=== PATIENT | male | born 1950 | race Caucasian/White ===

== ENCOUNTER 2017-06-13 20:37 | Emergency (ER) | payer BC, SELFPAY ==
[2017-06-13 20:46] VITALS: BP 146/95; PULSE 89; RESP 14; TEMP 36.5; O2SAT 99; BMI 29.2
--- NOTE | 2017-06-13 20:56 | CT_ITS ---
CT abdomen pelvis wo con Ordering Physician: Dima Jones MD Patient Age: 66 years: Male HISTORY: ITS.REASON: pain TECHNIQUE: Helical CT scanning performed through abdomen and pelvis with no oral or IV contrast utilized. COMPARISON :No relevant studies FINDINGS Lung bases,.. Mild dependent atelectasis. Scattered blebs Heart normal size ABDOMEN/PELVIS. Lack of oral and IV contrast decreases sensitivity. Liver:. No focal lesions. Mild hepatic steatosis.No biliary ductal dilatation Gallbladder:. No discrete calcified stones no acute findings. Pancreas. Unremarkable on this noncontrast study. Adrenals: satisfactory. Spleen. Modest size with scattered small renal breast calcifications. KIDNEYS. LEFT KIDNEY:. . Only minor fullness and minor dilatation left pelvicalyceal system. But no bee hydronephrosis. Prominent Stranding is seen about the left kidney-this is stranding may reflect prior higher grade obstructive uropathy, although cannot exclude associated pyelonephritis.. . Left ureter is more generous than the right. This appears be due to 2 adjacent small calculi at the distal most left ureter healing bilobed calcification here. These measure up to 3.5 mm transverse maxillary and together measure 5 mm length along the axis of the ureter. But these are located at the distal most left ureter just proximal to the left UVJ.. No additional calculi at the left kidney. 15 mm cyst at the medial portion upper left.. Likely benign cyst. RIGHT KIDNEY. Trace stranding. No calculi. No hydronephrosis or dilatation. PELVIS. Urinary bladder. Unremarkable seminal vesicles unremarkable. No free fluid. GI TRACT . Diverticulosis colon most extensive at sigmoid colon with a few diverticuli at descending colon. No diverticulitis. Upper normal wall thickness at the splenic flexure most likely reflecting lack of distention. Appendix is normal. Terminal ileum unremarkable. Small bowel unremarkable. Food filled stomach. Diffuse calcification aorta and iliac vessels. No aneurysm. Small fat-containing hernia bilateral Osseous. Degenerative disc space narrowing and disc bulge L3/4. Degenerative facet changes most evident at lower L-spine. No osseous lesions. Minor early degenerative changes at hips right greater than left. . . IMPRESSION: 1. Current Mild obstructive uropathy on left.: ... 2 small adjacent calculi at distal most left ureter just adjacent to the left UVJ. ... These calculi Measure up to 3.5 mm transverse & together measure 5 mm length .... Mild obstruction left ureter with mild fullness, minor dilatation of left pelvicalyceal system. .... Prominent stranding about the left kidney, may reflect a previous high-grade obstruction although could not exclude developing pyelonephritis with this appearance. Correlation required 2. Colonic diverticulosis most evident sigmoid colon. No diverticulitis. 3. Mild hepatic steatosis.
[2017-06-13 21:37] LABS: Basophils # 0.1 K/mm3 (0-0.2); Basophils % 0.8 % (0.1-2.0); Eosinophils # 0.1 K/mm3 (0.0-0.4); Eosinophils % 0.4 % (0.1-12.0); Hematocrit 43.7 % (42.0-52.0); Hemoglobin 14.6 g/dL (14.1-18.0); Lymphocytes % 17.9 K/mm3 (10-50); Mean Corpuscular HGB Conc 33.4 g/dL (31.8-35.4); Mean Corpuscular Hemoglobin 31.1 pg (27.0-31.2); Mean Platelet Volume 8.5 fl (7.4-10.4); Monocytes # 0.7 K/mm3 (0.1-1.0); Monocytes % 4.3 % (1.7-9.3); Neutrophils # 12.7 K/mm3 (1.8-7.8); Neutrophils % 76.7 % (37.0-80.0); Platelet Count 290 K/mm3 (142-424); Red Cell Distribution Width 12.8 % (11.5-17.5); White Blood Count 16.5 K/mm3 (4.8-10.8)
--- NOTE | 2017-06-13 21:43 | HMH.EDGENADL ---
ED Disposition Clinical Impression: Ureteral calculus Disposition: Home, Self-Care Condition on Discharge: Good Instructions: DI for Kidney Stones Additional Instructions: Additional instructions for KIDNEY STONE (URETERAL CALCULUS): See your physician as soon as possible for further evaluation. Drink plenty of fluids. Strain your urine and save any stones you catch. Return immediately if you develop a fever or have uncontrollable vomiting or uncontrollable pain. Additional instructions for CONTROLLED SUBSTANCES: You have been prescribed a medication that is a controlled substance. Controlled substances include pain medications known as opiates and sedative nerve medications known as benzodiazepines. Some common opiates include: Codeine (such as Tylenol #3) Hydrocodone (Vicodin, Lortab, Lorcet, [place]) Oxycodone (Percocet, Percodan, Oxycodone, Oxy IR) Some common benzodiazepines include: Diazepam (Valium) Lorazepam (Ativan) Alprazolam (Xanax) Clonazepam (Klonopin) Oxazepam (Serax) All of these controlled substances are highly addictive and frequently abused. Misuse can and frequently does lead to addiction as well as overdose and . Medication should be stored in a locked cabinet or other secure storage unit. Do not store the medication in a motor vehicle. Short term supplies, 3 days or less, are prescribed because of the highly addictive nature of the medication. Any of the controlled substance medication NOT taken should be disposed of properly and NOT SAVED. The recommended method of disposing of unused medications is: Place the medicines in a sealable plastic bag. If the medicine is a solid, crush it or add water to dissolve it. Add something undesirable (cat litter, coffee grounds, etc.) Dispose of sealed bag in household trash Do not flush or pour unused medicines down a sink or drain. Controlled substances should not be shared, given away or sold. Because of the addictive nature and frequent abuse, these medications are sometimes stolen. These medications should be kept in a safe place where they cannot be stolen. Do not keep them in your car or purse. Lost or stolen prescriptions for controlled substances WILL NOT BE REFILLED in this emergency department, regardless of whether a police report was filed. Prescriptions: Oxycodone HCl/Acetaminophen [Percocet 5/325mg tablet] 1 tab PO Q6HP PRN #10 tab PRN Reason: Severe Pain Ondansetron [Zofran 4mg ODT] 4 mg PO TIDP PRN #10 tab.rapdis PRN Reason: Nausea And Vomiting Tamsulosin HCl [Flomax 0.4mg capsule] 0.4 mg PO DAILY #7 cap.er.24h Referrals: Provider,Referral, [Primary Care Provider] - - Critical Care Critical Care Time: No Attestation: On 06/13/17, the high probability of a clinically significant, sudden or life threatening deterioration of the following system(s) required my full and direct attention, intervention and personal management. The time I documented below is in addition to time spent performing reported procedures but includes the following listed in this critical care notation. Medical Decision Making Vital Signs: 06/13/17 20:46 Temperature 97.7 F Temperature Source Oral Pulse Rate [Right Radial] 89 Respiratory Rate 14 Blood Pressure [Right Arm] 146/95 Blood Pressure Mean [Right Arm] 112 Blood Pressure Source [Right Arm] Automatic Cuff Blood Pressure Position [Right Arm] Sitting 02 Sat by Pulse Oximetry 99 Oxygen Delivery Method Room Air - Lab Data Lab Results 06/13/17 21:15: WBC 16.5 H, RBC 4.70, Hgb 14.6, Hct 43.7, MCV 93.0, MCH 31.1, MCHC 33.4, RDW 12.8, Plt Count 290, MPV 8.5, Neut % (Auto) 76.7, Lymph % (Auto) 17.9, [place] % (Auto) 4.3, Eos % (Auto) 0.4, Baso % (Auto) 0.8, Neut # (Auto) 12.7 H, Lymph # (Auto) 3.0, [place] # (Auto) 0.7, Eos # (Auto) 0.1, Baso # (Auto) 0.1 06/13/17 21:15: Sodium 139, Potassium 4.3, Chloride 103, Carbon Dioxide 24, Anion Gap 16.3 H, BUN 22 H, Creatinine 1.95 H, Es
[2017-06-13 21:48] LABS: Alanine Aminotransferase 33 U/L (12-78); Albumin Level 4.3 gm/dL (3.4-5.0); Alkaline Phosphatase 83 U/L (46-116); Anion Gap 16.3 mEq/L (5-15); Aspartate Amino Transferase 22 U/L (15-37); Bilirubin,Total 0.5 mg/dL (0.2-1.0); Blood Urea Nitrogen 22 mg/dL (7-18); Calcium 9.5 mg/dL (8.5-10.1); Carbon Dioxide 24 mmol/L (21.0-32.0); Chloride 103 mmol/L (98-107); Creatinine Clearance Estimated 52 mL/min (0-300); Creatinine,Serum 1.95 mg/dL (0.70-1.30); Estimated Glomerular Filt Rate 35 ml/min (>60); GFR (African American) 42 ML/MIN (>60); Globulin 4.5 gm/dl (1.3-3.2); Glucose 140 mg/dL (74-106); Potassium 4.3 mmoL/L (3.5-5.1); Sodium 139 mmol/L (136-145); Total Protein,Serum 8.8 gm/dL (6.4-8.2)
[2017-06-13 21:56] LABS: Microscopic, Urine URINE MICROSCOPIC (MICROSCOPIC)
[2017-06-13 22:01] LABS: Appearance,Urine CLEAR (Clear); Bilirubin,Urine Negative (Negative); Blood, Urine MODERATE (Negative); Color,Urine YELLOW (Yellow); Glucose,Urine (UA) Negative (Negative); Ketones,Urine Negative (Negative); Leukocyte Esterase,Urine Negative (Negative); Nitrate,Urine Negative (Negative); PH,Urine 5.5 (5.0-8.5); Protein,Urine TRACE (Negative); Specific Gravity, Urine >= 1.030 (1.005-1.030); Urobilinogen,Urine 0.2 EU/dl (0.2)
[2017-06-13 22:05] LABS: MANUAL DIFFERENTIAL MANUAL DIFFERENTIAL (MANUAL DIFF)
[2017-06-13 22:10] LABS: Mucus,Urine 1+ /lpf; WBC,Urine Occasional #/hpf (0-3)
[2017-06-13 23:04] LABS: Hypersegmented Neutrophils 1+; Lymphocytes % 16 % (10-50); Neutrophils % 74 % (42-76); Platelet Estimate Normal; Total Cells Counted 100
[2017-06-13 23:05] LABS: Macrocytosis 1+
[2017-06-13 23:13] VITALS: BP 136/79; PULSE 95; RESP 20; TEMP 36.8; O2SAT 96
== END 2017-06-13 23:15 | disposition home or self-care (01) ==
PROVIDERS: Emergency Provider Emergency Medicine; Family Provider Internal Medicine Adolescent Medicine
DX: N20.1 Calculus of ureter (principal); Z79.82 Long term (current) use of aspirin; Z79.899 Other long term (current) drug therapy; Z87.891 Personal history of nicotine dependence
CPT/HCPCS: 74176; 80053; 81001; 85007; 85025; 96360; 96365; 96375; 99283; J2405

== ENCOUNTER 2017-06-16 14:59 | Observation (INO) | payer BC, SELFPAY ==
[2017-06-16 14:13] LABS: Basophils # 0.1 K/mm3 (0-0.2); Basophils % 0.6 % (0.1-2.0); Eosinophils # 0.2 K/mm3 (0.0-0.4); Eosinophils % 1.1 % (0.1-12.0); Hematocrit 39.5 % (42.0-52.0); Hemoglobin 13.3 g/dL (14.1-18.0); Mean Corpuscular HGB Conc 33.8 g/dL (31.8-35.4); Mean Corpuscular Hemoglobin 31.5 pg (27.0-31.2); Mean Corpuscular Volume 93.4 fl (80-94); Mean Platelet Volume 8.3 fl (7.4-10.4); Monocytes # 1.3 K/mm3 (0.1-1.0); Monocytes % 8.2 % (1.7-9.3); Neutrophils # 11.2 K/mm3 (1.8-7.8); Neutrophils % 71.1 % (37.0-80.0); Platelet Count 277 K/mm3 (142-424); Red Blood Count 4.23 M/mm3 (4.60-6.20); Red Cell Distribution Width 12.8 % (11.5-17.5); White Blood Count 15.7 K/mm3 (4.8-10.8)
[2017-06-16 14:16] LABS: MANUAL DIFFERENTIAL MANUAL DIFFERENTIAL (MANUAL DIFF)
[2017-06-16 14:31] LABS: Alanine Aminotransferase 22 U/L (12-78); Albumin Level 3.4 gm/dL (3.4-5.0); Albumin/Globulin Ratio 0.7 (1.1-1.8); Alkaline Phosphatase 69 U/L (46-116); Anion Gap 15.1 mEq/L (5-15); Aspartate Amino Transferase 13 U/L (15-37); Bilirubin,Total 0.7 mg/dL (0.2-1.0); Blood Urea Nitrogen 30 mg/dL (7-18); Calcium 8.9 mg/dL (8.5-10.1); Carbon Dioxide 23 mmol/L (21.0-32.0); Chloride 102 mmol/L (98-107); Creatinine,Serum 2.81 mg/dL (0.70-1.30); Estimated Glomerular Filt Rate 23 ml/min (>60); GFR (African American) 28 ML/MIN (>60); Globulin 4.7 gm/dl (1.3-3.2); Glucose 110 mg/dL (74-106); Potassium 4.1 mmoL/L (3.5-5.1); Sodium 136 mmol/L (136-145); Total Protein,Serum 8.1 gm/dL (6.4-8.2)
[2017-06-16 14:43] LABS: Lymphocytes % 17 % (10-50); Monocytes % 9 % (2-9); Neutrophils % 72 % (42-76); Platelet Estimate Normal; Total Cells Counted 100
[2017-06-16 14:44] LABS: RBC Morphology Normal
[2017-06-16 15:30] VITALS: BP 116/62; PULSE 82; RESP 18; TEMP 36.8; O2SAT 98; BMI 29.9
--- NOTE | 2017-06-16 16:42 | XR_ITS ---
XR KUB CLINICAL INDICATION: Follow-up ureteral stone, flank pain ITS.REASON: KIDNEY STONE ORDERING PHYSICIAN: Nick Espinoza MD PATIENT AGE: 66 years COMPARISON: CT scan 06/13/2017 FINDINGS: There is a persistent 4 mm calcific density in the left pelvic region consistent with a residual ureteral vesicle junction stone. No other calculi apparent. Nonspecific bowel gas pattern with atherosclerotic calcification of the iliac vessels noted. No acute bony anomalies. IMPRESSION: 4 mm left ureterovesical junction stone not significant change from the CT scan of 06/13/2017
--- NOTE | 2017-06-16 16:51 | HMH.HP ---
*Admission Date: 06/16/17 *Chief complaint: dysuria, flank pain *History of present illness: Patient present to PCP office for ED FU on kidney stone. Patient was seen in the ED on 06/13 for severe left sided flank pain. CT scan showed left sided kidney stones with mild obstruction and renal stranding concerning for pylonephritis. WBC 16.9, creatinine 1.9, up from baseline of 1.4. Patient was d/c'd home on flomax. Today, he reports flank pain has resolved. Last [place] was last evening. Reports fevers started yesterday. No nausea, loss of appetite or vomiting. Repeat labs showed creatinine 2.81 and WBC 15.7. Patient was admitted for IV hydration and urology consult. [facility] History I have reviewed the patient's past medical history: Yes Medical History: Denies:: Cancer, Diabetes Mellitus Type 1, Diabetes Mellitus Type 2, MRSA Laterality Cases: Right: Total Knee Replacement, Bilateral: ACL Repair Other Surgeries: Yes: Coronary Stent Amputation: No Fractures: No - *Social History Educational Level: Completed College Smoking Status: Former smoker Tobacco Type: cigarettes Alcohol Intake: never Occupational Status: retired Housing: house Household Members: spouse - Psychiatric History Expresses thoughts of harming self/others: None Suicide Plan Description: No Plan *Family Hx:: Heart Attack, Hyperlipidemia, Hypertension Review of Systems - Review of Systems Review of systems:: pertinent systems reviewed and negative unless documented below - Constitutional Reports fever(s) - *Genitourinary Reports painful urination, Reports blood in urine Meds Home Medications Medication Instructions Recorded Confirmed Type Amlodipine Besylate [Amlodipine 10 mg PO DAILY 06/13/17 06/16/17 History 10mg Tab] Aspirin [Aspirin EC 325mg Tab] 325 mg PO DAILY 06/13/17 06/16/17 History Atorvastatin Calcium [Atorvastatin 80 mg PO DAILY 06/13/17 06/16/17 History 80mg Tab] Bisoprolol Fumarate [Bisoprolol 10 mg PO DAILY 06/13/17 06/16/17 History Fumarate] Lisinopril [Lisinopril 20mg Tab] 20 mg PO DAILY 06/13/17 06/16/17 History Prasugrel HCl [Prasugrel 10mg 10 mg PO DAILY 06/13/17 06/16/17 History Tab] Tamsulosin HCl [Flomax 0.4mg 0.4 mg PO DAILY 06/16/17 06/16/17 History capsule] Allergies Allergy/AdvReac Type Severity Reaction Status Date / Time No Known Allergies Allergy Verified 06/13/17 20:58 Exam Vital signs and Labs for Last 24 Hours: Temp Pulse Resp BP Pulse Ox 98.2 F 82 18 116/62 98 06/16/17 15:30 06/16/17 15:30 06/16/17 15:30 06/16/17 15:30 06/16/17 15:30 Laboratory Results - last 24 hr 06/16/17 14:02: Sodium 136, Potassium 4.1, Chloride 102, Carbon Dioxide 23, Anion Gap 15.1 H, BUN 30 H D, Creatinine 2.81 H D, Estimated GFR 23 L, Est GFR ( Amer) 28 L D, Glucose 110 H, Calcium 8.9, Total Bilirubin 0.7, AST 13 L D, ALT 22 D, Alkaline Phosphatase 69, Total Protein 8.1, Albumin 3.4, Globulin 4.7 H, Albumin/Globulin Ratio 0.7 L 06/16/17 14:02: WBC 15.7 H, RBC 4.23 L, Hgb 13.3 L, Hct 39.5 L, MCV 93.4, MCH 31.5 H, MCHC 33.8, RDW 12.8, Plt Count 277, MPV 8.3, Neut % (Auto) 71.1, Lymph % (Auto) 19.0, [place] % (Auto) 8.2, Eos % (Auto) 1.1, Baso % (Auto) 0.6, Neut # (Auto) 11.2 H, Lymph # (Auto) 3.0, [place] # (Auto) 1.3 H, Eos # (Auto) 0.2, Baso # (Auto) 0.1, Total Counted 100, Neutrophils % (Manual) 72, Band Neutrophils % 1.0, Lymphocytes % (Manual) 17, Monocytes % (Manual) 9, Basophils % (Manual) 1.0, Platelet Estimate Normal, RBC Morphology Normal I & O for Last 24 hours: Intake & Output 06/14/17 06/15/17 06/16/17 06/17/17 11:59 11:59 11:59 11:59 Weight 213 lb 9 oz Narrative: Alert and oriented x 3. Rate and rhythm regular. No LE edema. Lung sounds clear and equal. Abdomen soft and nontender. Normoactive bowel sounds No CVA tenderness H&P: Result - Labs Labs: Short CBC 06/16/17 Range/Units 14:02 WBC 15.7 H (4.8-10.8) K/mm3 Hgb 13.3 L
--- NOTE | 2017-06-16 16:54 | P.HP_ITS ---
*Admission Date: 06/16/17 *Chief complaint: dysuria, flank pain *History of present illness: Patient present to PCP office for ED FU on kidney stone. Patient was seen in the ED on 06/13 for severe left sided flank pain. CT scan showed left sided kidney stones with mild obstruction and renal stranding concerning for pylonephritis. WBC 16.9, creatinine 1.9, up from baseline of 1.4. Patient was d/c'd home on flomax. Today, he reports flank pain has resolved. Last [place] was last evening. Reports fevers started yesterday. No nausea, loss of appetite or vomiting. Repeat labs showed creatinine 2.81 and WBC 15.7. Patient was admitted for IV hydration and urology consult. [facility] [place] History I have reviewed the patient's past medical history: Yes Medical History: Denies:: Cancer, Diabetes Mellitus Type 1, Diabetes Mellitus Type 2, MRSA Laterality Cases: Right: Total Knee Replacement, Bilateral: ACL Repair Other Surgeries: Yes: Coronary Stent Amputation: No Fractures: No - *Social History Educational Level: Completed College Smoking Status: Former smoker Tobacco Type: cigarettes Alcohol Intake: never Occupational Status: retired Housing: house Household Members: spouse - Psychiatric History Expresses thoughts of harming self/others: None Suicide Plan Description: No Plan *Family Hx:: Heart Attack, Hyperlipidemia, Hypertension Review of Systems - Review of Systems Review of systems:: pertinent systems reviewed and negative unless documented below - Constitutional Reports fever(s) - *Genitourinary Reports painful urination, Reports blood in urine Meds Home Medications Medication Instructions Recorded Confirmed Type Amlodipine Besylate [Amlodipine 10 mg PO DAILY 06/13/17 06/16/17 History 10mg Tab] Aspirin [Aspirin EC 325mg Tab] 325 mg PO DAILY 06/13/17 06/16/17 History Atorvastatin Calcium [Atorvastatin 80 mg PO DAILY 06/13/17 06/16/17 History 80mg Tab] Bisoprolol Fumarate [Bisoprolol 10 mg PO DAILY 06/13/17 06/16/17 History Fumarate] Lisinopril [Lisinopril 20mg Tab] 20 mg PO DAILY 06/13/17 06/16/17 History Prasugrel HCl [Prasugrel 10mg 10 mg PO DAILY 06/13/17 06/16/17 History Tab] Tamsulosin HCl [Flomax 0.4mg 0.4 mg PO DAILY 06/16/17 06/16/17 History capsule] Allergies Allergy/AdvReac Type Severity Reaction Status Date / Time No Known Allergies Allergy Verified 06/13/17 20:58 Exam Vital signs and Labs for Last 24 Hours: Temp Pulse Resp BP Pulse Ox 98.2 F 82 18 116/62 98 06/16/17 15:30 06/16/17 15:30 06/16/17 15:30 06/16/17 15:30 06/16/17 15:30 Laboratory Results - last 24 hr 06/16/17 14:02: Sodium 136, Potassium 4.1, Chloride 102, Carbon Dioxide 23, Anion Gap 15.1 H, BUN 30 H D, Creatinine 2.81 H D, Estimated GFR 23 L, Est GFR ( Amer) 28 L D, Glucose 110 H, Calcium 8.9, Total Bilirubin 0.7, AST 13 L D, ALT 22 D, Alkaline Phosphatase 69, Total Protein 8.1, Albumin 3.4, Globulin 4.7 H, Albumin/Globulin Ratio 0.7 L 06/16/17 14:02: WBC 15.7 H, RBC 4.23 L, Hgb 13.3 L, Hct 39.5 L, MCV 93.4, MCH 31.5 H, MCHC 33.8, RDW 12.8, Plt Count 277, MPV 8.3, Neut % (Auto) 71.1, Lymph % (Auto) 19.0, [place] % (Auto) 8.2, Eos % (Auto) 1.1, Baso % (Auto) 0.6, Neut # ( Auto) 11.2 H, Lymph # (Auto) 3.0, [place] # (Auto) 1.3 H, Eos # (Auto) 0.2, Baso # (Auto) 0.1, Total Counted 100, Neutrophils % (Manual) 72, Band Neutrophils % 1.0 , Lymphocytes % (Manual) 17, Monocytes % (Manual) 9, Basoph
[2017-06-16 17:08] LABS: Microscopic, Urine URINE MICROSCOPIC (MICROSCOPIC)
--- NOTE | 2017-06-16 17:14 | HMH.GSCON ---
*Admission Date: 06/16/17 *History of present illness: Patient present to PCP office for ED FU on kidney stone. Patient was seen in the ED on 06/13 for severe left sided flank pain. CT scan showed left sided kidney stones with mild obstruction and renal stranding concerning for pylonephritis. WBC 16.9, creatinine 1.9, up from baseline of 1.4. Patient was d/c'd home on flomax. Today, he reports flank pain has resolved. Last [place] was last evening. Reports fevers started yesterday. No nausea, loss of appetite or vomiting. Repeat labs showed creatinine 2.81 and WBC 15.7. Patient was admitted for IV hydration and urology consult. [facility] History Medical History: Denies:: Cancer, Diabetes Mellitus Type 1, Diabetes Mellitus Type 2, MRSA Comment: was initially seen in the emergency room your the sent home. His white count at that time was 16,000. His had no subjective fever at home. Return today for follow-up was admitted as his creatinine had increased to 2.4 and he was noted to have a low-grade temperature. He has not produced a stone but had no pain since 5 AM this morning. Laterality Cases: Right: Total Knee Replacement, Bilateral: ACL Repair Other Surgeries: Yes: Coronary Stent Amputation: No Fractures: No - *Social History Educational Level: Completed College Smoking Status: Former smoker Tobacco Type: cigarettes Alcohol Intake: never Occupational Status: retired Housing: house Household Members: spouse - Psychiatric History Expresses thoughts of harming self/others: None Suicide Plan Description: No Plan *Family Hx:: Heart Attack, Hyperlipidemia, Hypertension Meds Home Medications Medication Instructions Recorded Confirmed Type Amlodipine Besylate [Amlodipine 10 mg PO DAILY 06/13/17 06/16/17 History 10mg Tab] Aspirin [Aspirin EC 325mg Tab] 325 mg PO DAILY 06/13/17 06/16/17 History Atorvastatin Calcium [Atorvastatin 80 mg PO DAILY 06/13/17 06/16/17 History 80mg Tab] Bisoprolol Fumarate [Bisoprolol 10 mg PO DAILY 06/13/17 06/16/17 History Fumarate] Lisinopril [Lisinopril 20mg Tab] 20 mg PO DAILY 06/13/17 06/16/17 History Prasugrel HCl [Prasugrel 10mg 10 mg PO DAILY 06/13/17 06/16/17 History Tab] Tamsulosin HCl [Flomax 0.4mg 0.4 mg PO DAILY 06/16/17 06/16/17 History capsule] Allergies Allergy/AdvReac Type Severity Reaction Status Date / Time No Known Allergies Allergy Verified 06/13/17 20:58 Exam Vital signs and Labs for Last 24 Hours: Temp Pulse Resp BP Pulse Ox 98.2 F 82 18 116/62 98 06/16/17 15:30 06/16/17 15:30 06/16/17 15:30 06/16/17 15:30 06/16/17 15:30 Laboratory Results - last 24 hr 06/16/17 14:02: Sodium 136, Potassium 4.1, Chloride 102, Carbon Dioxide 23, Anion Gap 15.1 H, BUN 30 H D, Creatinine 2.81 H D, Estimated GFR 23 L, Est GFR ( Amer) 28 L D, Glucose 110 H, Calcium 8.9, Total Bilirubin 0.7, AST 13 L D, ALT 22 D, Alkaline Phosphatase 69, Total Protein 8.1, Albumin 3.4, Globulin 4.7 H, Albumin/Globulin Ratio 0.7 L 06/16/17 14:02: WBC 15.7 H, RBC 4.23 L, Hgb 13.3 L, Hct 39.5 L, MCV 93.4, MCH 31.5 H, MCHC 33.8, RDW 12.8, Plt Count 277, MPV 8.3, Neut % (Auto) 71.1, Lymph % (Auto) 19.0, [place] % (Auto) 8.2, Eos % (Auto) 1.1, Baso % (Auto) 0.6, Neut # (Auto) 11.2 H, Lymph # (Auto) 3.0, [place] # (Auto) 1.3 H, Eos # (Auto) 0.2, Baso # (Auto) 0.1, Total Counted 100, Neutrophils % (Manual) 72, Band Neutrophils % 1.0, Lymphocytes % (Manual) 17, Monocytes % (Manual) 9, Basophils % (Manual) 1.0, Platelet Estimate Normal, RBC Morphology Normal I & O for Last 24 hours: Intake & Output 06/13/17 06/14/17 06/15/17 06/16/17 23:59 23:59 23:59 23:59 Weight 96.87 kg - Constitutional no acute distress - *Routine Abdominal Exam Comments: No CVA tenderness CT scan reviewed. He has 2 small stones left ureterovesical junction each about 3 mm in size Results - Labs 06/16/17 14:02 06/16/17 14:02 Laboratory Results - last 24 h
--- NOTE | 2017-06-16 17:18 | P.CONS_ITS ---
*Admission Date: 06/16/17 *History of present illness: Patient present to PCP office for ED FU on kidney stone. Patient was seen in the ED on 06/13 for severe left sided flank pain. CT scan showed left sided kidney stones with mild obstruction and renal stranding concerning for pylonephritis. WBC 16.9, creatinine 1.9, up from baseline of 1.4. Patient was d/c'd home on flomax. Today, he reports flank pain has resolved. Last [place] was last evening. Reports fevers started yesterday. No nausea, loss of appetite or vomiting. Repeat labs showed creatinine 2.81 and WBC 15.7. Patient was admitted for IV hydration and urology consult. [facility] History Medical History: Denies:: Cancer, Diabetes Mellitus Type 1, Diabetes Mellitus Type 2, MRSA Comment: was initially seen in the emergency room your the sent home. His white count at that time was 16,000. His had no subjective fever at home. Return today for follow-up was admitted as his creatinine had increased to 2.4 and he was noted to have a low-grade temperature. He has not produced a stone but had no pain since 5 AM this morning. Laterality Cases: Right: Total Knee Replacement, Bilateral: ACL Repair Other Surgeries: Yes: Coronary Stent Amputation: No Fractures: No - *Social History Educational Level: Completed College Smoking Status: Former smoker Tobacco Type: cigarettes Alcohol Intake: never Occupational Status: retired Housing: house Household Members: spouse - Psychiatric History Expresses thoughts of harming self/others: None Suicide Plan Description: No Plan *Family Hx:: Heart Attack, Hyperlipidemia, Hypertension Meds Home Medications Medication Instructions Recorded Confirmed Type Amlodipine Besylate [Amlodipine 10 mg PO DAILY 06/13/17 06/16/17 History 10mg Tab] Aspirin [Aspirin EC 325mg Tab] 325 mg PO DAILY 06/13/17 06/16/17 History Atorvastatin Calcium [Atorvastatin 80 mg PO DAILY 06/13/17 06/16/17 History 80mg Tab] Bisoprolol Fumarate [Bisoprolol 10 mg PO DAILY 06/13/17 06/16/17 History Fumarate] Lisinopril [Lisinopril 20mg Tab] 20 mg PO DAILY 06/13/17 06/16/17 History Prasugrel HCl [Prasugrel 10mg 10 mg PO DAILY 06/13/17 06/16/17 History Tab] Tamsulosin HCl [Flomax 0.4mg 0.4 mg PO DAILY 06/16/17 06/16/17 History capsule] Allergies Allergy/AdvReac Type Severity Reaction Status Date / Time No Known Allergies Allergy Verified 06/13/17 20:58 Exam Vital signs and Labs for Last 24 Hours: Temp Pulse Resp BP Pulse Ox 98.2 F 82 18 116/62 98 06/16/17 15:30 06/16/17 15:30 06/16/17 15:30 06/16/17 15:30 06/16/17 15:30 Laboratory Results - last 24 hr 06/16/17 14:02: Sodium 136, Potassium 4.1, Chloride 102, Carbon Dioxide 23, Anion Gap 15.1 H, BUN 30 H D, Creatinine 2.81 H D, Estimated GFR 23 L, Est GFR ( Amer) 28 L D, Glucose 110 H, Calcium 8.9, Total Bilirubin 0.7, AST 13 L D, ALT 22 D, Alkaline Phosphatase 69, Total Protein 8.1, Albumin 3.4, Globulin 4.7 H, Albumin/Globulin Ratio 0.7 L 06/16/17 14:02: WBC 15.7 H, RBC 4.23 L, Hgb 13.3 L, Hct 39.5 L, MCV 93.4, MCH 31.5 H, MCHC 33.8, RDW 12.8, Plt Count 277, MPV 8.3, Neut % (Auto) 71.1, Lymph % (Auto) 19.0, [place] % (Auto) 8.2, Eos % (Auto) 1.1, Baso % (Auto) 0.6, Neut # ( Auto) 11.2 H, Lymph # (Auto) 3.0, [place] # (Auto) 1.3 H, Eos # (Auto) 0.2, Baso # (Auto) 0.1, Total Counted 100, Neutrophils % (Manual) 72, Band Neutrophils % 1.0 , Lymphocytes % (Manual) 17, Monocytes % (Manual) 9, Basophils % (Manual)
[2017-06-16 18:10] LABS: Bacteria,Urine 1+ /lpf; WBC,Urine Occasional #/hpf (0-3)
[2017-06-16 20:00] VITALS: BP 101/71; PULSE 82; RESP 18; TEMP 36.9; O2SAT 94
[2017-06-17 04:06] VITALS: BP 126/66; PULSE 85; RESP 18; TEMP 37; O2SAT 96
--- NOTE | 2017-06-17 05:39 | PC.NURSE ---
PATIENT HAD GOOD NIGHT UNTIL AROUND CLOSE TO MIDNIGHT THEN STATED HIS LEFT SIDE WAS HURTING RATING IT ABOUT A 9 ON THE PAIN SCALE, PAIN MED WAS GIVEN, LESS THAN 4 HOURS LATER PATIENT STATED PAIN MED ONLY EASED THE PAIN, IT DID NOT GO COMPLETELY AWAY AND REQUESTED MORE MEDICATION. PATIENT HAS ONLY SLEPT IN SHORT INTERVALS THIS SHIFT. VSS. NO ACUTE CHANGES. NO S/S OF ADVERSE REACTIONS TO PAIN MED. WILL CONTINUE TO MONITOR
--- NOTE | 2017-06-17 06:16 | PC.NURSE ---
PT REFUSED A BATH. PT STATED HE TOOK A SHOWER AT HOME. MICHEAL NOTIFIED
[2017-06-17 06:57] LABS: Blood Urea Nitrogen 28 mg/dL (7-18); Carbon Dioxide 22 mmol/L (21.0-32.0); Chloride 105 mmol/L (98-107); Creatinine Clearance Estimated 41 mL/min (0-300); Creatinine,Serum 2.48 mg/dL (0.70-1.30); Estimated Glomerular Filt Rate 26 ml/min (>60); GFR (African American) 32 ML/MIN (>60); Glucose 101 mg/dL (74-106); Sodium 139 mmol/L (136-145)
[2017-06-17 06:58] LABS: Basophils # 0.1 K/mm3 (0-0.2); Basophils % 0.6 % (0.1-2.0); Eosinophils # 0.2 K/mm3 (0.0-0.4); Hemoglobin 12.5 g/dL (14.1-18.0); Lymphocytes # 3.5 K/mm3 (0.7-4.5); Lymphocytes % 28.3 K/mm3 (10-50); Mean Corpuscular HGB Conc 33.8 g/dL (31.8-35.4); Mean Corpuscular Hemoglobin 31.4 pg (27.0-31.2); Mean Corpuscular Volume 92.9 fl (80-94); Mean Platelet Volume 8.4 fl (7.4-10.4); Monocytes % 8.2 % (1.7-9.3); Neutrophils # 7.6 K/mm3 (1.8-7.8); Platelet Count 233 K/mm3 (142-424); Red Blood Count 3.98 M/mm3 (4.60-6.20); Red Cell Distribution Width 12.8 % (11.5-17.5); White Blood Count 12.4 K/mm3 (4.8-10.8)
--- NOTE | 2017-06-17 07:06 | P.CONPHA_ITS ---
[facility] Pharmacy VTE Monitoring - Patient Demographics Admission date: 06/16/17 Report Date: 06/17/17 Time: 07:05 Allergies/Adverse Reactions: Patient Allergies No Known Allergies Allergy (Verified 06/13/17 20:58) Height: 1.8 m Weight: 96.87 kg Patient Problems: Current Active Problems Nephrolithiasis (Acute) Acute kidney injury (Acute) - VTE Risk Labs: VTE Related Lab Results Hgb 13.3 g/dL (14.1-18.0) L 06/16/17 14:02 Hct 39.5 % (42.0-52.0) L 06/16/17 14:02 Plt Count 277 K/mm3 (142-424) 06/16/17 14:02 BUN 28 mg/dL (7-18) H 06/17/17 06:20 Creatinine 2.48 mg/dL (0.70-1.30) H 06/17/17 06:20 Estimated Creat Clear 41 mL/min (0-300) 06/17/17 06:20 Was VTE Risk Assessment Performed: No VTE Score: 1 VTE Risk Level: Very Low Risk - Prophylaxis VTE Prophylaxis Ordered?: Yes Types of VTE Prophylaxis: TEDS Knee High Location of Applied Device: Bilateral Lower Extremeties - VTE Diagnosis Confirmed Treatment or plan recommended: Continue Current Treatment
[2017-06-17 07:26] LABS: Appearance,Urine CLEAR (Clear); Bilirubin,Urine Negative (Negative); Blood, Urine Negative (Negative); Color,Urine YELLOW (Yellow); Leukocyte Esterase,Urine Negative (Negative); Nitrate,Urine Negative (Negative); PH,Urine 5.5 (5.0-8.5); Protein,Urine TRACE (Negative); Specific Gravity, Urine >= 1.030 (1.005-1.030); Urobilinogen,Urine 0.2 EU/dl (0.2)
[2017-06-17 07:28] LABS: Glucose,Urine (UA) Negative (Negative)
[2017-06-17 07:39] LABS: Ketones,Urine Negative (Negative)
[2017-06-17 08:35] VITALS: BP 110/44; PULSE 60; RESP 18; TEMP 36.3; O2SAT 97
--- NOTE | 2017-06-17 08:36 | HMH.ACPN2 ---
Internal Medicine - PN: Subj *Date: 06/17/17 *Time: 08:36 Interval history: Patient is alert, pleasant, oriented. Lungs are clear, heart rate regular, abdomen is full and distended. Normal bowel sounds, no CVA tenderness. Exam Vital signs and Labs for Last 24 Hours: Temp Pulse Resp BP Pulse Ox 98.6 F 85 18 126/66 96 06/17/17 04:06 06/17/17 04:06 06/17/17 04:06 06/17/17 04:06 06/17/17 04:06 Laboratory Results - last 24 hr 06/16/17 14:02: Sodium 136, Potassium 4.1, Chloride 102, Carbon Dioxide 23, Anion Gap 15.1 H, BUN 30 H D, Creatinine 2.81 H D, Estimated GFR 23 L, Est GFR ( Amer) 28 L D, Glucose 110 H, Calcium 8.9, Total Bilirubin 0.7, AST 13 L D, ALT 22 D, Alkaline Phosphatase 69, Total Protein 8.1, Albumin 3.4, Globulin 4.7 H, Albumin/Globulin Ratio 0.7 L 06/16/17 14:02: WBC 15.7 H, RBC 4.23 L, Hgb 13.3 L, Hct 39.5 L, MCV 93.4, MCH 31.5 H, MCHC 33.8, RDW 12.8, Plt Count 277, MPV 8.3, Neut % (Auto) 71.1, Lymph % (Auto) 19.0, [place] % (Auto) 8.2, Eos % (Auto) 1.1, Baso % (Auto) 0.6, Neut # (Auto) 11.2 H, Lymph # (Auto) 3.0, [place] # (Auto) 1.3 H, Eos # (Auto) 0.2, Baso # (Auto) 0.1, Total Counted 100, Neutrophils % (Manual) 72, Band Neutrophils % 1.0, Lymphocytes % (Manual) 17, Monocytes % (Manual) 9, Basophils % (Manual) 1.0, Platelet Estimate Normal, RBC Morphology Normal 06/16/17 16:45: Urine Color Yellow, Urine Appearance Clear, Urine pH 5.5, Ur Specific [place] >= 1.030, Urine Protein Trace, Urine Glucose (UA) Negative, Urine Ketones Negative, Urine Blood Negative, Urine Nitrate Negative, Urine Bilirubin Negative, Urine Urobilinogen 0.2, Ur Leukocyte Esterase Negative, Urine RBC None, Urine WBC Occasional, Ur Squamous Epith Cells 3-5, Urine Bacteria 1+ 06/17/17 06:20: WBC 12.4 H, RBC 3.98 L, Hgb 12.5 L, Hct 37.0 L, MCV 92.9, MCH 31.4 H, MCHC 33.8, RDW 12.8, Plt Count 233, MPV 8.4, Neut % (Auto) 61.0, Lymph % (Auto) 28.3, [place] % (Auto) 8.2, Eos % (Auto) 2.0, Baso % (Auto) 0.6, Neut # (Auto) 7.6, Lymph # (Auto) 3.5, [place] # (Auto) 1.0, Eos # (Auto) 0.2, Baso # (Auto) 0.1 06/17/17 06:20: Sodium 139, Potassium 4.0, Chloride 105, Carbon Dioxide 22, Anion Gap 16.0 H, BUN 28 H, Creatinine 2.48 H, Estimated Creat Clear 41, Estimated GFR 26 L, Est GFR ( Amer) 32 L, Glucose 101 I & O for Last 24 hours: Intake & Output 06/14/17 06/15/17 06/16/17 06/17/17 11:59 11:59 11:59 11:59 Intake Total 400 / 400 Output Total 1490 / 1490 Balance -1090 / -1090 Weight 213 lb 8.989 oz Assessment and Plan (1) Nephrolithiasis Current visit: Yes Status: Acute Category: Medical Code(s): N20.0 - Calculus of kidney (2) Acute kidney injury Current visit: Yes Status: Acute Category: Medical Code(s): N17.9 - Acute kidney failure, unspecified - Assessment and plan all Dx Assessment and Plan for all problems:: Overall improving from a clinical standpoint. Creatinine is improved. Check CT scan of abdomen for stone protocol tomorrow morning. If no movement urology consultation. Fleets enema for perceived constipation.
--- NOTE | 2017-06-17 08:40 | P.PN_ITS ---
Internal Medicine - PN: Subj *Date: 06/17/17 *Time: 08:36 Interval history: Patient is alert, pleasant, oriented. Lungs are clear, heart rate regular, abdomen is full and distended. Normal bowel sounds, no CVA tenderness. Exam Vital signs and Labs for Last 24 Hours: Temp Pulse Resp BP Pulse Ox 98.6 F 85 18 126/66 96 06/17/17 04:06 06/17/17 04:06 06/17/17 04:06 06/17/17 04:06 06/17/17 04:06 Laboratory Results - last 24 hr 06/16/17 14:02: Sodium 136, Potassium 4.1, Chloride 102, Carbon Dioxide 23, Anion Gap 15.1 H, BUN 30 H D, Creatinine 2.81 H D, Estimated GFR 23 L, Est GFR ( Amer) 28 L D, Glucose 110 H, Calcium 8.9, Total Bilirubin 0.7, AST 13 L D, ALT 22 D, Alkaline Phosphatase 69, Total Protein 8.1, Albumin 3.4, Globulin 4.7 H, Albumin/Globulin Ratio 0.7 L 06/16/17 14:02: WBC 15.7 H, RBC 4.23 L, Hgb 13.3 L, Hct 39.5 L, MCV 93.4, MCH 31.5 H, MCHC 33.8, RDW 12.8, Plt Count 277, MPV 8.3, Neut % (Auto) 71.1, Lymph % (Auto) 19.0, [place] % (Auto) 8.2, Eos % (Auto) 1.1, Baso % (Auto) 0.6, Neut # ( Auto) 11.2 H, Lymph # (Auto) 3.0, [place] # (Auto) 1.3 H, Eos # (Auto) 0.2, Baso # (Auto) 0.1, Total Counted 100, Neutrophils % (Manual) 72, Band Neutrophils % 1.0 , Lymphocytes % (Manual) 17, Monocytes % (Manual) 9, Basophils % (Manual) 1.0, Platelet Estimate Normal, RBC Morphology Normal 06/16/17 16:45: Urine Color Yellow, Urine Appearance Clear, Urine pH 5.5, Ur Specific [place] >= 1.030, Urine Protein Trace, Urine Glucose (UA) Negative, Urine Ketones Negative, Urine Blood Negative, Urine Nitrate Negative, Urine Bilirubin Negative, Urine Urobilinogen 0.2, Ur Leukocyte Esterase Negative, Urine RBC None, Urine WBC Occasional, Ur Squamous Epith Cells 3-5, Urine Bacteria 1+ 06/17/17 06:20: WBC 12.4 H, RBC 3.98 L, Hgb 12.5 L, Hct 37.0 L, MCV 92.9, MCH 31.4 H, MCHC 33.8, RDW 12.8, Plt Count 233, MPV 8.4, Neut % (Auto) 61.0, Lymph % (Auto) 28.3, [place] % (Auto) 8.2, Eos % (Auto) 2.0, Baso % (Auto) 0.6, Neut # ( Auto) 7.6, Lymph # (Auto) 3.5, [place] # (Auto) 1.0, Eos # (Auto) 0.2, Baso # (Auto ) 0.1 06/17/17 06:20: Sodium 139, Potassium 4.0, Chloride 105, Carbon Dioxide 22, Anion Gap 16.0 H, BUN 28 H, Creatinine 2.48 H, Estimated Creat Clear 41, Estimated GFR 26 L, Est GFR ( Amer) 32 L, Glucose 101 I & O for Last 24 hours: Intake & Output 06/14/17 06/15/17 06/16/17 06/17/17 11:59 11:59 11:59 11:59 Intake Total 400 / 400 Output Total 1490 / 1490 Balance -1090 / -1090 Weight 213 lb 8.989 oz Assessment and Plan (1) Nephrolithiasis Current visit: Yes Status: Acute Category: Medical Code(s): N20.0 - Calculus of kidney (2) Acute kidney injury Current visit: Yes Status: Acute Category: Medical Code(s): N17.9 - Acute kidney failure, unspecified - Assessment and plan all Dx Assessment and Plan for all problems:: Overall improving from a clinical standpoint. Creatinine is improved. Check CT scan of abdomen for stone protocol tomorrow morning. If no movement urology consultation. Fleets enema for perceived constipation.
[2017-06-17 08:57] LABS: Blood Urea Nitrogen 29 mg/dL (7-18); Creatinine Clearance Estimated 41 mL/min (0-300); Creatinine,Serum 2.51 mg/dL (0.70-1.30); Estimated Glomerular Filt Rate 26 ml/min (>60); GFR (African American) 31 ML/MIN (>60)
[2017-06-17 16:00] VITALS: BP 124/78; PULSE 83; RESP 18; TEMP 36.9; O2SAT 96
--- NOTE | 2017-06-17 17:25 | PC.NURSE ---
pt has had no changes from previous assessment. lungs are clear, bowel sounds are hypoactive with some abdominal distention. heart sounds normal. pt uses house shoes instead of nonskids but nonskids are available at bedside. iv is patent and no s/s of infiltration. pt had fleet enema today with no results but is does have flatulence. call light in reach and bed in lowest position. will continue to monitor pt condition.
--- NOTE | 2017-06-17 18:52 | PC.NURSE ---
report to be given to dulce mo rn
[2017-06-17 19:50] VITALS: O2SAT 96
[2017-06-17 20:00] VITALS: BP 142/85; PULSE 97; RESP 20; TEMP 36.4; O2SAT 96
--- NOTE | 2017-06-18 | CT_ITS ---
CT abdomen pelvis wo con CLINICAL INDICATION: Follow-up left ureteral stone. Evaluate position of left ureteral stone, left flank pain ITS.REASON: LEFT KIDNEY STONE ORDERING PHYSICIAN: Nick Espinoza MD PATIENT AGE: 66 years COMPARISON: 06/13/2017 TECHNIQUE: Axial images obtained with sagittal and coronal reformats. PROCEDURE: Oral Contrast: None IV Contrast: None . FINDINGS: No acute finding in the lower chest. Gallbladder is distended. Scattered calcifications are present within the liver. No focal liver lesion evident. Spleen, adrenal glands, pancreas, and right kidney are unremarkable. The remains mild left hydronephrosis and hydroureter. Previously noted left ureterovesical junction stone/stones are unchanged. There appears to be 2 adjacent stones or lobular stone at the UVJ measuring approximately 4 5-mm in combination. Stranding of the left perinephric and periureteral fat stranding of the fat around the left renal pelvis. This fat infiltration is worse on today's exam could be due to superimposed infection. Incidental note made of colonic diverticulosis. No evidence of diverticulitis or appendicitis. No intestinal obstruction or free air. IMPRESSION: 1. Overall no change in the left ureter vesicle junction lobular stone versus 2 separate adjacent stones. 2. Persistent left hydroureteronephrosis which is slightly worse. 3. Increased stranding of the perinephric and periureteral fat which may be related to underlying infection.
[2017-06-18 04:00] VITALS: BP 131/70; PULSE 95; RESP 18; TEMP 36.7; O2SAT 95
--- NOTE | 2017-06-18 07:37 | PC.NURSE ---
REPORT GIVEN TO Shahida VELARDE W/C
--- NOTE | 2017-06-18 08:20 | PC.NURSE ---
C/O PAIN IN ABDOMEN AND LOWER PORTION OF BACK, ADMINISTERED PRN PAIN MEDICATION PER MAR, ON REASSESSMENT PT RESTING WITH EYES CLOSED. URINE STRAINED. ADEQUATE UO NOTED. NO STOOL NOTED. HYPERACTIVE BOWEL SOUNDS AND MILD DISTENSION, NONTENDER AND SOFT PER PALPATION. VSS. WILL CONTINUE TO MONITOR.
[2017-06-18 08:40] VITALS: BP 134/76; PULSE 96; RESP 18; TEMP 36.8; O2SAT 99
--- NOTE | 2017-06-18 08:42 | HMH.ACPN2 ---
Internal Medicine - PN: Subj *Date: 06/18/17 *Time: 08:00 Interval history: Patient continues to have some intermittent left flank pain. Denies pain at current. Fevers have resolved. No further dysuria. He was given an enema and mag citrate for perceived constipation with no results. Exam Vital signs and Labs for Last 24 Hours: Temp Pulse Resp BP Pulse Ox 98.0 F 95 H 18 131/70 95 06/18/17 04:00 06/18/17 04:00 06/18/17 04:00 06/18/17 04:00 06/18/17 04:00 Laboratory Results - last 24 hr 06/17/17 08:43: BUN 29 H, Creatinine 2.51 H, Estimated Creat Clear 41, Estimated GFR 26 L, Est GFR ( Amer) 31 L I & O for Last 24 hours: Intake & Output 06/15/17 06/16/17 06/17/17 06/18/17 11:59 11:59 11:59 11:59 Intake Total 640 / 640 6697 / 6697 Output Total 1890 / 1890 3500 / 3500 Balance -1250 / -1250 3197 / 3197 Weight 213 lb 8.989 oz Microbiology Reports for the Last 24 Hours: Microbiology 06/16/17 16:45 Urethra Urine Culture - Preliminary NO GROWTH AFTER 24 HOURS 06/16/17 16:07 Blood Blood Culture - Preliminary NO GROWTH AFTER 24 HOURS 06/16/17 16:07 Blood Blood Culture - Preliminary NO GROWTH AFTER 24 HOURS Narrative: ALert and oriented x 3. Rate and rhythm regular. Abdomen soft, and nontender. Normoactive Bowel Sounds. No LE edema. No CVA tenderness. Assessment and Plan (1) Nephrolithiasis Current visit: Yes Status: Acute Category: Medical Code(s): N20.0 - Calculus of kidney (2) Acute kidney injury Current visit: Yes Status: Acute Category: Medical Code(s): N17.9 - Acute kidney failure, unspecified - Assessment and plan all Dx Assessment and Plan for all problems:: Repeat CT stone protocol today. Will evaluate BMP. If stone has not moved and creatinine remains elevated will consult urology.
[2017-06-18 09:02] LABS: Basophils # 0.1 K/mm3 (0-0.2); Basophils % 0.7 % (0.1-2.0); Eosinophils # 0.2 K/mm3 (0.0-0.4); Eosinophils % 1.8 % (0.1-12.0); Hematocrit 37.2 % (42.0-52.0); Hemoglobin 12.5 g/dL (14.1-18.0); Lymphocytes # 2.5 K/mm3 (0.7-4.5); Mean Corpuscular HGB Conc 33.6 g/dL (31.8-35.4); Mean Corpuscular Hemoglobin 31.3 pg (27.0-31.2); Mean Platelet Volume 8.3 fl (7.4-10.4); Monocytes % 8.3 % (1.7-9.3); Neutrophils # 8.1 K/mm3 (1.8-7.8); Neutrophils % 68.2 % (37.0-80.0); Platelet Count 239 K/mm3 (142-424); Red Cell Distribution Width 12.8 % (11.5-17.5); White Blood Count 11.8 K/mm3 (4.8-10.8)
[2017-06-18 09:14] LABS: Anion Gap 14.5 mEq/L (5-15); Blood Urea Nitrogen 22 mg/dL (7-18); Carbon Dioxide 24 mmol/L (21.0-32.0); Chloride 106 mmol/L (98-107); Creatinine Clearance Estimated 49 mL/min (0-300); Creatinine,Serum 2.09 mg/dL (0.70-1.30); Estimated Glomerular Filt Rate 32 ml/min (>60); GFR (African American) 39 ML/MIN (>60); Glucose 114 mg/dL (74-106); Potassium 4.5 mmoL/L (3.5-5.1); Sodium 140 mmol/L (136-145)
--- NOTE | 2017-06-18 13:51 | HMH.DCSUM ---
General - General Admission date: 06/16/17 Discharge date: 06/18/17 HPI HPI: Patient presented to PCP office for ED FU on kidney stone. Patient was seen in the ED on 06/13 for severe left sided flank pain. CT scan showed left sided kidney stones with mild obstruction and renal stranding concerning for pylonephritis. WBC 16.9, creatinine 1.9, up from baseline of 1.4. Patient was d/c'd home on flomax. Today, he reports flank pain has resolved. Last [place] was last evening. Reports fevers started yesterday. No nausea, loss of appetite or vomiting. Repeat labs showed creatinine 2.81 and WBC 15.7. Patient was admitted for IV hydration and urology consult. Objective Vital signs: Temp Pulse Resp BP Pulse Ox 98.3 F 96 H 18 134/76 99 06/18/17 08:40 06/18/17 08:40 06/18/17 08:40 06/18/17 08:40 06/18/17 08:40 Hospital Course Hospital Course: Patient was admitted for IV antibiotics and urology consultation. On the day of admission, he was seen by urology who felt patient had a 50/50 chance of passing the stone without intervention. Patient was aggressively rehydrated with IVF's. Creatinine is slowly improving. Leukocytosis has improved and fevers have resolved. CT scan today showed no improvement. Urology was consulted who has scheduled a stone extraction as an outpatient tomorrow. Patient's pain is controlled with PRN medications. Discharge home after IV dose of Levaquin. Continue oral lexaquin at home q48 hours due to renal function. Aggressive oral hydration. FU with myself on 06/23/17. CBC and CMP prior to appointment. Results Labs on day of discharge: Labs from last 24 hours 06/18/17 06/18/17 08:50 08:50 WBC 11.8 H RBC 4.00 L Hgb 12.5 L Hct 37.2 L MCV 93.0 MCH 31.3 H MCHC 33.6 RDW 12.8 Plt Count 239 MPV 8.3 Neut % (Auto) 68.2 Lymph % (Auto) 21.0 [place] % (Auto) 8.3 Eos % (Auto) 1.8 Baso % (Auto) 0.7 Neut # (Auto) 8.1 H Lymph # (Auto) 2.5 [place] # (Auto) 1.0 Eos # (Auto) 0.2 Baso # (Auto) 0.1 Sodium 140 Potassium 4.5 Chloride 106 Carbon Dioxide 24 Anion Gap 14.5 BUN 22 H Creatinine 2.09 H Estimated Creat Clear 49 Estimated GFR 32 L Est GFR ( Amer) 39 L D Glucose 114 H Preliminary micro results at discharge 06/16/17 16:45 Urine Culture - Preliminary Urethra NO GROWTH AFTER 24 HOURS 06/16/17 16:07 Blood Culture - Preliminary Blood NO GROWTH AFTER 24 HOURS 06/16/17 16:07 Blood Culture - Preliminary Blood NO GROWTH AFTER 24 HOURS DS: Diagnosis - Discharge Diagnosis (1) Nephrolithiasis Status: Acute (2) Acute kidney injury Status: Acute Meds Home Medications Medication Instructions Recorded Confirmed Type Amlodipine Besylate [Amlodipine 10 mg PO DAILY 06/13/17 06/16/17 History 10mg Tab] Aspirin [Aspirin EC 325mg Tab] 325 mg PO DAILY 06/13/17 06/16/17 History Atorvastatin Calcium [Atorvastatin 80 mg PO HS 06/13/17 06/17/17 History 80mg Tab] Bisoprolol Fumarate [Bisoprolol 10 mg PO DAILY 06/13/17 06/16/17 History Fumarate] Lisinopril [Lisinopril 20mg Tab] 20 mg PO DAILY 06/13/17 06/16/17 History Prasugrel HCl [Prasugrel 10mg 10 mg PO DAILY 06/13/17 06/16/17 History Tab] Tamsulosin HCl [Flomax 0.4mg 0.4 mg PO DAILY 06/16/17 06/16/17 History capsule] Allergies Allergy/AdvReac Type Severity Reaction Status Date / Time No Known Allergies Allergy Verified 06/13/17 20:58 Discharge Plan - Patient Discharge Instructions ACTIVITY: Continue current activity DIET: continue same diet, other Additional Instructions: Aggressive oral fluid intake! - Follow up Plan Follow up with: Rosette Lewis APRN [Nurse Practitioner] - 06/23/17 Disposition: Home, Self-Jail Medications: Home Medications Medication Instructions Recorded Confirmed Type Amlodipine Besylate [Amlodipine 10 mg PO DAILY 06/13/17 06/16/17 History 10mg
--- NOTE | 2017-06-18 13:59 | P.DS_ITS ---
General - General Admission date: 06/16/17 Discharge date: 06/18/17 HPI HPI: Patient presented to PCP office for ED FU on kidney stone. Patient was seen in the ED on 06/13 for severe left sided flank pain. CT scan showed left sided kidney stones with mild obstruction and renal stranding concerning for pylonephritis. WBC 16.9, creatinine 1.9, up from baseline of 1.4. Patient was d/c'd home on flomax. Today, he reports flank pain has resolved. Last [place] was last evening. Reports fevers started yesterday. No nausea, loss of appetite or vomiting. Repeat labs showed creatinine 2.81 and WBC 15.7. Patient was admitted for IV hydration and urology consult. Objective Vital signs: Temp Pulse Resp BP Pulse Ox 98.3 F 96 H 18 134/76 99 06/18/17 08:40 06/18/17 08:40 06/18/17 08:40 06/18/17 08:40 06/18/17 08:40 Hospital Course Hospital Course: Patient was admitted for IV antibiotics and urology consultation. On the day of admission, he was seen by urology who felt patient had a 50/50 chance of passing the stone without intervention. Patient was aggressively rehydrated with IVF's. Creatinine is slowly improving. Leukocytosis has improved and fevers have resolved. CT scan today showed no improvement. Urology was consulted who has scheduled a stone extraction as an outpatient tomorrow. Patient's pain is controlled with PRN medications. Discharge home after IV dose of Levaquin. Continue oral lexaquin at home q48 hours due to renal function. Aggressive oral hydration. FU with myself on . CBC and CMP prior to appointment. Results Labs on day of discharge: Labs from last 24 hours 06/18/17 06/18/17 08:50 08:50 WBC 11.8 H RBC 4.00 L Hgb 12.5 L Hct 37.2 L MCV 93.0 MCH 31.3 H MCHC 33.6 RDW 12.8 Plt Count 239 MPV 8.3 Neut % (Auto) 68.2 Lymph % (Auto) 21.0 [place] % (Auto) 8.3 Eos % (Auto) 1.8 Baso % (Auto) 0.7 Neut # (Auto) 8.1 H Lymph # (Auto) 2.5 [place] # (Auto) 1.0 Eos # (Auto) 0.2 Baso # (Auto) 0.1 Sodium 140 Potassium 4.5 Chloride 106 Carbon Dioxide 24 Anion Gap 14.5 BUN 22 H Creatinine 2.09 H Estimated Creat Clear 49 Estimated GFR 32 L Est GFR ( Amer) 39 L D Glucose 114 H Preliminary micro results at discharge 06/16/17 16:45 Urine Culture - Preliminary Urethra NO GROWTH AFTER 24 HOURS 06/16/17 16:07 Blood Culture - Preliminary Blood NO GROWTH AFTER 24 HOURS 06/16/17 16:07 Blood Culture - Preliminary Blood NO GROWTH AFTER 24 HOURS DS: Diagnosis - Discharge Diagnosis (1) Nephrolithiasis Status: Acute (2) Acute kidney injury Status: Acute Meds Home Medications Medication Instructions Recorded Confirmed Type Amlodipine Besylate [Amlodipine 10 mg PO DAILY 06/13/17 06/16/17 History 10mg Tab] Aspirin [Aspirin EC 325mg Tab] 325 mg PO DAILY 06/13/17 06/16/17 History Atorvastatin Calcium [Atorvastatin 80 mg PO HS 06/13/17 06/17/17 History 80mg Tab] Bisoprolol Fumarate [Bisoprolol 10 mg PO DAILY 06/13/17 06/16/17 History Fumarate] Lisinopril [Li
== END 2017-06-18 15:00 | disposition home or self-care (01) ==
LOC: 2ND 15:00
PROVIDERS: Nurse Practitioner Family; Admitting Provider Internal Medicine Adolescent Medicine; PCP Internal Medicine Adolescent Medicine; Visit Provider Internal Medicine Adolescent Medicine
DX: N20.0 Calculus of kidney (principal); N17.9 Acute kidney failure, unspecified
CPT/HCPCS: 36415; 74018; 74176; 80048; 80053; 81001; 82565; 84520; 85007; 85025; 87040; 87086; G0378; J1956; J2270

== ENCOUNTER → 2017-06-22 08:32 | Outpatient (CLI) | payer BC, SELFPAY ==
[2017-06-22 09:17] LABS: Basophils # 0.1 K/mm3 (0-0.2); Basophils % 1.2 % (0.1-2.0); Eosinophils # 0.4 K/mm3 (0.0-0.4); Eosinophils % 3.3 % (0.1-12.0); Hematocrit 43.7 % (42.0-52.0); Hemoglobin 14.3 g/dL (14.1-18.0); Lymphocytes # 4.1 K/mm3 (0.7-4.5); Lymphocytes % 34.1 K/mm3 (10-50); Mean Corpuscular HGB Conc 32.8 g/dL (31.8-35.4); Mean Corpuscular Hemoglobin 31.1 pg (27.0-31.2); Mean Corpuscular Volume 94.6 fl (80-94); Mean Platelet Volume 7.9 fl (7.4-10.4); Monocytes # 0.8 K/mm3 (0.1-1.0); Neutrophils # 6.5 K/mm3 (1.8-7.8); Neutrophils % 54.4 % (37.0-80.0); Platelet Count 427 K/mm3 (142-424); Red Blood Count 4.62 M/mm3 (4.60-6.20); Red Cell Distribution Width 12.5 % (11.5-17.5); White Blood Count 11.9 K/mm3 (4.8-10.8)
[2017-06-22 10:24] LABS: Anion Gap 14.9 mEq/L (5-15); Blood Urea Nitrogen 24 mg/dL (7-18); Carbon Dioxide 30 mmol/L (21.0-32.0); Chloride 104 mmol/L (98-107); Estimated Glomerular Filt Rate 38 ml/min (>60); GFR (African American) 46 ML/MIN (>60); Glucose 97 mg/dL (74-106); Potassium 4.9 mmoL/L (3.5-5.1); Sodium 144 mmol/L (136-145)
== END ==
PROVIDERS: PCP Internal Medicine Adolescent Medicine; Visit Provider Internal Medicine Adolescent Medicine
DX: N20.0 Calculus of kidney (principal); N17.9 Acute kidney failure, unspecified
CPT/HCPCS: 36415; 80048; 85025

== ENCOUNTER → 2017-09-08 09:32 | Outpatient (CLI) | payer BC, SELFPAY ==
[2017-09-08 11:03] LABS: Basophils # 0.1 K/mm3 (0-0.2); Eosinophils # 0.3 K/mm3 (0.0-0.4); Eosinophils % 3.5 % (0.1-12.0); Hematocrit 45.5 % (42.0-52.0); Lymphocytes # 3.7 K/mm3 (0.7-4.5); Lymphocytes % 42.1 K/mm3 (10-50); Mean Corpuscular HGB Conc 32.9 g/dL (31.8-35.4); Mean Corpuscular Hemoglobin 31.3 pg (27.0-31.2); Mean Corpuscular Volume 95.2 fl (80-94); Monocytes # 0.8 K/mm3 (0.1-1.0); Monocytes % 8.7 % (1.7-9.3); Neutrophils # 3.9 K/mm3 (1.8-7.8); Neutrophils % 44.7 % (37.0-80.0); Platelet Count 291 K/mm3 (142-424); Red Blood Count 4.78 M/mm3 (4.60-6.20); Red Cell Distribution Width 13.5 % (11.5-17.5); White Blood Count 8.8 K/mm3 (4.8-10.8)
[2017-09-08 12:36] LABS: Alanine Aminotransferase 25 U/L (12-78); Albumin Level 3.9 gm/dL (3.4-5.0); Alkaline Phosphatase 92 U/L (46-116); Anion Gap 12.4 mEq/L (5-15); Aspartate Amino Transferase 20 U/L (15-37); Bilirubin,Total 0.6 mg/dL (0.2-1.0); Blood Urea Nitrogen 18 mg/dL (7-18); Calcium 9.6 mg/dL (8.5-10.1); Carbon Dioxide 26 mmol/L (21.0-32.0); Chloride 102 mmol/L (98-107); Cholesterol 124 mg/dL (140-200); Creatinine,Serum 1.26 mg/dL (0.70-1.30); Estimated Glomerular Filt Rate 58 ml/min (>60); GFR (African American) 70 ML/MIN (>60); Glucose 102 mg/dL (74-106); HDL Cholesterol 41 mg/dL (27-67); LDL Cholesterol 51 mg/dL (0-130); Potassium 4.4 mmoL/L (3.5-5.1); Sodium 136 mmol/L (136-145); Total Protein,Serum 7.9 gm/dL (6.4-8.2); Triglycerides 158 mg/dL (30-200); VLDL Cholesterol 32 mg/dL (0-40)
== END ==
PROVIDERS: Visit Provider Internal Medicine Adolescent Medicine
DX: E78.5 Hyperlipidemia, unspecified (principal); I25.10 Atherosclerotic heart disease of native coronary artery without angina pectoris
CPT/HCPCS: 36415; 80053; 80061; 85025

== ENCOUNTER → 2018-09-23 10:28 | Outpatient (CLI) | payer MEDICARE, SELFPAY ==
--- NOTE | 2018-09-23 | CA_ITS ---
PROCEDURE: 2-D M-mode and color Doppler study INDICATIONS FOR THE TEST: Chest pain COPD Heart Murmur Tobacco Smokingex Palpitations+ Fatigue Syncope Edema Hypertension+Diabetes Mellitus Rheumatic Fever SOB MICHAEL+Obesity Hyperlipidemia Family History HD Additional History CAD,STENTS PATIENT INFORMATION HEIGHT: 71 WEIGHT:215 GENDER: Male B/P:122/74 2-D/M-MODE INTERPRETATION: 2-D MEASUREMENTS OBSERVED VALUES IN CMS Right Ventricular Dimension (RVDd) 1.8 Interventricular Septum (Thickness)(IVsd) 1.4 Left Ventricular Internal Dimensions(LVIDd) 6.0 Left Ventricular Posterior Wall (Thickness)(LVPWd) 0.9 Aortic Root 2.5 Aortic Cusp Separation 1.8 Left Atrial Dimensions (LAD) 4.6 2D 1. Left atrium is mildly enlarged, left ventricle is mildly dilated, there is mild concentric left ventricular hypertrophy, visually estimated ejection fraction approximately 45-50%, there is discrete wall motion abnormality involving the anteroseptal and septal wall which is severely hypokinetic. 2. The right atrium and right ventricle are normal size and contractility. 3. The aortic valve is minimally thickened and fibrosed. 4. The mitral and tricuspid valve leaflets are minimally thickened. 5. The pulmonic valve is poorly present 6. No significant pericardial effusion noted. DOPPLER INTERROGATION: Doppler interrogation of the aortic, mitral and tricuspid valvular presence of mild to moderate mitral and mild tricuspid regurgitation, tricuspid regurgitation jet velocity is inadequate for calculation of the right ventricular systolic pressure, diastolic parameters are inconclusive. CONCLUSION: 1. Mildly enlarged left atrium, mildly dilated left ventricle, mild concentric left ventricular hypertrophy, visually estimated ejection fraction 45-50% with segmental wall motion abnormality described above, diastolic parameters are inconclusive. 2. Mild mitral and tricuspid regurgitation 3. No significant pericardial effusion noted.
--- NOTE | 2018-09-23 11:01 | XR_ITS ---
XR chest 2V HISTORY: ITS.REASON: DYSPNEA shortness of breath, previous smoker ORDERING PHYSICIAN: Nick Espinoza MD PATIENT AGE: 67 years COMPARISON: 05/14/2015 FINDINGS: The cardiomediastinal silhouette and pulmonary vascularity are within normal limits. Chronic changes with hyperinflation and attenuation of the peripheral pulmonary vessels consistent with COPD.. The coronary artery stent is present. Degenerative change thoracic spine.. IMPRESSION: COPD, no change with no acute finding
--- NOTE | 2018-09-23 11:03 | NM_ITS ---
CARDIOLITE SPECT MYOCARDIAL PERFUSION [facility], REST AND STRESS: History: Hypertension, hyperlipidemia, family history, shortness of breath and fatigue Procedure: Patient exercised on Per protocol 6 minutes and 30 seconds, resting heart rate was 82 bpm resting blood pressure 136/69, with exercise maximum heart rate achieved was 116 bpm which is equal to 75% of the maximum predicted heart rate and a blood pressure was 178/70. Test was stopped due to shortness of breath patient denied any complained of chest pain. Patient has adequate exercise capacity achieved 7mets of workload on treadmill, the blood pressure response to exercise was adequate, patient did not achieve the target heart rate. Electrocardiogram: Resting electrocardiogram showed sinus rhythm, with exercise there is 1 1 5-mm ST segment depression noted from the baseline EKG. The EKG portion of the exercise Myoview is positive for ischemia. Cardiac stress and resting SPECT images: Cardiac stress and resting SPECT images were obtained using technetium 99 Myoview 29.8 mCi at stress 10.6 mCi at rest. Gated SPECT further analysis of segmental wall motion and calculation of the ejection fraction also done. Cardiac stress and the suspect images show decreased tracer activity in the anteroseptal area in the fixed pattern consistent with area of myocardial infarction, minimal milo-infarct ischemia. Computer derived ejection fraction is 60%, with moderate inferoseptal wall right ventricle is normal size and contractility. Conclusion: 1. The EKG portion of the exercise Myoview is positive for ischemia patient has adequate exercise capacity achieved 7mets of workload on treadmill, the blood pressure response to exercise was adequate, test was started shortness of breath. 2. Scintigraphic evidence of myocardial scarring involving the anteroseptal area with minimal milo-infarct ischemia. Computer derived ejection fraction is 60% with segmental wall motion abnormality described above, right ventricle is normal size and contractility. 3. Abnormal exercise Myoview study
--- NOTE | 2018-09-23 14:18 | HMH.ITSHM ---
Current Home Medications as stated by this patient Les Pascual or sales training representative. [] lisinopril asa amlodipine bisoprolol
== END ==
PROVIDERS: PCP Internal Medicine Adolescent Medicine; Visit Provider Internal Medicine Adolescent Medicine
DX: R06.02 Shortness of breath (principal); I25.10 Atherosclerotic heart disease of native coronary artery without angina pectoris
CPT/HCPCS: 71046; 78452; 93017; 93306; A9502

== ENCOUNTER → 2019-10-20 07:23 | Outpatient (CLI) | payer MEDICARE, SELFPAY ==
--- NOTE | 2019-10-20 08:09 | CT_ITS ---
PROCEDURE: CT LUNG SCREENING CLINICAL INDICATION: HX OF SMOKING History of nicotine dependence COMPARISON: No exams were available for comparison TECHNIQUE: The exam was performed on a GE Light Speed [address] scanner using 2.90 mGy CTDI. A low dose helical CT CHEST was performed on a multi-detector scanner. All CT scans at the facility use one or more dose reduction, viz: automated exposure control, ma/kV adjustment per patient size (including targeted exams where dose is matched to indication, i.e. head), or iterative reconstruction technique. The LDCT was performed in a facility that meets the criteria for the screening program. Data regarding this exam was submitted to ACR which is an approved registry. The order for this exam indicates that it came as a result of a lung cancer screening counseling shard decision-making visit that included all the elements required of such a visit including smoking cessation. The radiologist interpreting this exam meets the CMS criteria for the LDCT lung cancer screening program. The exam is reported using the Lung-RADS classification scale and reported to the ACR registry. NOTE: This study was performed for the specific purposes of lung cancer screening and is not an alternative to diagnostic chest CT. RADIATION DOSE: CTDI vol(CT dose Index-volume) = 2.90mG DLP (Dose Length Product) = 116.46 mGcm Lung Rads Category: FINDINGS: Changes of COPD with centrilobular emphysema and evidence of old granulomatous disease. 7 mm noncalcified nodule in the right upper lobe posteriorly series 3, image 35. Scattered areas of scarring/atelectatic change. OTHER FINDINGS: Coronary artery calcification. Scattered small nodes in the mediastinum and axilla. Mildly prominent portal lymph node at 2 cm. IMPRESSION: Category 3 probably benign. 7 mm right upper lobe nodule Recommend six-month diagnostic chest CT without and with contrast COPD and coronary artery disease Dictated by: Dk Hopkins MD 10/30/2019 07:46 Electronically signed by Dk Hopkins MD in [place] 10/30/2019 07:46
== END ==
PROVIDERS: PCP Internal Medicine Adolescent Medicine; Visit Provider Internal Medicine Adolescent Medicine
DX: Z87.891 Personal history of nicotine dependence (principal); Z12.2 Encounter for screening for malignant neoplasm of respiratory organs

== ENCOUNTER → 2019-11-28 10:48 | Outpatient (CLI) | payer MEDICARE, SELFPAY ==
--- NOTE | 2019-11-28 10:48 | CA_ITS ---
APPROVED REPORT Order Filler: Bere Camacho RVT Laterality: Bilateral Study Quality: Good Indications: Carotid stenosis Risk Factors Hypertension: Hyperlipidemia Smoking Surgery/Intervention Endarterectomy: right left Doppler Spectral Velocity Analysis ECA (R) 237.50/31.70 cm/s ECA (L) 92.30/22.50 cm/s dICA (R) 78.20/21.50 cm/s dICA (L) 70.70/19.90 cm/s Clarita (R) 83.80/27.10 cm/s Clarita (L) 59.10/18.30 cm/s pICA (R) 83.50/26.40 cm/s pICA (L) 56.90/13.90 cm/s dCCA (R) 56.00/15.80 cm/s dCCA (L) 33.90/10.40 cm/s pCCA (R) 59.70/10.80 cm/s pCCA (L) 34.90/8.90 cm/s Vert (R) 46.80/12.40 cm/s Vert (L) 51.60/14.10 cm/s ICA/CCA 1.50 ICA/CCA 2.09 Findings Study suggests less than 20% stenosis of the right internal cartoid artery. Study suggests less than 20% stenosis of the left internal cartoid artery. Antegrade flow seen bilateral vertebral arteries. Conclusion No increased velocities to suggest hemodynamically significant stenosis in either internal carotid artery. Electronically signed by : Dk Hopkins MD 11/28/2019 17:06:33
== END ==
PROVIDERS: PCP Internal Medicine Adolescent Medicine; Visit Provider Urology
DX: E78.5 Hyperlipidemia, unspecified (principal); I11.9 Hypertensive heart disease without heart failure; I25.10 Atherosclerotic heart disease of native coronary artery without angina pectoris; R09.89 Other specified symptoms and signs involving the circulatory and respiratory systems; Z98.890 Other specified postprocedural states
CPT/HCPCS: 93880

== ENCOUNTER → 2020-05-11 06:58 | Outpatient (CLI) | payer MEDICARE, SELFPAY ==
[2020-05-11 07:17] LABS: Blood Urea Nitrogen 17 mg/dl (9-20); Estimated Glomerular Filt Rate 60 ml/min (>60); GFR (African American) 73 ML/MIN (>60)
--- NOTE | 2020-05-11 12:50 | CT_ITS ---
PROCEDURE: CT CHEST W CON CLINCAL INDICATION: PULMONARY NODULE follow up lung nodule no symptoms COMPARISON: CT CT LUNG SCREENING from 10/20/2019 TECHNIQUE: IV Contrast: 75ml Isovue 370 Axial images obtained with sagittal and coronal reformats. All CT scans at the facility use one or more dose reduction, viz: automated exposure control, ma/kV adjustment per patient size (including targeted exams where dose is matched to indication, i.e. head), or iterative reconstruction technique. FINDINGS: HEART AND MEDIASTINAL STRUCTURES: No mediastinal or hilar mass or adenopathy. There is severe coronary artery calcifications. LUNGS AND PLEURAL SPACES: COPD with centrilobular emphysema. No change in the 7 mm nodule in the right upper lobe posteriorly. Calcified granuloma is present in the left upper lobe. No new nodules are evident. No effusions or infiltrates. Fibrotic changes are present in the left upper lobe.. BONY STRUCTURES: No acute bony abnormalities apparent. UPPER ABDOMEN: There is scattered small nodes in the perigastric region and periportal area the measuring up to 2 cm ADDITIONAL FINDINGS: No other significant abnormalities. IMPRESSION: Stable CT appearance of the chest. No change in the 7 mm right upper lobe nodule. Suggests resume screening LD CT in September 2020. COPD with centrilobular emphysema and severe coronary artery calcification. There are mildly prominent nodes in the upper abdomen including a 2 cm periportal node etiology indeterminate Dictated by: Dk Hopkins MD 05/12/2020 10:15 Dk Hopkins MD in [place] 05/12/2020 10:15
== END ==
PROVIDERS: PCP Internal Medicine Adolescent Medicine; Visit Provider Internal Medicine Adolescent Medicine
DX: R91.1 Solitary pulmonary nodule (principal)
CPT/HCPCS: 36415; 71260; 82565; 84520; Q9967

== ENCOUNTER → 2020-11-05 09:16 | Outpatient (CLI) | payer MEDICARE, SELFPAY ==
--- NOTE | 2020-11-05 09:17 | CA_ITS ---
APPROVED REPORT EXAM: Comprehensive 2D, Doppler, and color-flow Echocardiogram Script Girl: Luna Rodriguez RT(R) Ht: 5 ft 11 in Wt: 221lbs BSA: 2.20 BP: 146/81 mmHg Indications: SOA, HTN, ex smoker, hyperlpidemia, CABG 2D Dimensions LVOT 2.18 cm (M/F) 1.5-2.5 LVEF ([facility]) 64.10 % M: 52 - 72 LV Volume 96.60 mL M: 62 - 150 LV Volume Index 43.90 mL/m2 M: 34 - 74 LA Volume 43.80 mL LA Volume Index 19.90 mL/m2 (M/F) 16-34 M-Mode Dimensions RVDd 2.18 cm (0.9-2.6) LA Diam 4.60 cm (1.9-4.0) LVDd 5.44 cm (3.5-5.7) Ao Diam 2.38 cm (2.0-3.7) LVDs 3.91 cm (3.5-5.7) IVSd 0.68 cm (0.6-1.1) PWd 0.81 cm (0.6-1.1) EF (Teich) 53.90% FS 28.10% EDV (Teich) 143.70 mL ESV (Teich) 66.30 mL LV Diastology E Decel Time 207.00 (160-240 msec) E/A Ratio 0.7 Mitral Valve MV E Max [place]. 75.00 (40-130 cm/s) MV A Velocity 110.00 (40-130 cm/s) E/A Ratio 0.68 MV Decel. Time 207.00 (160-240 ms) MV PHT 61.00 ms Left Ventricle Left atrium is mildly enlarged, left ventricle is normal size, mild concentric left ventricular hypertrophy, visually estimated ejection fraction 50%, there is discrete wall motion abnormality involving the mid septum which is akinetic. Diastolic parameters are inconclusive. Right Ventricle Right atrium and right ventricle are normal size and contractility. Aortic Valve Aortic valve is minimally thickened and fibrosed, there is no aortic stenosis or aortic insufficiency. Mitral Valve Mitral valve grossly normal, there is trace mitral regurgitation. Tricuspid Valve Tricuspid grossly normal, there is trace tricuspid regurgitation, tricuspid regurgitation jet velocity is inadequate for calculation of the right ventricular systolic pressure. Pulmonic Valve Pulmonic valve is poorly visualized. Great Vessels Aortic root is normal size. Pericardium No significant pericardial effusion noted. Conclusion 1. Mildly enlarged left atrium, normal left ventricular size, mild concentric left ventricular hypertrophy, visually estimated ejection fraction 50% with segmental wall motion abnormality described above, diastolic parameters are inconclusive. 2. Trace mitral and tricuspid regurgitation. 3. No significant pericardial effusion noted. Electronically signed by : Pio Mcdaniel, 11/05/2020 20:24:04
== END ==
PROVIDERS: PCP Internal Medicine Adolescent Medicine; Visit Provider Urology
DX: E78.2 Mixed hyperlipidemia (principal); I11.9 Hypertensive heart disease without heart failure; I25.10 Atherosclerotic heart disease of native coronary artery without angina pectoris; I42.9 Cardiomyopathy, unspecified; Z98.890 Other specified postprocedural states
CPT/HCPCS: 93306

== ENCOUNTER 2021-02-23 18:55 | Inpatient (IN) | payer MEDICARE, SELFPAY ==
--- NOTE | 2021-02-23 19:23 | XR_ITS ---
PROCEDURE INFORMATION: Exam: XR Chest Exam date and time: 02/23/2021 7:23 PM Age: 70 years old Clinical indication: Pain; On breathing; Additional info: Covid + TECHNIQUE: Imaging protocol: XR of the chest. Views: 1 view. COMPARISON: CT ANGIO CHEST PE PROTOCOL 02/23/2021 9:35 PM FINDINGS: Lungs: There is relatively diffuse ground-glass attenuation throughout the bilateral perihilar regions, with areas of consolidation in the bilateral mid lungs (left greater than right). Findings are compatible with multifocal pneumonia. There is underlying COPD. Calcified left upper lobe granuloma. Pleural spaces: No radiographically appreciable pleural effusion. No pneumothorax. Heart/Mediastinum: Normal heart size. Bones/joints: Scattered degenerative changes. IMPRESSION: Multifocal pneumonia. COPD.
[2021-02-23 19:31] VITALS: BP 153/70; PULSE 54; RESP 22; TEMP 36.9; O2SAT 84; BMI 30.8
[2021-02-23 19:35] LABS: ABG Base Excess -1.6 mmol/L (-2.4-2.3); ABG HCO3 21.6 mmhg (22.0-26.0); ABG Oxygen Saturation 91 % (90-100); ABG PCO2 28.4 mmhg (35.0-45.0); ABG PO2 56.5 mmhg (80-100); ABG TCO2 22.5 mmhg (23-27)
[2021-02-23 19:36] LABS: Influenza A, PCR Not Detected (NotDetected); Influenza B, PCR Not Detected (NotDetected)
[2021-02-23 19:37] LABS: Oxygen 5 LPM %; Source Left Radial
--- NOTE | 2021-02-23 19:38 | CT_ITS ---
PROCEDURE INFORMATION: Exam: CTA Chest With Contrast Exam date and time: 02/23/2021 7:38 PM Age: 70 years old Clinical indication: Shortness of breath; Patient HX: Covid; Additional info: SOA TECHNIQUE: Imaging protocol: Computed tomographic angiography of the chest with contrast. 3D rendering (Not supervised by radiologist): MIP and/or 3D reconstructed images were created by the technologist. Radiation optimization: All CT scans at this facility use at least one of these dose optimization techniques: automated exposure control; mA and/or kV adjustment per patient size (includes targeted exams where dose is matched to clinical indication); or iterative reconstruction. Contrast material: ISOVUE; Contrast volume: 70 ml; Contrast route: INTRAVENOUS (IV); COMPARISON: CT CHEST W CON 05/11/2020 2:08 PM FINDINGS: Pulmonary arteries: Normal. No pulmonary emboli. Aorta: Unremarkable. No aortic aneurysm. No aortic dissection. Lungs: Moderate upper lobe predominant emphysema with areas of scarring and architectural distortion. New since prior, there are extensive confluent ground-glass opacities, with scattered areas of consolidation, present throughout both lungs (left greater than right). Findings are compatible with multifocal pneumonia. Unchanged 0.7 cm nodule in the posterior right upper lobe (series 3, image 34). Pleural spaces: Trace pleural effusions. No pneumothorax. Heart: Heart size is normal. No pericardial effusion. Coronary calcifications with probable stents. Mediastinal space: Small hiatal hernia. Diffuse esophageal wall thickening, suggesting esophagitis, but not fully evaluated on CT. Possible gastroesophageal reflux. Lymph nodes: There are scattered mildly enlarged prevascular, paratracheal, precarinal, subcarinal, and bilateral hilar lymph nodes. These are likely reactive to the pneumonia. Liver: There are a few calcified granulomas in the liver. Hepatic steatosis suggested. Similar appearance of nonspecific enlarged cheryl hepatis lymph nodes, which measure up to 1.6 cm in short axis. Spleen: Calcified granulomas in the spleen. Kidneys and ureters: Left renal cyst measuring 2 cm in size. Bones/joints: Spondylosis. No acute fracture. Soft tissues: Unremarkable. IMPRESSION: 1. No evidence of pulmonary embolus. 2. Multifocal pneumonia. 3. COPD. 4. Small hiatal hernia. Diffuse esophageal wall thickening may reflect esophagitis, but is not fully assessed on CT (consider follow-up endoscopy as appropriate). 5. Unchanged 0.7 cm nodule in the posterior right upper lobe, stable since 10/20/2019. COMMENTS: Consistent with the [employer] [place]'s Incidental Findings Committee white paper (J Am Jay Jay Radiol 2018): Any incidental renal lesion less than 1 cm or classified as too small to characterize, or any incidental cystic renal lesion characterized as simple-appearing, is likely benign. No follow-up imaging is recommended for these lesions per consensus recommendations based on imaging criteria.
--- NOTE | 2021-02-23 19:44 | ECG_ITS ---
APPROVED REPORT Exam: Resting ECG HR:102 bpm ECG Measurements Heart Rate 102 AXES OH 120 P 35 QRSd 72 QRS -27 QT 328 T 64 QTc 427 Conclusion Sinus tachycardia with frequent premature ventricular complexes in a pattern of bigeminy Nonspecific ST and T wave abnormality Abnormal ECG Electronically signed by : Nick Espinoza MD 02/24/2021 09:17:11
[2021-02-23 20:01] LABS: Basophils # 0.1 K/mm3 (0-0.2); Hemoglobin 15.4 g/dL (14.1-18.0); Lymphocytes # 1.5 K/mm3 (0.7-4.5); Lymphocytes % 25.1 % (10-50); Mean Corpuscular HGB Conc 33.5 g/dL (31.8-35.4); Mean Corpuscular Hemoglobin 32.4 pg (27.0-31.2); Mean Corpuscular Volume 96.7 fl (80-94); Mean Platelet Volume 9.6 fl (7.4-10.4); Monocytes # 0.5 K/mm3 (0.1-1.0); Monocytes % 7.6 % (1.7-9.3); Neutrophils % 66.3 % (37.0-80.0); Platelet Count 200 K/mm3 (142-424); Red Blood Count 4.76 M/mm3 (4.60-6.20); Red Cell Distribution Width 13.8 % (11.5-17.5)
[2021-02-23 20:20] LABS: Alanine Aminotransferase 71 U/L (12-78); Albumin Level 3.7 g/dl (3.5-5.0); Alkaline Phosphatase 56 U/L (38-126); Anion Gap 11.5 mEq/L (5-15); Aspartate Amino Transferase 110 U/L (17-59); Bilirubin,Total 0.5 mg/dl (0.2-1.3); Blood Urea Nitrogen 24 mg/dl (9-20); Calcium 8.5 mg/dl (8.4-10.2); Carbon Dioxide 29 mmol/L (22.0-30.0); Chloride 98 mmol/L (98-107); Creatinine Clearance Estimated 61 mL/min (50-200); Estimated Glomerular Filt Rate 43 ml/min (>60); GFR (African American) 52 ML/MIN (>60); Globulin 3.6 g/dL (1.3-3.2); Glucose 108 mg/dl (74-100); Potassium 4.5 mmoL/L (3.5-5.1); Sodium 134 mmol/L (136-145); Total Protein,Serum 7.3 g/dl (6.3-8.2)
[2021-02-23 20:25] LABS: Erythrocyte Sedimentation Rate 63 mm/hr (0-20)
[2021-02-23 20:26] LABS: C-Reactive Protein 31.4 mg/L (0-4)
[2021-02-23 20:36] LABS: Troponin I 0.02 ng/ml (0.00-0.034)
[2021-02-23 20:40] LABS: Coronavirus 19, PCR Detected (NotDetected)
[2021-02-23 20:41] LABS: Procalcitonin 0.139 ng/mL (0.0-2.0)
--- NOTE | 2021-02-23 21:06 | HMH.EDSOB ---
ED Disposition Clinical Impression: Acute COVID-19, Acute respiratory failure due to COVID-19 Disposition: Admitted As Inpatient Condition on Discharge: Good Referrals: Nick Espinoza MD [Primary Care Provider] - - Critical Care Critical Care Time: No Attestation: On 02/23/21, the high probability of a clinically significant, sudden or life threatening deterioration of the following system(s) required my full and direct attention, intervention and personal management. The time I documented below is in addition to time spent performing reported procedures but includes the following listed in this critical care notation. Medical Decision Making - Medical Records Medical records reviewed: Yes: I reviewed the patient's medical records. - [place] Inquiry Pt receiving controlled substance: No Vital Signs: 02/23/21 19:31 Temperature 98.5 F Temperature Source Oral Pulse Rate [Right] 54 L Respiratory Rate 22 Blood Pressure [Right Arm] 153/70 H Blood Pressure Mean [Right Arm] 97 02 Sat by Pulse Oximetry 84 L Oxygen Delivery Method Room Air - Lab Data Lab results reviewed: Yes: I reviewed the patient's lab results. Lab Results 02/23/21 19:15: SARS-CoV-2 (PCR) Detected A, Influenza A Untype (PCR) Not detected, Influenza Type B (PCR) Not detected 02/23/21 19:23: Specimen Source Left radial, O2 % 5 lpm, ABG pH 7.50 H, ABG pCO2 28.4 L, ABG pO2 56.5 L, ABG HCO3 21.6 L, ABG Total CO2 22.5 L, ABG O2 Saturation 91, ABG Base Excess -1.6, Dk Test Accecptable 02/23/21 19:50: WBC 6.0, RBC 4.76, Hgb 15.4, Hct 46.0, MCV 96.7 H, MCH 32.4 H, MCHC 33.5, RDW 13.8, Plt Count 200, MPV 9.6, Neut % (Auto) 66.3, Lymph % (Auto) 25.1, Morrison % (Auto) 7.6, Eos % (Auto) 0.0 L, Baso % (Auto) 1.0, Neut # (Auto) 4.0, Lymph # (Auto) 1.5, Morrison # (Auto) 0.5, Eos # (Auto) 0.0, Baso # (Auto) 0.1, ESR 63 H 02/23/21 19:50: Sodium 134 L, Potassium 4.5, Chloride 98, Carbon Dioxide 29, Anion Gap 11.5, BUN 24 H, Creatinine 1.60 H, Estimated Creat Clear 61, Estimated GFR 43 L, Est GFR ( Amer) 52 L, Glucose 108 H, Calcium 8.5, Total Bilirubin 0.5, AST 110 H, ALT 71, Alkaline Phosphatase 56, Troponin I 0.02, C-Reactive Protein 31.4 H, Total Protein 7.3, Albumin 3.7, Globulin 3.6 H, Albumin/Globulin Ratio 1.0 L, Procalcitonin 0.139 Result diagrams: 02/23/21 19:50 02/23/21 19:50 Orders (Tests/Meds): ED MEDICATIONS Discontinued Medications Generic Name Dose Route Start Last Admin Trade Name Freq PRN Reason Stop Dose Admin Dexamethasone Sodium Phosphate 10 mg 02/23/21 19:52 02/23/21 19:56 Dexamethasone 4mg/Ml 5ml Mdv IV 02/23/21 19:53 10 mg ONCE ONE Administration Sodium Chloride 1,000 mls @ 999 mls/hr 02/23/21 20:00 02/23/21 19:56 Sod Chlor 0.9% 1000ml Bag IV 02/23/21 21:00 999 mls/hr .Q1H1M CINDY Administration Iopamidol 70 ml 02/23/21 21:44 02/23/21 21:46 Iopamidol-370 (76%);100ml Bottle IV 02/23/21 21:45 70 ml ONCE ONE Administration Sodium Chloride 50 ml 02/23/21 21:44 02/23/21 21:46 0.9 % Sodium Chloride 50 Ml Vial IV 02/23/21 21:45 50 ml ONCE ONE Administration Sodium Chloride 10 ml 02/23/21 21:44 02/23/21 21:46 Sodium Chloride 0.9% 10ml Syr (Rad Only) IV 02/23/21 21:45 10 ml ONCE ONE Administration ORDERS Category Date Time Status XR chest portable Stat Exams 02/23/21 19:23 Taken Troponin I Q3H Lab 02/23/21 22:25 Received Troponin I Q3H Lab 02/24/21 01:45 Ordered - Radiology Data #1 Image(s): Chest Image Reviewed: Yes I reviewed the patient's radiology image Preliminary Findings: Abnormal (positive inflitrates ) - CT Data CT Scan: Chest Time Received: 23:[address] Reviewed: Yes: I have viewed the radiologist's interpretation Preliminary Findings: Abnormal - ECG Data Tracing #1 Normal Sinus Rhythm: Yes Arrhythmias present: bigeminy Ischemic changes: non-specific ST-T wave changes - Physician Consults Physician Consulted: jonathan Reason -: Admi
[2021-02-23 22:53] LABS: Troponin I 0.02 ng/ml (0.00-0.034)
[2021-02-23 22:56] VITALS: BP 119/54; PULSE 65; RESP 14; O2SAT 92
--- NOTE | 2021-02-23 23:00 | PC.NURSE ---
alma on phone with dr castillo
[2021-02-23 23:25] LABS: Alanine Aminotransferase 65 U/L (12-78); Albumin Level 3.3 g/dl (3.5-5.0); Alkaline Phosphatase 54 U/L (38-126); Anion Gap 8.8 mEq/L (5-15); Aspartate Amino Transferase 99 U/L (17-59); Bilirubin,Total 0.5 mg/dl (0.2-1.3); Blood Urea Nitrogen 22 mg/dl (9-20); Carbon Dioxide 27 mmol/L (22.0-30.0); Chloride 100 mmol/L (98-107); Creatinine Clearance Estimated 70 mL/min (50-200); Estimated Glomerular Filt Rate 50 ml/min (>60); GFR (African American) 61 ML/MIN (>60); Globulin 3.4 g/dL (1.3-3.2); Glucose 121 mg/dl (74-100); Potassium 4.8 mmoL/L (3.5-5.1); Sodium 131 mmol/L (136-145); Total Protein,Serum 6.7 g/dl (6.3-8.2)
[2021-02-24 00:15] VITALS: BP 131/74; PULSE 60; RESP 16; TEMP 36.9; O2SAT 94
[2021-02-24 00:30] VITALS: O2SAT 93
[2021-02-24 00:38] VITALS: BP 118/64; PULSE 83; RESP 36; TEMP 36.7; O2SAT 93; BMI 30.4
[2021-02-24 01:00] VITALS: O2SAT 93
--- NOTE | 2021-02-24 01:09 | PC.NURSE ---
pt arrived to unit at 0030
[2021-02-24 04:00] VITALS: BP 112/66; PULSE 67; RESP 24; TEMP 36.4; O2SAT 92
[2021-02-24 05:25] VITALS: BMI 30.2
[2021-02-24 06:16] LABS: Basophils % 0.5 % (0.1-2.0); Eosinophils % 0.1 % (0.1-12.0); Hematocrit 44.5 % (42.0-52.0); Hemoglobin 14.4 g/dL (14.1-18.0); Lymphocytes % 20.3 % (10-50); Mean Corpuscular HGB Conc 32.5 g/dL (31.8-35.4); Mean Corpuscular Hemoglobin 31.7 pg (27.0-31.2); Mean Corpuscular Volume 97.7 fl (80-94); Mean Platelet Volume 9.5 fl (7.4-10.4); Monocytes # 0.3 K/mm3 (0.1-1.0); Monocytes % 5.7 % (1.7-9.3); Neutrophils # 3.7 K/mm3 (1.8-7.8); Neutrophils % 73.5 % (37.0-80.0); Platelet Count 195 K/mm3 (142-424); Red Blood Count 4.55 M/mm3 (4.60-6.20); Red Cell Distribution Width 13.7 % (11.5-17.5)
[2021-02-24 07:07] LABS: Chloride 102 mmol/L (98-107)
[2021-02-24 07:08] LABS: Potassium 4.6 mmoL/L (3.5-5.1); Sodium 136 mmol/L (136-145)
[2021-02-24 07:11] LABS: Anion Gap 12.6 mEq/L (5-15); Blood Urea Nitrogen 20 mg/dl (9-20); Carbon Dioxide 26 mmol/L (22.0-30.0); Creatinine Clearance Estimated 80 mL/min (50-200); Estimated Glomerular Filt Rate 60 ml/min (>60); GFR (African American) 73 ML/MIN (>60); Glucose 202 mg/dl (74-100); Magnesium 1.9 mg/dl (1.6-2.3)
--- NOTE | 2021-02-24 08:47 | HMH.HPDC ---
General - General Admission date:: 02/24/21 Discharge date: 02/24/21 *Admission Date: 02/23/21 *Chief complaint: Cough, shortness of air *History of present illness: 70-year-old white male, vaccinated for COVID-19, who has been feeling well until last week. He went on a fishing trip to [place] and because of travel requirements had a PCR test done a week and a half ago which was negative. He proceeded to [place] and felt fine but while in [place] he had to have a rapid test done for [employer] government requirements and after 3 days found out this was positive as he was returning from [place] from his fishing trip. He felt fine over the past couple of days but yesterday morning began to have shortness of air and cough, came to the emergency department. Had oxygen requirement of 85%, improved with 2 L nasal cannula up to normal but was admitted overnight for further observation. [facility] History I have reviewed the patient's past medical history: Yes Medical History: Reports:: Coronary Artery Disease, Hyperlipidemia, Hypertension Denies:: Cancer, Diabetes Mellitus Type 1, Diabetes Mellitus Type 2, MRSA *Have you ever received a pneumonia vaccine?: No *Have you received a flu vaccine this season?: No Laterality Cases: Bilateral: ACL Repair Other Surgeries: Yes: Cardiac Catheterization, Coronary Stent Amputation: No Fractures: No - *Social History Smoking Status: Former smoker Tobacco Type: cigarettes Alcohol Intake: never Substance Use Type: denies use *Occupational Status:: retired Housing: house Household Members: spouse *Travel in the last 8 weeks: Inside the [facility] Family Hx:: Coronary Artery Disease, Heart Attack, Hyperlipidemia, Hypertension Review of Systems - Review of Systems Review of systems:: pertinent systems reviewed and negative unless documented below - *Neurologic Denies localized weakness, Denies headache(s), Denies seizure-like activity Exam Vital signs and Labs for Last 24 Hours: Temp Pulse Resp BP Pulse Ox 97.5 F L 67 24 112/66 92 L 02/24/21 04:00 02/24/21 04:00 02/24/21 04:00 02/24/21 04:00 02/24/21 04:00 Laboratory Results - last 24 hr 02/23/21 19:15: SARS-CoV-2 (PCR) Detected A, Influenza A Untype (PCR) Not detected, Influenza Type B (PCR) Not detected 02/23/21 19:23: Specimen Source Left radial, O2 % 5 lpm, ABG pH 7.50 H, ABG pCO2 28.4 L, ABG pO2 56.5 L, ABG HCO3 21.6 L, ABG Total CO2 22.5 L, ABG O2 Saturation 91, ABG Base Excess -1.6, Dk Test Accecptable 02/23/21 19:50: WBC 6.0, RBC 4.76, Hgb 15.4, Hct 46.0, MCV 96.7 H, MCH 32.4 H, MCHC 33.5, RDW 13.8, Plt Count 200, MPV 9.6, Neut % (Auto) 66.3, Lymph % (Auto) 25.1, Drew % (Auto) 7.6, Eos % (Auto) 0.0 L, Baso % (Auto) 1.0, Neut # (Auto) 4.0, Lymph # (Auto) 1.5, Drew # (Auto) 0.5, Eos # (Auto) 0.0, Baso # (Auto) 0.1, ESR 63 H 02/23/21 19:50: Sodium 134 L, Potassium 4.5, Chloride 98, Carbon Dioxide 29, Anion Gap 11.5, BUN 24 H, Creatinine 1.60 H, Estimated Creat Clear 61, Estimated GFR 43 L, Est GFR ( Amer) 52 L, Glucose 108 H, Calcium 8.5, Total Bilirubin 0.5, AST 110 H, ALT 71, Alkaline Phosphatase 56, Troponin I 0.02, C-Reactive Protein 31.4 H, Total Protein 7.3, Albumin 3.7, Globulin 3.6 H, Albumin/Globulin Ratio 1.0 L, Procalcitonin 0.139 02/23/21 22:25: Troponin I 0.02 02/23/21 22:25: Sodium 131 L, Potassium 4.8, Chloride 100, Carbon Dioxide 27, Anion Gap 8.8, BUN 22 H, Creatinine 1.40 H, Estimated Creat Clear 70, Estimated GFR 50 L, Est GFR ( Amer) 61, Glucose 121 H, Calcium 8.0 L, Total Bilirubin 0.5, AST 99 H, ALT 65, Alkaline Phosphatase 54, Total Protein 6.7, Albumin 3.3 L D, Globulin 3.4 H, Albumin/Globulin Ratio 1.0 L 02/24/21 05:25: WBC 5.0, RBC 4.55 L, Hgb 14.4, Hct 44.5, MCV 97.7 H, MCH 31.7 H, MCHC 32.5, RDW 13.7, Plt Count 195, MPV 9.5, Neut % (Auto) 73.5, Lymph % (Auto) 20.3, Drew % (Auto) 5.7, Eos % (Auto) 0.1, Baso % (Auto) 0.5, Neut # (Auto) 3.7, Lymph # (Auto) 1.0, Drew # (Auto) 0.3, Eos # (Auto) 0.0, Baso #
== END 2021-02-24 10:00 | disposition home or self-care (01) | DRG 177 ==
LOC: ER 23:09 → ICU 02-24 00:49
PROVIDERS: Admitting Provider Internal Medicine Adolescent Medicine; Emergency Provider Emergency Medicine; PCP Internal Medicine Adolescent Medicine; Visit Provider Internal Medicine Adolescent Medicine
DX: U07.1 COVID-19 (principal); J96.00 Acute respiratory failure, unspecified whether with hypoxia or hypercapnia; I25.10 Atherosclerotic heart disease of native coronary artery without angina pectoris; E78.5 Hyperlipidemia, unspecified; I10 Essential (primary) hypertension; Z95.5 Presence of coronary angioplasty implant and graft; Z87.891 Personal history of nicotine dependence
CPT/HCPCS: 36415; 71045; 71275; 80048; 80053; 82803; 83735; 84145; 84484; 85025; 85651; 86140; 93005; 94760; 94761; 96365; 96375; 99284; C9803; Q9967; U0003; U0005

== ENCOUNTER → 2021-03-25 11:49 | Outpatient (CLI) | payer MEDICARE, SELFPAY ==
--- NOTE | 2021-03-25 12:04 | XR_ITS ---
PROCEDURE: XR CHEST 2V CLINICAL HISTORY: DYSPNEA, S/P COVID LATE SEPT. COMPARISON: CR CXR CHEST(2 VIEWS-NOT PORTABLE) from 05/14/[address] ANGIO CHEST PE PROTOCOL from 02/23/2021 CR XR CHEST PORTABLE from 02/23/2021 FINDINGS: The cardiomediastinal silhouette and pulmonary vascularity are within normal limits. Bilateral areas of consolidation are present in both upper and lower lobes which appears worse in the right lower lobe and left upper lobe. No obvious effusion. No acute bony abnormalities. IMPRESSION: Worsening bilateral pneumonia Dictated by: Dk Hopkins MD 03/25/2021 15:27 Dk Hopkins MD in [place] 03/25/2021 15:27
[2021-03-25 12:32] LABS: Basophils # 0.1 K/mm3 (0-0.2); Basophils % 0.9 % (0.1-2.0); Eosinophils # 0.1 K/mm3 (0.0-0.4); Eosinophils % 1.1 % (0.1-12.0); Hematocrit 51.7 % (42.0-52.0); Hemoglobin 16.4 g/dL (14.1-18.0); Lymphocytes # 1.8 K/mm3 (0.7-4.5); Lymphocytes % 18.4 % (10-50); Mean Corpuscular HGB Conc 31.8 g/dL (31.8-35.4); Mean Corpuscular Hemoglobin 31.6 pg (27.0-31.2); Mean Corpuscular Volume 99.4 fl (80-94); Mean Platelet Volume 8.8 fl (7.4-10.4); Monocytes # 0.7 K/mm3 (0.1-1.0); Monocytes % 6.7 % (1.7-9.3); Neutrophils # 7.2 K/mm3 (1.8-7.8); Platelet Count 345 K/mm3 (142-424); Red Cell Distribution Width 14.6 % (11.5-17.5); White Blood Count 9.9 K/mm3 (4.8-10.8)
[2021-03-25 12:55] LABS: Alanine Aminotransferase 31 U/L (12-78); Albumin Level 3.4 g/dl (3.5-5.0); Albumin/Globulin Ratio 0.9 (1.1-1.8); Alkaline Phosphatase 124 U/L (38-126); Anion Gap 11.5 mEq/L (5-15); Aspartate Amino Transferase 35 U/L (17-59); Bilirubin,Total 0.5 mg/dl (0.2-1.3); Blood Urea Nitrogen 11 mg/dl (9-20); Calcium 9.3 mg/dl (8.4-10.2); Carbon Dioxide 30 mmol/L (22.0-30.0); Chloride 103 mmol/L (98-107); Estimated Glomerular Filt Rate 67 ml/min (>60); GFR (African American) 81 ML/MIN (>60); Globulin 3.8 g/dL (1.3-3.2); Glucose 97 mg/dl (74-100); Magnesium 1.7 mg/dl (1.6-2.3); Potassium 4.5 mmoL/L (3.5-5.1); Sodium 140 mmol/L (136-145); Total Protein,Serum 7.2 g/dl (6.3-8.2)
[2021-03-25 13:07] LABS: NT Pro Brain Natriuretic Pep. 1120 pg/mL (0-125); Troponin I < 0.01 ng/ml (0.00-0.034)
== END ==
PROVIDERS: Visit Provider Internal Medicine Adolescent Medicine
DX: U07.1 COVID-19 (principal); E11.9 Type 2 diabetes mellitus without complications
CPT/HCPCS: 36415; 71046; 80053; 83735; 83880; 84484; 85025

== ENCOUNTER 2021-03-28 19:30 | Inpatient (IN) | payer MEDICARE, SELFPAY ==
[2021-03-28] VITALS (14 sets, daily range): BP systolic 91–131; BP diastolic 45–63; PULSE 63–112; RESP 20–34; TEMP 36.6; O2SAT 46–95; BMI 26.2; BMI 26.6
--- NOTE | 2021-03-28 19:49 | ECG_ITS ---
APPROVED REPORT Exam: Resting ECG HR:119 bpm ECG Measurements Heart Rate 119 AXES HI 158 P 43 QRSd 70 QRS -27 QT 346 T 67 QTc 486 Conclusion Undetermined rhythm Marked ST abnormality, possible lateral subendocardial injury Abnormal ECG Electronically signed by : Nick Espinoza MD 03/29/2021 22:38:08
--- NOTE | 2021-03-28 19:55 | CT_ITS ---
PROCEDURE INFORMATION: Exam: CTA Chest With Contrast Exam date and time: 03/28/2021 7:55 PM Age: 70 years old Clinical indication: Patient HX: Shortness of breath, patient had covid 1 month ago, on 5lpm of o2 at home. ; Additional info: SOA, 1mn out from covid, 5lpm nc o2 at home TECHNIQUE: Imaging protocol: Computed tomographic angiography of the chest with contrast. 3D rendering (Not supervised by radiologist): MIP and/or 3D reconstructed images were created by the technologist. Radiation optimization: All CT scans at this facility use at least one of these dose optimization techniques: automated exposure control; mA and/or kV adjustment per patient size (includes targeted exams where dose is matched to clinical indication); or iterative reconstruction. Contrast material: ISOVUE 370; Contrast volume: 70 ml; Contrast route: INTRAVENOUS (IV); COMPARISON: CT ANGIO CHEST PE PROTOCOL 02/23/2021 9:35 PM FINDINGS: Pulmonary arteries: Small embolus in the anterior segment right upper lobe. Aorta: Unremarkable. No aortic aneurysm. No aortic dissection. Lungs: Extensive nearly confluent bilateral ground-glass infiltrate characteristic of COVID-19. Significant progression since comparison 02/23/2021. Atelectasis in the lung bases. Pleural spaces: Small left pleural effusion. No pneumothorax. No pleural effusion. Heart: Evidence of right heart strain. RV/LV ratio is 1.3. New finding since comparison. No cardiomegaly. No pericardial effusion. Lymph nodes: Unremarkable. No enlarged lymph nodes. Bones/joints: Unremarkable. No acute fracture. Soft tissues: Unremarkable. IMPRESSION: 1. Extensive nearly confluent ground-glass infiltrates characteristic of COVID-19. Significant interval worsening since comparison 02/23/2021. 2. Small embolus in the anterior segment right upper lobe pulmonary artery. 3. Right heart strain with RV/LV ratio 1.3, significant change since comparison 02/23/2021 when it was 0.8. 4. Small left pleural effusion.
[2021-03-28 19:56] LABS: ABG HCO3 20.3 mmhg (22.0-26.0); ABG Oxygen Saturation 94 % (90-100); ABG PCO2 31.5 mmhg (35.0-45.0); ABG PH 7.43 mmol/L (7.35-7.45); ABG PO2 68.5 mmhg (80-100); ABG TCO2 21.3 mmhg (23-27); Allen's Test ACCEPTABLE; Oxygen NRB %; Source R RADIAL
--- NOTE | 2021-03-28 19:58 | XR_ITS ---
PROCEDURE INFORMATION: Exam: XR Chest Exam date and time: 03/28/2021 7:58 PM Age: 70 years old Clinical indication: Shortness of breath; Additional info: SOA, covid+ 1 mn ago, 5lpm o2 at home TECHNIQUE: Imaging protocol: XR of the chest. Views: 1 view. COMPARISON: CR XR CHEST 2V 03/25/2021 12:10 PM FINDINGS: Lungs: Bilateral peripheral ground-glass interstitial infiltrates, characteristic of COVID-19. Similar appearance to comparison 03/25/2021. Pleural spaces: Unremarkable. No pleural effusion. No pneumothorax. Heart/Mediastinum: Unremarkable. No cardiomegaly. Bones/joints: Unremarkable. IMPRESSION: Bilateral peripheral ground-glass interstitial infiltrates, characteristic of COVID-19. Similar appearance to comparison 03/25/2021.
[2021-03-28 20:14] LABS: Basophils # 0.2 K/mm3 (0-0.2); Basophils % 1.2 % (0.1-2.0); Eosinophils # 0.1 K/mm3 (0.0-0.4); Eosinophils % 0.8 % (0.1-12.0); Hematocrit 55.1 % (42.0-52.0); Hemoglobin 17.1 g/dL (14.1-18.0); Lymphocytes # 2.3 K/mm3 (0.7-4.5); Lymphocytes % 17.6 % (10-50); Mean Corpuscular Hemoglobin 31.5 pg (27.0-31.2); Mean Corpuscular Volume 101.8 fl (80-94); Monocytes # 0.9 K/mm3 (0.1-1.0); Monocytes % 6.9 % (1.7-9.3); Neutrophils # 9.7 K/mm3 (1.8-7.8); Neutrophils % 73.5 % (37.0-80.0); Platelet Count 432 K/mm3 (142-424); Red Blood Count 5.41 M/mm3 (4.60-6.20); Red Cell Distribution Width 14.6 % (11.5-17.5); White Blood Count 13.2 K/mm3 (4.8-10.8)
[2021-03-28 20:17] LABS: Chloride 102 mmol/L (98-107); Potassium 4.5 mmoL/L (3.5-5.1); Sodium 142 mmol/L (136-145)
--- NOTE | 2021-03-28 20:17 | HMH.EDSOB ---
ED Disposition Clinical Impression: Acute respiratory failure due to COVID-19, Elevated brain natriuretic peptide (BNP) level Pulmonary embolism Qualifiers: Pulmonary embolism type: unspecified Chronicity: acute Acute cor pulmonale presence: with acute cor pulmonale Qualified Code(s): I26.09 - Other pulmonary embolism with acute cor pulmonale Disposition: Admitted As Inpatient Condition on Discharge: Serious - Critical Care Critical Care Time: No Attestation: On 03/28/21, the high probability of a clinically significant, sudden or life threatening deterioration of the following system(s) required my full and direct attention, intervention and personal management. The time I documented below is in addition to time spent performing reported procedures but includes the following listed in this critical care notation. Medical Decision Making - Medical Records Medical records reviewed: Yes: I reviewed the patient's medical records. - [place] Inquiry Pt receiving controlled substance: No Vital Signs: 03/28/21 19:32 03/28/21 21:04 03/28/21 21:16 Pulse Rate 103 H 105 H Pulse Rate [Right] 112 H Respiratory Rate 28 H 28 H 30 H Blood Pressure 105/46 L 101/45 L Blood Pressure [Right Arm] 131/51 L Blood Pressure Mean [Right Arm] 77 02 Sat by Pulse Oximetry 46 L 91 L 95 Oxygen Delivery Method Room Air Non-Rebreather Non-Rebreather - Lab Data Lab results reviewed: Yes: I reviewed the patient's lab results. Lab Results 03/28/21 19:40: WBC 13.2 H, RBC 5.41, Hgb 17.1, Hct 55.1 H, MCV 101.8 H, MCH 31.5 H, MCHC 31.0 L, RDW 14.6, Plt Count 432 H D, MPV 9.0, Neut % (Auto) 73.5, Lymph % (Auto) 17.6, [place] % (Auto) 6.9, Eos % (Auto) 0.8, Baso % (Auto) 1.2, Neut # (Auto) 9.7 H, Lymph # (Auto) 2.3, [place] # (Auto) 0.9, Eos # (Auto) 0.1, Baso # (Auto) 0.2 03/28/21 19:40: Sodium 142, Potassium 4.5, Chloride 102, Carbon Dioxide 26, Anion Gap 18.5 H, BUN 14, Creatinine 1.40 H, Estimated Creat Clear 60, Estimated GFR 50 L, Est GFR ( Amer) 61, Glucose 224 H, Calcium 9.3, Magnesium 1.7, Total Bilirubin 0.8, AST 57, ALT 47, Alkaline Phosphatase 147 H, Troponin I 0.07 H, Total Protein 7.8, Albumin 3.8, Globulin 4.0 H, Albumin/Globulin Ratio 1.0 L 03/28/21 19:40: Lactate 5.9 H 03/28/21 19:40: C-Reactive Protein 132.7 H, NT-Pro-B Natriuret Pep 4790 H 03/28/21 19:40: ESR 6 03/28/21 19:40: Procalcitonin 0.160 03/28/21 19:40: Total Creatine Kinase 38 L 03/28/21 19:53: Specimen Source R radial, O2 % Nrb, ABG pH 7.43, ABG pCO2 31.5 L, ABG pO2 68.5 L, ABG HCO3 20.3 L, ABG Total CO2 21.3 L, ABG O2 Saturation 94, ABG Base Excess -4.0 L, Dk Test Acceptable Result diagrams: 03/28/21 19:40 03/28/21 19:40 Orders (Tests/Meds): ED MEDICATIONS Generic Name Dose Route Start Last Admin Trade Name Yi PRN Reason Stop Dose Admin Enoxaparin Sodium 85 mg 03/28/21 21:30 03/28/21 21:33 Enoxaparin 100mg/Ml Syringe 1 mg/kg (85 mg) 04/27/21 21:29 85 mg SQ Administration Q12H CINDY Sodium Chloride 1,000 mls @ 999 mls/hr 03/28/21 20:30 03/28/21 20:19 Sod Chlor 0.9% 1000ml Bag IV 03/28/21 21:30 999 mls/hr .Q1H1M CINDY Administration Sodium Chloride 2,530 mls @ 1,265 mls/hr 03/28/21 21:06 Sod Chlor 0.9% 1000ml Bag 30 ml/kg infuse over 2 hr (2530 ml) 03/28/21 23:05 IV .Q2H ONE Rivaroxaban 15 mg 03/28/21 21:27 03/28/21 21:40 Rivaroxaban 15mg Tablet PO 04/27/21 21:26 15 mg BIDWMEAL CINDY Administration Discontinued Medications Generic Name Dose Route Start Last Admin Trade Name Yi PRN Reason Stop Dose Admin Iopamidol 70 ml 03/28/21 20:59 03/28/21 21:00 Iopamidol-370 (76%);100ml Bottle IV 03/28/21 21:00 70 ml ONCE ONE Administration Ketorolac Tromethamine 30 mg 03/28/21 20:18 03/28/21 20:19 Ketorolac 30mg/Ml Vial IV 03/28/21 20:19 30 mg ONCE ONE Administration Methylprednisolone Sodium Succinate 125 mg 03/28/21 20:18 03/28/21 20:19 Methylprednisolone Sod Succ 125mg
[2021-03-28 20:19] LABS: Blood Urea Nitrogen 14 mg/dl (9-20); Creatinine Clearance Estimated 60 mL/min (50-200); Estimated Glomerular Filt Rate 50 ml/min (>60); GFR (African American) 61 ML/MIN (>60)
[2021-03-28 20:20] LABS: Alanine Aminotransferase 47 U/L (12-78); Albumin Level 3.8 g/dl (3.5-5.0); Alkaline Phosphatase 147 U/L (38-126); Anion Gap 18.5 mEq/L (5-15); Aspartate Amino Transferase 57 U/L (17-59); Bilirubin,Total 0.8 mg/dl (0.2-1.3); Calcium 9.3 mg/dl (8.4-10.2); Carbon Dioxide 26 mmol/L (22.0-30.0); Glucose 224 mg/dl (74-100); Magnesium 1.7 mg/dl (1.6-2.3); Total Protein,Serum 7.8 g/dl (6.3-8.2)
[2021-03-28 20:22] LABS: Lactic Acid 5.9 mmol/L (0.7-2.1)
--- NOTE | 2021-03-28 20:23 | PC.NURSE ---
alma notified of critical lactic of 5.9
[2021-03-28 20:26] LABS: C-Reactive Protein 132.7 mg/L (0-4)
[2021-03-28 20:30] LABS: NT Pro Brain Natriuretic Pep. 4790 pg/mL (0-125)
[2021-03-28 20:31] LABS: Coronavirus 19, PCR Not Detected (NotDetected); Influenza A, PCR Not Detected (NotDetected); Influenza B, PCR Not Detected (NotDetected)
[2021-03-28 20:32] LABS: Troponin I 0.07 ng/ml (0.00-0.034)
[2021-03-28 20:44] LABS: Erythrocyte Sedimentation Rate 6 mm/hr (0-20)
--- NOTE | 2021-03-28 21:05 | PC.NURSE ---
called meter and regulator shop supervisor to verify covid restrictions when pt is 32 days out from initial dx.
--- NOTE | 2021-03-28 21:20 | PC.NURSE ---
Dr. Woo s/w Dr. Saavedra regarding pt. Dr. Saavedra requests pt to have lovenox 1mg/kg and Xarelto 15mg PO BID to start now.
[2021-03-28 21:24] LABS: Creatine Kinase 38 U/L (55-170)
--- NOTE | 2021-03-28 21:31 | PC.NURSE ---
Acute admission, Dr. Woo to Dr. Espinoza for Covid, Respiratory failure, PE. gate supervisor notified on the need for bed assignment.
--- NOTE | 2021-03-28 21:31 | PC.NURSE ---
pt setup password of [id number]
--- NOTE | 2021-03-28 21:34 | PC.NURSE ---
RESPIRATORY THERAPIST AT BEDSIDE. SWITCHING NRB TO VAPO-THERM
--- NOTE | 2021-03-28 21:49 | PC.NURSE ---
Lab called, stated that pt's rapid covid swab had failed, they will re-run 1 more time.
--- NOTE | 2021-03-28 22:20 | PC.NURSE ---
Lab notified this RN that pt's covid swab failed for the 3rd time. They a re requesting new sample. Pt was re-swabbed and submitted to Lab. supervisor asbestos removal notified about the above info and she states it is ok the call report and send pt up to the floor as pt will be in covid restrictions until cleared by IC.
[2021-03-28 23:19] LABS: Reflex Lactic Add Lactic Reflex
--- NOTE | 2021-03-28 23:24 | PC.NURSE ---
patient up to floor via stretcher @ this time
[2021-03-28 23:34] LABS: Lactic Acid Follow Up (RFLX 1) 1.8 mmol/L (0.7-2.1)
[2021-03-28 23:47] LABS: Troponin I 0.15 ng/ml (0.00-0.034)
[2021-03-29] VITALS (11 sets, daily range): BP systolic 101–156; BP diastolic 54–79; PULSE 80–121; RESP 24–36; TEMP 36.4–36.9; O2SAT 30–91; BMI 26.5
[2021-03-29 02:28] LABS: Troponin I 0.11 ng/ml (0.00-0.034)
--- NOTE | 2021-03-29 04:59 | PC.NURSE ---
Patient had an episode of oxygen saturation dropping to the 70-80%s, when getting up out of bed. Patient recovers with non-rebreather over top of his vapotherm set at 30L/100%. Patient was educated on proning while awake and asleep as tolerated. Patient has voiced no complaints to this RN thus far in the shift.
--- NOTE | 2021-03-29 06:55 | HMH.HP ---
*Admission Date: 03/28/21 *Chief complaint: SOA *History of present illness: 70-year-old male with multiple comorbidities including CAD, CKD, HTN, HLD, and recent covid-19 infection. Patient was diagnosed with COVID-19 on 02/23/2021. Has been treated as an outpatient by our office with supplemental oxygen at home over the past month. Gradually weaning his oxygen level until the past few days. Developed worsening shortness of breath. encouraged him to come to the ER for further assessment. Had gone from approximately 4 L oxygen up to 8 to 10 L with saturations no better than 90% at home. On arrival to the ER, patient was found to be alert but hypoxemic. Initial labs concerning for mild elevation in troponin (NSTEMI), MARLIN, mild leukocytosis, and elevated CRP. CTA performed showing small pulmonary emboli. Patient admitted for medical management of conditions. Worsening bilateral groundglass opacification on chest imaging. Initiated on Vapotherm 30 L, 100%, Lovenox, and steroids. On assessment this morning, patient appears tachypneic but comfortable. Able to complete sentences without being dyspneic on interview. Afebrile. Hemodynamically stable. Denies nausea, vomiting, chest pain, confusion [facility] History I have reviewed the patient's past medical history: Yes Medical History: Reports:: Coronary Artery Disease, Hyperlipidemia, Hypertension Denies:: Cancer, Diabetes Mellitus Type 1, Diabetes Mellitus Type 2, MRSA *Have you ever received a pneumonia vaccine?: Yes *Have you received a flu vaccine this season?: No Laterality Cases: Bilateral: ACL Repair Other Surgeries: Yes: Cardiac Catheterization, Colonoscopy, Coronary Stent Amputation: No Fractures: No - *Social History Smoking Status: Former smoker Tobacco Type: cigarettes #Yrs smoked (if former smoker): 45 Alcohol Intake: current Alcohol Intake Frequency:: holidays/special occasions only Substance Use Type: denies use *Occupational Status:: retired Housing: house Household Members: spouse *Travel in the last 8 weeks: Outside the [facility] Family Hx:: Heart Attack, Hyperlipidemia, Hypertension Review of Systems - Review of Systems Review of systems:: pertinent systems reviewed and negative unless documented below (14 point review of systems performed, pertinent positives and negatives as per HPI) - *Neurologic Denies headache(s), Denies seizure-like activity Meds Home Medications Medication Instructions Recorded Confirmed Type Atorvastatin Calcium [Lipitor 80mg 80 mg PO HS 06/13/17 03/29/21 History Tab] clopidogrel 75 mg tablet 75 mg PO DAILY 12/07/18 03/29/21 History allopurinol 100 mg tablet 100 mg PO DAILY 04/26/19 03/29/21 History bisoprolol fumarate 10 mg tablet 5 mg PO DAILY tab 10/25/19 03/29/21 History aspirin 81 mg tablet,delayed 81 mg PO DAILY tab 04/24/20 03/29/21 History release Cholecalciferol (Vitamin D3) 1 cap PO WEEKLY 03/29/21 03/29/21 History [Vitamin D3 50,000 unit Cap] lisinopriL [Zestril 5mg 5 mg PO DAILY 03/29/21 03/29/21 History Tablet] Allergies Allergy/AdvReac Type Severity Reaction Status Date / Time No Known Allergies Allergy Verified 02/24/21 01:38 Exam Vital signs and Labs for Last 24 Hours: Temp Pulse Resp BP Pulse Ox 97.7 F 100 H 32 H 101/54 L 90 L 03/29/21 00:00 03/29/21 06:00 03/29/21 00:00 03/29/21 00:00 03/29/21 00:00 Laboratory Results - last 24 hr 03/28/21 19:40: WBC 13.2 H, RBC 5.41, Hgb 17.1, Hct 55.1 H, MCV 101.8 H, MCH 31.5 H, MCHC 31.0 L, RDW 14.6, Plt Count 432 H D, MPV 9.0, Neut % (Auto) 73.5, Lymph % (Auto) 17.6, [place] % (Auto) 6.9, Eos % (Auto) 0.8, Baso % (Auto) 1.2, Neut # (Auto) 9.7 H, Lymph # (Auto) 2.3, [place] # (Auto) 0.9, Eos # (Auto) 0.1, Baso # (Auto) 0.2 03/28/21 19:40: Sodium 142, Potassium 4.5, Chloride 102, Carbon Dioxide 26, Anion Gap 18.5 H, BUN 14, Creatinine 1.40 H, Estimated Creat Clear 60, Estimated GFR 50 L, Est GFR ( Amer) 6
--- NOTE | 2021-03-29 07:22 | HMH.PHAVTE ---
[facility] Pharmacy VTE Monitoring - Patient Demographics Admission date: 03/28/21 Report Date: 03/29/21 Time: 07:22 Allergies/Adverse Reactions: Patient Allergies No Known Allergies Allergy (Verified 02/24/21 01:38) Height: 1.78 m Weight: 84.368 kg Patient Problems: Current Active Problems Acute respiratory failure due to COVID-19 (Acute) Pulmonary embolism (Acute) Elevated brain natriuretic peptide (BNP) level (Acute) Acute hypoxemic respiratory failure (Acute) Post-acute sequelae of COVID-19 (PASC) (Acute) HHD (hypertensive heart disease) (Chronic) CAD (coronary artery disease) (Chronic) - VTE Risk Labs: VTE Related Lab Results Hgb 17.1 g/dL (14.1-18.0) 03/28/21 19:40 Hct 55.1 % (42.0-52.0) H 03/28/21 19:40 Plt Count 432 K/mm3 (142-424) H D 03/28/21 19:40 BUN 14 mg/dl (9-20) 03/28/21 19:40 Creatinine 1.40 mg/dl (0.66-1.25) H 03/28/21 19:40 Estimated Creat Clear 60 mL/min (50-200) 03/28/21 19:40 Was VTE Risk Assessment Performed: Yes VTE Score: 2 Clinical Trial Participant: No - Prophylaxis VTE Prophylaxis Ordered?: Yes Types of VTE Prophylaxis: TEDS Knee High, Pharmacological Pharmacologic Type: Other (XARELTO)
--- NOTE | 2021-03-29 07:27 | HMH.PHAINT ---
home medication list verified using list from Daniel
--- NOTE | 2021-03-29 07:30 | CA_ITS ---
APPROVED REPORT EXAM: Comprehensive 2D, Doppler, and color-flow Echocardiogram Fabric Worker: Angi Stone CRT Ht: 5 ft 10 in Wt: 186lbs BSA: 2.02 BP: 100/46 mmHg Indications: Shortness of Breath, Hyperlipidemia, Hypertension/HDD, CABG, Home O2, stent, vapotherm 2D Dimensions LVOT 1.98 cm (M/F) 1.5-2.5 LA Volume 66.50 mL LA Volume Index 32.90 mL/m2 (M/F) 16-34 M-Mode Dimensions RVDd 2.66 cm (0.9-2.6) LA Diam 4.06 cm (1.9-4.0) LVDd 5.22 cm (3.5-5.7) Ao Diam 4.24 cm (2.0-3.7) LVDs 3.91 cm (3.5-5.7) IVSd 1.73 cm (0.6-1.1) PWd 0.82 cm (0.6-1.1) EF (Teich) 49.30% FS 25.10% EDV (Teich) 130.70 mL TAPSE 1.70 (<1.7) ESV (Teich) 66.30 mL LV Diastology E Decel Time 173.00 (160-240 msec) E/A Ratio 1.18 MED E' 5.50 (< 7 cm/sec) MED A' 9.70 cm/s E'/MED E' Ratio 15.53 (>14) LAT E' 8.90 (<10 cm/sec) LAT A' 10.80 cm/s E/LAT E' Ratio 9.60 (>14) Aortic Valve AI PHT 504.00 ms AO Peak GR. 7.10 mmHg Mitral Valve MV A Velocity 73.00 (40-130 cm/s) E/A Ratio 1.18 MV Decel. Time 173.00 (160-240 ms) Pulmonary Valve PV Peak Velocity 159.00 (50-150 cm/s) Tricuspid Valve TR P. Velocity 418.00 cm/s RAP Estimate 10.00 mmHg RVSP 79.90 mmHg Left Ventricle Left atrium is mildly enlarged, left ventricle is normal size, mild concentric left ventricular hypertrophy, visually estimated ejection fraction approximately 45%, there is moderate hypokinesis involving mid to distal septum and anterior wall. Grade 1 diastolic dysfunction seen without tissue Doppler evidence of raise left atrial pressure. Right Ventricle Right atrium and right ventricle are normal size and contractility. Aortic Valve Aortic valve is minimally thickened and calcified without aortic stenosis or aortic insufficiency. Mitral Valve Mitral valve leaflets are minimally thickened, there is mild mitral regurgitation. Tricuspid Valve Tricuspid grossly normal, there is mild tricuspid regurgitation, tricuspid regurgitation jet velocity is inadequate for calculation of the right ventricular systolic pressure. Pulmonic Valve Pulmonic valve is poorly visualized. Great Vessels Aortic root is normal size. Inferior vena cava is not well visualized. Pericardium No significant pericardial effusion noted. Conclusion 1. Mildly enlarged left atrium, normal left ventricular size, mild concentric left ventricular hypertrophy, visually estimated ejection fraction 45% with segmental wall motion abnormality described above, grade 1 diastolic dysfunction seen without tissue Doppler evidence of raise left atrial pressure. 2. Mild mitral and tricuspid regurgitation. 3. No significant pericardial effusion noted 4. Inferior vena cava is not well visualized. Electronically signed by : Pio Mcdaniel MD 03/29/2021 13:53:02
[2021-03-29 07:41] LABS: Basophils # 0.1 K/mm3 (0-0.2); Basophils % 0.5 % (0.1-2.0); Eosinophils # 0.1 K/mm3 (0.0-0.4); Eosinophils % 0.6 % (0.1-12.0); Hematocrit 47.2 % (42.0-52.0); Lymphocytes # 1.3 K/mm3 (0.7-4.5); Lymphocytes % 12.3 % (10-50); Mean Corpuscular HGB Conc 31.6 g/dL (31.8-35.4); Mean Corpuscular Hemoglobin 31.6 pg (27.0-31.2); Mean Platelet Volume 9.1 fl (7.4-10.4); Monocytes # 0.3 K/mm3 (0.1-1.0); Monocytes % 2.9 % (1.7-9.3); Neutrophils # 8.7 K/mm3 (1.8-7.8); Neutrophils % 83.8 % (37.0-80.0); Platelet Count 318 K/mm3 (142-424); Red Blood Count 4.72 M/mm3 (4.60-6.20); Red Cell Distribution Width 14.6 % (11.5-17.5); White Blood Count 10.4 K/mm3 (4.8-10.8)
[2021-03-29 08:13] LABS: Anion Gap 11.6 mEq/L (5-15); Blood Urea Nitrogen 19 mg/dl (9-20); Calcium 8.3 mg/dl (8.4-10.2); Carbon Dioxide 25 mmol/L (22.0-30.0); Chloride 109 mmol/L (98-107); Creatinine Clearance Estimated 77 mL/min (50-200); Estimated Glomerular Filt Rate 67 ml/min (>60); GFR (African American) 81 ML/MIN (>60); Glucose 149 mg/dl (74-100); Magnesium 1.7 mg/dl (1.6-2.3); Potassium 4.6 mmoL/L (3.5-5.1); Sodium 141 mmol/L (136-145)
[2021-03-29 08:22] LABS: Hemoglobin 14.9 g/dL (14.1-18.0)
--- NOTE | 2021-03-29 09:56 | HMH.PULMCON ---
*Admission Date: 03/28/21 *Reason for consult:: Acute hypoxic respiratory failure *History of present illness: Mr. Pascual is a 70-year-old male vaccinated history of COVID-19 pneumonia recent discharge presented hospital with worsening respiratory distress needing high flow oxygen supplementation to maintain his saturations at desired level and pulmonary was called for further management. [facility] History Medical History: Reports:: Coronary Artery Disease, Hyperlipidemia, Hypertension Denies:: Cancer, Diabetes Mellitus Type 1, Diabetes Mellitus Type 2, MRSA *Have you ever received a pneumonia vaccine?: Yes *Have you received a flu vaccine this season?: No Laterality Cases: Bilateral: ACL Repair Other Surgeries: Yes: Cardiac Catheterization, Colonoscopy, Coronary Stent Amputation: No Fractures: No - *Social History Smoking Status: Former smoker Tobacco Type: cigarettes #Yrs smoked (if former smoker): 45 Alcohol Intake: current Alcohol Intake Frequency:: holidays/special occasions only Substance Use Type: denies use *Occupational Status:: retired Housing: house Household Members: spouse *Travel in the last 8 weeks: Outside the [facility] Family Hx:: Heart Attack, Hyperlipidemia, Hypertension ROS - Cons Reports anorexia, Reports body ache(s) - Eyes Denies blind spots - ENT Denies bleeding gums, Denies change in voice - Card Reports shortness of breath, Reports shortness of breath with activity, Reports lightheadedness, Denies chest pain - Resp Respiratory: Reports chest congestion, Reports cough, Reports non-productive cough, Reports dyspnea on exertion, Denies excessive phlegm production, Denies pain on inspiration, Denies pain with cough, Denies pain with breathing - GI Gastrointestingal: Denies: abdominal pain - Psych Denies lack of enjoyment, Denies thoughts of hurting/killing others, Denies thoughts of hurting/killing yourself Meds Home Medications Medication Instructions Recorded Confirmed Type Atorvastatin Calcium [Lipitor 80mg 80 mg PO HS 06/13/17 03/29/21 History Tab] clopidogrel 75 mg tablet 75 mg PO DAILY 12/07/18 03/29/21 History allopurinol 100 mg tablet 100 mg PO DAILY 04/26/19 03/29/21 History bisoprolol fumarate 10 mg tablet 5 mg PO DAILY tab 10/25/19 03/29/21 History aspirin 81 mg tablet,delayed 81 mg PO DAILY tab 04/24/20 03/29/21 History release Cholecalciferol (Vitamin D3) 1 cap PO WEEKLY 03/29/21 03/29/21 History [Vitamin D3 50,000 unit Cap] lisinopriL [Zestril 5mg 5 mg PO DAILY 03/29/21 03/29/21 History Tablet] Allergies Allergy/AdvReac Type Severity Reaction Status Date / Time No Known Allergies Allergy Verified 02/24/21 01:38 Exam - Constitutional Constitutional:: Present: no acute distress, comfortable - HENMT Exam HENMT: Present: normocephalic, atraumatic - Eye Exam Eyes:: Present: normal appearance both eyes and related structures - Neck Exam Neck:: Present: normal visual inspection - Respiratory Exam Respiratory:: Present: able to speak in complete sentences, respiratory distress, rales - Cardiovascular Exam Cardiac:: Present: S1, S2 - GI Exam GI:: Present: soft - Skin Exam Skin: Present: warm, no rash - Neurological Exam Neurological: Present: alert, awake, normal cognition - Extremities Exam Extremities: Present: no cyanosis, no clubbing, no edema - Psychiatric Exam Psychiatric: Present: normal affect Internal Medicine - CN: Reslt - Labs CBC & Chem 7: 03/29/21 07:28 03/29/21 07:28 Labs: Short CBC 03/28/21 03/29/21 Range/Units 19:40 07:28 WBC 13.2 H 10.4 (4.8-10.8) K/mm3 Hgb 17.1 14.9 D (14.1-18.0) g/dL Hct 55.1 H 47.2 (42.0-52.0) % Plt Count 432 H D 318 D (142-424) K/mm3 BMP 03/28/21 03/29/21 19:40 07:28 Sodium 142 141 Potassium 4.5 4.6 Chloride 102 109 H Carbon Dioxide 26 25 BUN 14 19 D Creatinine 1.40 H 1.10 D Glucose 224 H 149 H
--- NOTE | 2021-03-29 22:46 | XR_ITS ---
PROCEDURE INFORMATION: Exam: XR Chest Exam date and time: 03/29/2021 10:46 PM Age: 70 years old Clinical indication: Device placement; Ett placement (vent status); Additional info: PT intubated TECHNIQUE: Imaging protocol: XR of the chest. Views: 1 view. COMPARISON: CR XR CHEST PORTABLE 03/28/2021 8:30 PM FINDINGS: Tubes, catheters and devices: Endotracheal tube terminates in good position about 4 cm above the igor. Lungs: Moderate bilateral patchy airspace opacities seen compatible with pneumonia. Pleural spaces: Unremarkable. No pleural effusion. No pneumothorax. Heart/Mediastinum: Unremarkable. No cardiomegaly. Bones/joints: Unremarkable. IMPRESSION: Endotracheal tube terminates in good position about 4 cm above the igor. Moderate bilateral patchy airspace opacities seen compatible with pneumonia.
--- NOTE | 2021-03-29 22:56 | HMH.DCSUM ---
General - General Admission date:: 03/28/21 Discharge date: 03/29/21 HPI HPI: 70-year-old male with multiple comorbidities including CAD, CKD, HTN, HLD, and recent covid-19 infection. Patient was diagnosed with COVID-19 on 02/23/2021. Has been treated as an outpatient by our office with supplemental oxygen at home over the past month. Gradually weaning his oxygen level until the past few days. Developed worsening shortness of breath. encouraged him to come to the ER for further assessment. Had gone from approximately 4 L oxygen up to 8 to 10 L with saturations no better than 90% at home. On arrival to the ER, patient was found to be alert but hypoxemic. Initial labs concerning for mild elevation in troponin (NSTEMI), MARLIN, mild leukocytosis, and elevated CRP. CTA performed showing small pulmonary emboli. Patient admitted for medical management of conditions. Worsening bilateral groundglass opacification on chest imaging. Initiated on Vapotherm 30 L, 100%, Lovenox, and steroids. On assessment this morning, patient appears tachypneic but comfortable. Able to complete sentences without being dyspneic on interview. Afebrile. Hemodynamically stable. Denies nausea, vomiting, chest pain, confusion Hospital Course Hospital Course: 70 yo M with multiple comorbidities who presents with sequela of COVID-19. Symptoms and lab findings consistent with severe ARDS secondary to COVID-19. Pulmonary emboli and NSTEMI present on initial work-up in the ER. Admitted to medicine for respiratory failure. Family requested transfer, condition progressed through the course of the day necessitating intubation on the evening of transfer to facilitate transfer. Patient excepted only after intubated and placed on ventilator. Problems were addressed as follows: Sequela of COVID-19 Acute hypoxemic respiratory failure Bilateral pneumonia -Patient negative for Covid at this admission however positive 1 mo ago (02/23/2021) -Pulmonology consulted, appreciate their assistance with care -Treated with methylprednisolone 125 mg twice daily -Initiated on levofloxacin for broad pneumonia coverage pending cultures -DuoNebs every 6hrs -Vapotherm 100%, 30 L initially with gradual addition of nonrebreather and transition to intubation and ventilator at the request of excepting critical care physician at (Dr. Martinez) in order to stabilize for transfer. -Family requested transfer and requested proceeding with intubation to facilitate transfer. Pulmonary Emboli - initiated on Lovenox, bridge for 24hrs to Xarelto NSTEMI, type II supply/demand mismatch - ECHO obtained, formal reading pending to assess for right heart strain/cardiac function - Given elevated BNP, will diurese x1 today. No improvement in ventilation/oxygenation. MARLIN on CKD -Creatinine 1.4 on admission, baseline 1-1.1. Improved this morning on labs. -Continue to monitor daily Full code Cardiac dietAdmitted to medicine Stabilized prior to discharge/transfer to for further management. Objective Vital signs: Temp Pulse Resp BP Pulse Ox 97.6 F 121 H 24 118/76 87 L 03/29/21 20:00 03/29/21 20:00 03/29/21 20:00 03/29/21 20:00 03/29/21 20:00 Narrative: See exam from H&P Results Labs on day of discharge: Labs from last 24 hours 03/29/21 03/29/21 03/29/21 07:28 07:28 01:55 WBC 10.4 RBC 4.72 Hgb 14.9 D Hct 47.2 MCV 100.0 H MCH 31.6 H MCHC 31.6 L RDW 14.6 Plt Count 318 D MPV 9.1 Neut % (Auto) 83.8 H Lymph % (Auto) 12.3 [place] % (Auto) 2.9 Eos % (Auto) 0.6 Baso % (Auto) 0.5 Neut # (Auto) 8.7 H Lymph # (Auto) 1.3 [place] # (Auto) 0.3 Eos # (Auto) 0.1 Baso # (Auto) 0.1 Sodium 141 Potassium 4.6 Chloride 109 H Carbon Dioxide 25 Anion Gap 11.6 BUN 19 D Creatinine 1.10 D Estimated Creat Clear 77 Estimated GFR 67 Est GFR ( Amer) 81 D Glucose 149 H
[2021-03-29 22:59] LABS: ABG Base Excess -2.6 mmol/L (-2.4-2.3); ABG HCO3 22.6 mmhg (22.0-26.0); ABG Oxygen Saturation 96 % (90-100); ABG PCO2 39.4 mmhg (35.0-45.0); ABG PH 7.38 mmol/L (7.35-7.45); ABG PO2 82.8 mmhg (80-100); ABG TCO2 23.8 mmhg (23-27); Oxygen 100 %
--- NOTE | 2021-03-29 22:59 | HMH.RR ---
Acute Rapid Response Note - Subjective Date Responded: 03/29/21 Time Responded: 22:45 Provider Note: called to intubate pt as he has resp distress and pending transfer to - - Objective Findings: Vital Signs - Last 4 Hours Temperature 97.6 F 03/29/21 20:00 Temperature Source Oral 03/29/21 20:00 Pulse Rate 121 H 03/29/21 20:00 Respiratory Rate 24 03/29/21 20:00 Blood Pressure 118/76 03/29/21 20:00 Blood Pressure Mean 90 03/29/21 20:00 Blood Pressure Source Automatic Cuff 03/29/21 20:00 Blood Pressure Position Supine 03/29/21 15:36 02 Sat by Pulse Oximetry 87 L 03/29/21 20:00 Oxygen Delivery Method Vapotherm 03/29/21 20:00 Oxygen Flow Rate (LPM) 35 03/29/21 15:36 My Orders Category Date Time Status Chest XR -- portable [XR chest portable] Stat Exams 03/29/21 22:46 Taken Atorvastatin Calcium [Lipitor 40mg Tablet] Med 03/29/21 21:00 Active 80 mg PO HS ABG [Arterial Blood Gas] Stat RT 03/29/21 22:52 Received - Radiology Findings #1 Xray Reviewed: Chest Image Reviewed: Yes I reviewed the patient's radiology image ED XR Results: Abnormal (et tube ok) Rapid Response Exam - General General appearance: alert - Head Head exam: normocephalic - Eye Eye exam: Present: PERRL, EOMI - ENT ENT exam: Present: mucous membranes moist - Neck Neck exam: Present: trachea midline - Respiratory Respiratory exam: Present: respiratory distress, other (dec bs bilat ) - Cardiovascular Cardiovascular exam: Present: regular rate - Extremities Exam Extremities exam: Absent: calf tenderness - Neurological Exam Neurological exam: Present: alert, CN II-XII intact - Psychiatric Psychiatric exam: Present: normal affect - Skin Skin exam: Absent: rash RR Procedures/Assess/Plan - Bedside Intubation Time Out Performed: Yes Sedative: Versed Mg given: 10 Paralytic: Succinylcholine Mg given: 100 Laryngoscope: Brown Tube size: 7.5 Tube uncuffed: No Secured Depth: 22 Secured location: teeth Placement confirmation: visualized tube passing through cords, equal breath sounds bilaterally, confirmation by capnometry Patient tolerated procedure intubation: no complications Intubation Complications: none - Assessment and plan all Dx Assessment and Plan for all problems:: has acute resp failure and required intubation for transfer
[2021-03-29 23:00] LABS: Source Right Radial
--- NOTE | 2021-03-29 23:36 | PC.NURSE ---
PT WAS TRANSFERRED VIA STRETCHER PER [facility] TO DIFFERENT FACILITY @ [id number]
--- NOTE | 2021-03-29 23:52 | PC.NURSE ---
Late Entry: 2039 - Spoke to Hany with Transfer center regarding bed status for patient. At this time, Hany advised that the Attending Channel Program Manager at - Dr. Martinez - would not accept patient unless he was intubated. Hany stated he will hold the bed until pts PCP and the patient and his family make that decision. 2041 - Notified Dr. Mackey of bed status/Dr Martinez's request to have patient intubated. At this time, Dr. Mackey stated he would speak to patient's , and asked that this RN speak with the patient as well. 2044 - This RN (current Director Advertising) and the pts primary RN (Arianne, ESTER) spoke to patient and informed him of bed status for , as well as the Attending Pulmonologists request that patient be intubated prior to transfer. This RN informed him that Dr. Mackey was currently on the phone with his to update her. 2054 - Dr Mackey returned call and informed this RN that he did speak with pts , and that she requested he proceed with being intubated so that he could be transferred. This RN informed patient. Pt requesting that his be able to come in person to discuss this with him as he cannot make the decision without speaking to her first, and it is very difficult for him to speak to her over the phone d/t his oxygen mask and not being able to hear her. This RN gave approval for to visit. 2099 - Dr. Avila is aware of situation, requested that primary RN let him speak to the patient so that he could explain the process to the patient. After the patient spoke to Dr. Avila, he was undecided as to what he wanted to do, and he requested that we wait until his gets here. Dr. Mackey updated via phone. 2114 - Patient and wish to proceed with intubation and transfer. 2129 - Notified Dr. Mackey and pts primary RN notified Dr. Avila 2144 - Contacted [facility] to check flight status 2149 - spoke with [facility], stated they had a crew available, and that they were cleared to fly. Stated they would standby for transport at this facility. 2154 - Contacted Dr. Woo in the ED and requested that he come up and intubate patient. 2199 - Pt moved to 218 for closer monitoring and in preparation for intubation.
--- NOTE | 2021-03-30 00:03 | PC.NURSE ---
2304 - pt left with [facility] flight crew at this time. 2306 - Notified Dr. Mackey that patient was successfully intubated, and transferred at this time.
--- NOTE | 2021-03-30 02:34 | PC.NURSE ---
Late Entry: 03/29/21 @ 2225 - Dr Woo at bedside to intubate patient starting vital signs: 143/70, HR 106, RR 28 O2 sat 94% on NRB Vapotherm @ 40/100 Pt and informed of procedure by staff, verbalized understanding, escorted to waiting room. 2230 - Pt suctioned orally and preoxygenated via ambu bag at this time 2232 - 2mg IV Versed given per Dr Woo verbal order for RSI 2233 - 10mg IV Etomidate given for RSI 2234 - 2mg IV Versed given during RSI 2235 - 100mg IV Succ given during RSI 2235 - Pt successfully intubated by Dr. Woo with a 7.5 ET Tube, 21@ lip. + bilateral breath sounds auscultated by RT Cecille. Teresa, RT at beside providing ventilation via ambubag bag; + color change on CO2 detector. Radiology notified of STAT portable chest 2236 - MD confirmed proper ET tube placement via xray 2238 - ABG obtained 2240 - ABG results reported to Dr Woo and recommended vent settings obtained 2242 - Transfer center notified of patient status 2249 - Bed assignment obtained from 2255 - 2mg IV Versed given for agitation/biting of ET tube, verbal order per Dr. Woo 2257 - [facility] flight crew at bedside, report given and care handed off to them Staff present during RSI: Scooter, RN - Procurement Forester ESTER Acuña, RT Mimi, RT Dr. Chilo Isabel, RAD Estefani, RN
--- NOTE | 2021-03-30 03:01 | PC.NURSE ---
Late Entry - 03/29/212237 - pt left facility with [facility] 2239 - Notified Dr Mackey that pt has been transferred
== END 2021-03-29 23:38 | disposition home or self-care (01) | DRG 193 ==
LOC: ER 20:00 → 2ND 21:51
PROVIDERS: Emergency Medicine; Admitting Provider Family Medicine; Emergency Provider Emergency Medicine; PCP Internal Medicine Adolescent Medicine; Visit Provider Internal Medicine Adolescent Medicine
DX: J18.9 Pneumonia, unspecified organism (principal); J80 Acute respiratory distress syndrome; I21.A1 Myocardial infarction type 2; I26.99 Other pulmonary embolism without acute cor pulmonale; N17.9 Acute kidney failure, unspecified; U09.9 Post COVID-19 condition, unspecified; Z87.891 Personal history of nicotine dependence; N18.9 Chronic kidney disease, unspecified; I25.10 Atherosclerotic heart disease of native coronary artery without angina pectoris; E78.5 Hyperlipidemia, unspecified; I12.9 Hypertensive chronic kidney disease with stage 1 through stage 4 chronic kidney disease, or unspecified chronic kidney disease
CPT/HCPCS: 31500; 36415; 71045; 71046; 71275; 80048; 80053; 82550; 82803; 83605; 83735; 83880; 84145; 84484; 85025; 85651; 86140; 87040; 87070; 87205; 93005; 93306; 93308; 94640; 94760; 94761; 96365; 96366; 96372; 96375; 99285; C9803; J0330; J1956; Q9967; U0003; U0005

== ENCOUNTER 2021-06-19 12:43 | Outpatient (RCR) | payer MEDICARE, SELFPAY | END 2021-06-19 13:47 | disposition home or self-care (01) | LOC: PT 12:43 | PROVIDERS: PCP Internal Medicine Adolescent Medicine | DX: R53.81 Other malaise (principal); Z86.16 Personal history of COVID-19 | CPT/HCPCS: 97163 ==

== ENCOUNTER 2021-07-02 09:45 | Outpatient (RCR) | payer MEDICARE, SELFPAY | END 2021-08-20 14:30 | disposition home or self-care (01) | LOC: PT 09:45 | DX: R06.02 Shortness of breath (principal); J18.9 Pneumonia, unspecified organism; U09.9 Post COVID-19 condition, unspecified | CPT/HCPCS: 94626 ==

== ENCOUNTER → 2021-07-18 10:58 | Outpatient (CLI) | payer MEDICARE, SELFPAY ==
[2021-07-18 11:55] LABS: Basophils # 0.2 K/mm3 (0-0.2); Basophils % 1.8 % (0.1-2.0); Eosinophils # 0.3 K/mm3 (0.0-0.4); Hematocrit 49.8 % (42.0-52.0); Hemoglobin 16.2 g/dL (14.1-18.0); Lymphocytes # 2.5 K/mm3 (0.7-4.5); Lymphocytes % 31.1 % (10-50); Mean Corpuscular HGB Conc 32.5 g/dL (31.8-35.4); Mean Corpuscular Hemoglobin 31.6 pg (27.0-31.2); Mean Corpuscular Volume 97.1 fl (80-94); Mean Platelet Volume 7.9 fl (7.4-10.4); Monocytes # 0.8 K/mm3 (0.1-1.0); Monocytes % 10.1 % (1.7-9.3); Neutrophils # 4.3 K/mm3 (1.8-7.8); Platelet Count 300 K/mm3 (142-424); Red Blood Count 5.13 M/mm3 (4.60-6.20); Red Cell Distribution Width 13.7 % (11.5-17.5); White Blood Count 8.1 K/mm3 (4.8-10.8)
[2021-07-18 12:38] LABS: Chloride 100 mmol/L (98-107)
[2021-07-18 12:39] LABS: Potassium 4.4 mmoL/L (3.5-5.1); Sodium 136 mmol/L (136-145)
[2021-07-18 12:41] LABS: Alanine Aminotransferase 15 U/L (12-78); Alkaline Phosphatase 77 U/L (38-126); Anion Gap 13.4 mEq/L (5-15); Aspartate Amino Transferase 25 U/L (17-59); Bilirubin,Total 0.7 mg/dl (0.2-1.3); Blood Urea Nitrogen 13 mg/dl (9-20); Carbon Dioxide 27 mmol/L (22.0-30.0); Estimated Glomerular Filt Rate 67 ml/min (>60); GFR (African American) 81 ML/MIN (>60)
[2021-07-18 12:42] LABS: Albumin Level 4.4 g/dl (3.5-5.0); Albumin/Globulin Ratio 1.5 (1.1-1.8); Calcium 8.9 mg/dl (8.4-10.2); Globulin 2.9 g/dL (1.3-3.2); Glucose 107 mg/dl (74-100); Magnesium 1.8 mg/dl (1.6-2.3); Total Protein,Serum 7.3 g/dl (6.3-8.2)
[2021-07-18 12:54] LABS: NT Pro Brain Natriuretic Pep. 341 pg/mL (0-125)
[2021-08-28 19:04] LABS: HDL-C 38; LDL-C 48; LDL-P 575; Triglycerides 184
[2021-08-28 19:05] LABS: Cholesterol, Total 116; LDL Size 20.4; LP-IR Score 54
[2021-09-02 23:34] LABS: Historical Reporting PDF DONE
== END ==
PROVIDERS: Visit Provider Internal Medicine
DX: I25.10 Atherosclerotic heart disease of native coronary artery without angina pectoris (principal); I25.83 Coronary atherosclerosis due to lipid rich plaque; I50.22 Chronic systolic (congestive) heart failure
CPT/HCPCS: 36415; 80053; 83704; 83735; 83880; 85025

== ENCOUNTER 2023-06-04 11:04 | Outpatient (CLI) | payer MEDICARE, SELFPAY ==
[2023-06-04 12:04] LABS: Chloride 104 mmol/L (98-107); Potassium 4.1 mmoL/L (3.5-5.1); Sodium 139 mmol/L (136-145)
[2023-06-04 12:06] LABS: Alanine Aminotransferase 34 U/L (12-78); Aspartate Amino Transferase 41 U/L (17-59); Blood Urea Nitrogen 15 mg/dl (9-20); Estimated Glomerular Filt Rate 55 ml/min (>60); GFR (African American) 66 ML/MIN (>60)
[2023-06-04 12:07] LABS: Albumin/Globulin Ratio 1.2 (1.1-1.8); Alkaline Phosphatase 89 U/L (38-126); Anion Gap 17.1 mEq/L (5-15); Bilirubin,Total 0.6 mg/dl (0.2-1.3); Calcium 9.3 mg/dl (8.4-10.2); Carbon Dioxide 22 mmol/L (22.0-30.0); Globulin 3.3 g/dL (1.3-3.2); Glucose 109 mg/dl (74-100); Magnesium 1.8 mg/dl (1.6-2.3); Total Protein,Serum 7.3 g/dl (6.3-8.2)
[2023-06-04 12:16] LABS: NT Pro Brain Natriuretic Pep. 255 pg/mL (0-125)
== END 2023-06-04 23:59 ==
LOC: LAB 11:07
PROVIDERS: PCP Internal Medicine Adolescent Medicine; Visit Provider Internal Medicine
DX: I50.9 Heart failure, unspecified (principal)
CPT/HCPCS: 36415; 80053; 83735; 83880

== ENCOUNTER 2023-07-13 12:51 | Outpatient (CLI) | payer MEDICARE, SELFPAY ==
[2023-07-13 13:58] LABS: Chloride 105 mmol/L (98-107); Potassium 4.4 mmoL/L (3.5-5.1); Sodium 138 mmol/L (136-145)
[2023-07-13 14:01] LABS: Alanine Aminotransferase 26 U/L (12-78); Albumin Level 4.1 g/dl (3.5-5.0); Albumin/Globulin Ratio 1.2 (1.1-1.8); Alkaline Phosphatase 92 U/L (38-126); Anion Gap 8.4 mEq/L (5-15); Aspartate Amino Transferase 29 U/L (17-59); Bilirubin,Total 0.5 mg/dl (0.2-1.3); Blood Urea Nitrogen 14 mg/dl (9-20); Calcium 9.4 mg/dl (8.4-10.2); Carbon Dioxide 29 mmol/L (22.0-30.0); Estimated Glomerular Filt Rate 60 ml/min (>60); GFR (African American) 72 ML/MIN (>60); Globulin 3.3 g/dL (1.3-3.2); Glucose 102 mg/dl (74-100); Total Protein,Serum 7.4 g/dl (6.3-8.2)
[2023-07-13 14:02] LABS: Magnesium 1.8 mg/dl (1.6-2.3)
[2023-07-13 14:07] LABS: NT Pro Brain Natriuretic Pep. 100 pg/mL (0-125)
== END 2023-07-13 23:59 ==
PROVIDERS: PCP Internal Medicine Adolescent Medicine; Visit Provider Internal Medicine
DX: I50.9 Heart failure, unspecified (principal)
CPT/HCPCS: 36415; 80053; 83735; 83880

== ENCOUNTER 2024-03-04 07:13 | Outpatient (CLI) | payer MEDICARE, SELFPAY ==
--- NOTE | 2024-03-04 07:18 | CT_ITS ---
FINAL REPORT TECHNIQUE: Thin section axial images were obtained from the lung apices to the upper abdomen by computed tomography. Reformatted images were obtained and reviewed. This study was performed with techniques to keep radiation doses al low as reasonably achievable (ALARA). Individualized dose reduction techniques using automated exposure control or adjustment of mA and/or kV according to the patient's size were employed. CLINICAL HISTORY: SCREENING FORMER SMOKER QUIT 9 YEARS AGO, 1PPD X43 YEARS COMPARISON: 02/23/2021 FINDINGS: CHEST CT LOW DOSE CTDI vol (mGy): 2.9 DLP (mGy-cm): 101.86 There is no axillary adenopathy. Mild mediastinal adenopathy is present, with an AP window node measuring 22 mm, stable when compared to the prior CT of 2020. The heart is normal in size. Severe coronary artery calcifications are identified. There is no pericardial or pleural effusion. There is mild emphysema and moderate pulmonary scarring. Lung window images demonstrate a posterior right upper lobe nodule, 5 mm in size, best seen on image #32 of series 3, stable. There is a calcified granuloma present in the left upper lobe. Limited images of the upper abdomen reveal a 19 mm probable cyst in the posterior aspect of the left kidney, stable when compared to the prior CT. IMPRESSION: Lung-RADS category 1S, with the S designation for severe coronary artery calcifications and scarring. Recommend 12 month follow up low dose chest CT. Reviewed, Interpreted and Dictated by Osei Cotto III, MD Transcribed by Marcela Do Authenticated and [facility]
== END 2024-03-04 23:59 | disposition home or self-care (01) ==
LOC: RAD 07:13
PROVIDERS: PCP Internal Medicine Adolescent Medicine; Visit Provider Internal Medicine Adolescent Medicine
DX: Z87.891 Personal history of nicotine dependence (principal)
CPT/HCPCS: 71271

== ENCOUNTER → 2024-10-21 13:31 | Outpatient (CLI) | payer MEDICARE, SELFPAY | LOC: SL 10-24 13:32 | PROVIDERS: PCP Internal Medicine Adolescent Medicine; Visit Provider Internal Medicine Adolescent Medicine | DX: G47.36 Sleep related hypoventilation in conditions classified elsewhere; D75.1 Secondary polycythemia; G47.33 Obstructive sleep apnea (adult) (pediatric) | CPT/HCPCS: G0399 ==

== ENCOUNTER 2025-03-29 13:05 | Outpatient (CLI) | payer MEDICARE, SELFPAY ==
--- OUTSIDE RECORDS SUMMARY | 2024-08-27 16:30 | XMS_ITS ---
Author Organization [facility] Address [address] [facility] [address] [place] [address] Care Team Providers Care Manager Talent Management Name Role Phone Nick Espinoza Primary Care Provider Migration, Provider Unavailable Unavailable REASON FOR VISIT [facility] To [facility] Conversion Encounter Medications Medication SIG (Take, Route, Frequency, Duration) Notes Start Date End Date Status Spironolactone 25 MG 1 tablet orally onc e a day; Duration: 30 days Active Pantoprazole Sodium 40 MG 1 tab(s) orall y once a day; Duration: 90 days Active Allopurinol 100 MG 1 tab(s) orally once a day; Duration: 90 days Active Atorvastatin Calcium 80 MG 1 tab(s) oral ly once a day; Duration: 90 days Active Nitroglycerin 0.4 MG 1 tab(s) sublingual ly every 5 minutes; Duration: 30 days Active Valsartan 80 MG 1 tab(s) orally once a day Active Jardiance 25 MG 1 tab(s) orally once a day (in the morning) Active Bisoprolol Fumarate 10 MG 1 tab(s) orall y once a day; Duration: 30 days Active Aspirin 81 MG 1 tab(s) orally once a day; Duration: 90 days 04/02/2020 Active Encounters Encounter Location Date Provider Diagnosis [facility] [address] [place] [address] 08/27/2024 Provider Migration Plan Of Treatment Next Appt Details Provider Name:Nick Espinoza, 04/10/2025 10:30:00 AM, [address], [address], [place], [address], Progress Notes * Les ROSALESDOB: [birth year] (74 yo M)Acc No.[id number]:08/27/2024 Patient: Les MESA Provider: Sarah Shultz :1950 A ge:73 Y S ex:Male Date:08/27/2024 Address:[address] [place] [address] , [place], [id number] Pcp:Nick Espinoza Subjective: * Chief Complaints: * 1 . [facility] To Medispan Conversion Encounter. * Medical History: * Medications: T aking Jardiance 25 MG Tablet 1 tab(s) orally once a day (in the morning) , Taking Valsartan 80 MG Tablet 1 tab(s) orally once a day , Taking Aspirin 81 MG Tablet Delayed Release 1 tab(s) orally once a day , Taking Bisoprolol Fumarate 10 MG Tablet 1 tab(s) orally once a day , Taking Nitroglycerin 0.4 MG Tablet Sublingual 1 tab(s) sublingually every 5 minutes , Taking Atorvastatin Calcium 80 MG Tablet 1 tab(s) orally once a day , Taking Spironolactone 25 MG Tablet 1 tablet orally once a day , Taking Allopurinol 100 MG Tablet 1 tab(s) orally once a day , Taking Pantoprazole Sodium 40 MG Tablet Delayed Release 1 tab(s) orally once a day Objective: * Vitals: Assessment: Plan: * Treatment: * * Electronic signature of Prov ider Migration on 03/29/2025 at 01:19 PM EST Sign off status: Pending * Provider: Sarah Shultz Date: 08/27/2024 Generated for Jared saenz/Shelly/Sisi on: 05/29/2024 01:19 PM EST
--- OUTSIDE RECORDS SUMMARY | 2025-02-10 06:00 | XMS_ITS ---
Author Organization [facility] Address [address] [place] [address] Care Team Providers Care Greenhouse Superintendent Name Role Phone Nick Espinoza Primary Care Provider Allergies No Known Allergies REASON FOR VISIT 4 month f/u, flu shot Medications Medication SIG (Take, Route, Frequency, Duration) Notes Start Date End Date Status Aspirin 81 MG 1 tab(s) orally once a day; Duration: 90 days 04/02/2020 Active Spironolactone 25 MG 1 tablet orally onc e a day; Duration: 30 days Active Atorvastatin Calcium 80 MG 1 tab(s) oral ly once a day; Duration: 90 days Active Nitroglycerin 0.4 MG 1 tab(s) sublingual ly every 5 minutes; Duration: 30 days Active Bisoprolol Fumarate 10 MG 1 tab(s) orall y once a day; Duration: 30 days Active Valsartan 80 MG 1 tab(s) orally once a day Active Jardiance 25 MG 1 tab(s) orally once a day (in the morning) Active Pantoprazole Sodium 40 MG Take 1 tablet by mouth once daily for 90 days; Duration: 90 Active Allopurinol 100 MG Take 1 tablet by jr th once daily; Duration: 90 Active Diclofenac Sodium 1 % appy three times d aily Externally daily; Duration: 90 days 09/19/2024 Active Immunizations Vaccine Route Administration Date Status Comme nts Fluzone High Dose IM Intramuscular 02/10/2025 Administered Social History Tobacco Use: Social History Observation Description Date Details (start date - stop date) Former Smoker NA - NA Smoking: Question Answer Notes Are you a: former smoker How long has it been since you last smoked? 1-5 years Section Notes: Lives with spouse. Vital Signs Temperature 97.6 degrees Fahrenheit 02/11/20 25 Blood pressure systolic 106 mm Hg 02/11/20 25 Blood pressure diastolic 72 mm Hg 025 Heart Rate 78 /min 02/10/2025 Height 5 ft 10 in in 02/10/2025 Weight 204.6 lbs 02/10/2025 BMI 29.35 kg/m2 02/10/2025 Encounters Encounter Location Date Provider Diagnosis [facility] [address] [place] [address] 02/10/2025 Nick Espinoza Immunization(s) administered Z23 ; Heart failure with reduced left ventricular function I50.20 ; Essential (primary) hypertension I10 ; Atherosclerosis of [place] coronary artery of [place] heart without angina pectoris I25.10 and Chronic kidney disease, stage 3a N18.31 Assessments Encounter Date Diagnosis (ICD Code) Assessment Notes Treatment Notes Treatment Clinical Notes Section Notes 02/10/2025 Immunization(s) administered (ICD-10 - Z23) Flu shot administered today, will update other vaccinations at Medicare wellness exam in a couple of months 02/10/2025 Heart failure with reduced left ventricular function (ICD-10 - I50.20) Blood pressure is low range of normal. Patient is asymptomatic. On goal-directed therapy for heart failure, this seems to be fairly ideal. Went over with him symptoms of orthostasis and to come back if this gets worse. 02/10/2025 Essential (primary) hypertension (ICD-10 - I10) See notes above 02/10/2025 Atherosclerosis of [place] coronary artery of [place] heart without angina pectoris (ICD-10 - I25.10) Asymptomatic, on appropriate therapy 02/10/2025 Chronic kidney disease, stage 3a (ICD-10 - N18.31) Function been stable, I reviewed last labs with him. No changes in plan Plan Of Treatment Treatment Notes Assessment Notes Immunization(s) administered Flu shot ad ministered today, will update other vaccinations at Medicare wellness exam in a couple of months Heart failure with reduced l eft ventricular function Blood pressure is low range of normal. Patient is asymptomatic. On goal-directed therapy for heart failure, this seems to be fairly ideal. Went over with him symptoms of orthostasis and to come back if this gets worse. Essential (primary) hypertension See not es above Atherosclerosis of [place] co ronary artery of k[place] heart without angina pectoris Asymptomatic, on appropriate therapy Chronic kidney disease, stage 3a Functio n been stable, I reviewed last labs with him. No changes in plan Next Appt Details Follow Up: prn, Reason: Provider Name:Nick Espinoza, 04/10/2025 10:30:00 AM, [address], [address], [place], [address], Progress Notes * Les ROSALESDOB: [birth year] (74 yo M)Acc No.[id number]:02/10/2025 Progress Notes Patient: Les MESA Provider: Frandy Espinoza MD :1950 A ge:74 Y S ex:Male Date:02/10/2025 Address:[address] [place] [address] , [id number] Subjective: * Chief Complaints: * 1 . 4 month f/u. 2. Flu shot. * HPI: g en: Here for 4-month follow-up of his multiple problems. Overall feels well. Denies any type of dizziness, syncope or presyncope or unsteadiness or orthostatic symptoms. Notes that his blood pressure at home has been in the low 110 range. No edema. Following with his mice raiser next week. Wants a flu shot today. * Medical History: A rthritis, Hypertension, Erectile dysfunction, Hyperlipidemia, CKD, Kidney stones, Normal colonoscopy 2016 at [facility], Low Dose CT chest 11/11 with nodule requiring 6 month f/u - follow up on CT with contrast 05/13 unchanged. - birads1 02/2024, Covid, LV mural thrombus. * Surgical History: R ight knee arthroscopy 2007, Nasal septum repair 2009, Orthoscopic surgery-lt knee 05/2015, stents x 3 03/2016, cardiac cath 03/2016, kidney stone 05/2017, LEft carotid endarterectomy 10/25, Rt carotid endarterectomy 12/17, right carpal tunnel release 08/2023. * Hospitalization/Major Diagno stic Procedure[facility], [facility] then transferred to [facility] for kidney stones 05/2017, Lt and Rt carotid endarterectomy 10/28 and 12/17, [place] - Covid 03/28-04/29/2021, Codie Coreas for 1 wk 04/2021. * Family History: F ather: 53 yrs, heart disease. M other: alive. P aternal Grand Father: . P aternal Grand Mother: . M aternal Grand Father: . M aternal Grand Mother: . P aternal aunt: . M aternal uncle: alive. M aternal aunt: alive. S iblings: alive. C hildren: alive. 4 brother(s) , 2 sister(s) - healthy. 1 daughter(s) - healthy. . * Social History: S moking A re you a: f ormer smoker, H ow long has it been since you last smoked??1-5 years. R ecreational drug use: no. Exercise: yes. Home smoke detector use: yes. Caffeine: yes, frequency: 2 coffee daily. Living Will: No. Alcohol: socially, Beer 1 every other day. Sexually active: yes. Travel outside : no. Occupation: retired from 09/2016-[employer]. Lives with spouse. * Medications: T aking Jardiance 25 MG [...] tablet orally once a day , Taking Diclofenac Sodium 1 % Gel appy three times daily Externally daily , Taking Allopurinol 100 MG Tablet Take 1 tablet by mouth once daily , Taking Pantoprazole Sodium 40 MG Tablet Delayed Release Take 1 tablet by mouth once daily for 90 days , Medication List reviewed and reconciled with the patient * Allergies: N .K.D.A. Objective: * Vitals: N urse: jl, Pain: 0, Temp: 97.6, RR: 18, HR: 78, BP: 106/72, Ht: 5 ft 10 in, Wt: 204.6, BMI:29.35. * Examination: G eneral Examination: General P leasant and Cooperative, NAD on RA,. Oral cavity: M oist membranes. Chest: n ormal shape and expansion. Heart: R egular Rate and Rhythm, no murmur, rubs or gallops. HEENT: p harynx and tonsils normal, TM's normal. Lungs: L CTAB, No wheezes, crackles or rhonchi, Good air movement,. Abdomen: S oft, NTND, BSNA, No organomegaly or peritoneal signs.. Neurologic Exam: n o focal signs,, normal sensation, strength, tone and reflexes,, Alert and oriented x 3. Skin: w ithout acute rashes. Peripheral pulses: n ormal (2+) bilaterally. Back: n ormal,. Extremities: n ormal ROM,, no clubbing, no edema,, no foot lesions,. neck s upple,, no thyromegaly,, no lymphadenopathy,. Psych N ormal Mood/Affect. diabetic foot exam V isual exam of foot performed: Y es. Neck s upple, no lymphadenopathy. General Appearance: N AD, pleasant. Assessment: * Assessment: 1. H eart failure with reduced left ventricular function - I50.20 (Primary) 2 .?Immunization(s) administered - Z23 3 . E ssential (primary) hypertension - I10 4 . A therosclerosis of k[place] coronary artery of [place] heart without angina pectoris - I25.10 5 . C hronic kidney disease, stage 3a - N18.31 ? Plan: * Treatment: 2. I mmunization(s) administered Notes: Flu shot administered today, will update other vaccinations at Medicare wellness exam in a couple of months 3. E ssential (primary) hypertension Notes: See notes above 4. A therosclerosis of [place] coronary artery of [place] heart without angina pectoris Notes: Asymptomatic, on appropriate therapy 5. C hronic kidney disease, stage 3a Notes: Function been stable, I reviewed last labs with him. No changes in plan * Immunizations: Fluzone High Dose : 0.5 mL (Dose No:1) (Route: Intramuscular) given by JOHN Brewster on Left Deltoid (Immunization(s) administered) * Procedure Codes: 9 0662 Influenza High Dose Vaccine >65 Years Old, G0008 ADMINISTRATION-FLU VACCINE MEDICARE ONLY * Follow Up: p rn * * Sign off status: Completed true * Provider: Frandy Espinoza MD Date: 0 02/10/2025 Generated for Bylineri ng/Fanolag/eTransmitting on: 1 05/29/2024 01:19 PM EST History and Physical Notes * HPI (History of Present Illness) Category Sub-Category Detail Notes Category Not es gen Here for 4-month follow-up of his multiple problems. Overall feels well. Denies any type of dizziness, syncope or presyncope or unsteadiness or orthostatic symptoms. Notes that his blood pressure at home has been in the low 110 range. No edema. Following with his mice raiser next week. Wants a flu shot today. Examination Category Sub-Category Detail Notes Category Not es General Examination HEENT: pharynx and tonsils normal, TM's normal Neck supple, no lymphaden opathy Heart: Regular Rate and Rhy thm, no murmur, rubs or gallops Lungs: LCTAB, No wheezes, c rackles or rhonchi, Good air movement, Abdomen: Soft, NTND, BSNA, No organomegaly or peritoneal signs. Extremities: normal ROM,, no club maxwell, no edema,, no foot lesions, General Appearance: NAD, pleasant Skin: without acute rashes Neurologic Exam: no focal signs,, nor mal sensation, strength, tone and reflexes,, Alert and oriented x 3 Oral cavity: Moist membranes Peripheral pulses: normal (2+) bilatera lly Back: normal, Chest: normal shape and exp ansion neck supple,, no thyromeg alverto,, no lymphadenopathy, General Pleasant and Coopera tive, NAD on RA, Psych Normal Mood/Affect diabetic foot exam Visual exam of foot performed :: Yes
--- OUTSIDE RECORDS SUMMARY | 2025-03-06 09:17 | XMS_ITS | Encounter Summary ---
Author Organization [facility] Address [address] [place] [address] Care Team Providers Care Hydraulic Design Engineer Name Role Phone Nick Espinoza MD Primary Care Provider [phone] Reason for Referral * Imaging (Routine) - Closed Specialty Diagnoses / Procedures Referred By Contac t Referred To Contact Cardiology Diagnoses Chronic systolic heart failure Procedures Echo, Adult Transthoracic Complete Antony Maldonado MD [address] [place] [address] Phone: tel: fax: Referral ID Status Reason Start Date Expiration Date V isits Requested Visits Authorized [id number] Closed Perform Procedure 09/12/2024 03/14/2026 1 1 Reason for Visit * Imaging (Routine) - Closed Specialty Diagnoses / Procedures Referred By Contac t Referred To Contact Cardiology Diagnoses Chronic systolic heart failure Procedures Echo, Adult Transthoracic Complete Antony Maldonado MD [address] [place] [address] Phone: tel: fax: Referral ID Status Reason Start Date Expiration Date V isits Requested Visits Authorized [id number] Closed Perform Procedure 09/12/2024 03/14/2026 1 1 Encounter Details Date Type Department Care Team (Latest Contact Info) Description 03/06/2025 10:17 AM EDT - 03/06/2025 11:59 PM EDT Hospital Encounter Medical Office Building Cardiac Diagnostic Testing Medical Office Building Echo Lab [address], [address] [place] [address] Chronic systolic heart failure Discharge Disposition: Home or Self Care Social History Tobacco Use Types Packs/Day Years Used Date Smoking Tobacco: Former Cigarettes 1 43 1 972 - 2014 Smokeless Tobacco: Never Comments:Former smoker, stop ped smoking in distant past Alcohol Use Standard Drinks/Week Comments Yes 0 (1 standard drink = 0.6 oz pur e alcohol) social PHQ-2 Answer Date Recorded Patient Health Questionnaire-2 Score 0 03/06/2025 PHQ-9 Answer Date Recorded Patient Health Questionnaire-9 Score 0 03/06/2025 PHQ-2A Answer Date Recorded Patient Health Questionnaire-2 Score 0 10/01/2022 Sex and Gender Information Value Date Recorded Sex Assigned at Not on file Legal Sex Male 7:32 PM EDT Gender Identity Not on file Sexual Orientation Not on file documented as of this encounter Functional Status * Over the past 2 weeks, how often have you been bothered by any of the following problems? Question Answer Date of Assessment Author Little interest or pleasure in doing things Not at all 03/06/2025 12:38 PM EDT Rachele Perez RN Feeling down, depressed, or hopeless Not at all 03/06/2025 12:38 PM EDT Rachele Perez RN Patient Health Questionnaire -2 Score 0 03/06/2025 12:38 PM EDT Rachele Perez RN * Question Answer Date of Assessment Author Trouble falling or staying asleep, or sleeping too much Not at all 03/06/2025 12:38 PM TIMURT Rachele Perez RN Feeling tired or having mena le energy Not at all 03/06/2025 12:38 PM TIMURT Rachele Perez RN Poor appetite or overeating Not at all 03/06/2025 12 :38 PM TIMURT Rachele Perez RN Feeling bad about yourself - or that you are a failure or have let yourself or your family down Not at all 03/06/2025 12:38 PM Rachele Salazar RN Trouble concentrating on things, such as reading the newspaper or watching television Not at all 03/06/2025 12:38 PM TIMURT Rachele Perez RN Moving or speaking so slowly that other people could have noticed? Or the opposite - being so fidgety or restless that you have been moving around a lot more than usual. Not at all 03/06/2025 12:38 PM EDT Rachele Perez RN Thoughts that you would be better off or hurting yourself in some way Not at all 03/06/2025 12:38 PM EDT Rachele Perez RN Patient Health Questionnaire -9 Score 0 03/06/2025 12:38 PM EDT Rachele Perez RN * How difficult have these problems made it for you to do your work, take care of things at home, or get along with other people? Answer Date of Assessment Author Not difficult at all 03/06/2025 12:38 PM EDRachele Jones RN documented as of this encounter Medications at Time of Discharge allopurinol (Zyloprim) 100 MG tablet Take 1 tablet (100 mg) by mouth 1 (one) time each day. aspirin 81 MG chewable tablet Chew 1 tablet (81 mg) 1 (one) time each day. aspirin 81 mg tablet 30 tablet 11 07/01/2021 atorvastatin (Lipitor) 80 MG tabletIndications:Mi xed hyperlipidemia Take 1 tablet by mouth once daily 90 tablet 03/03/2025 bisoprolol (Zebeta) 10 MG tabletIndications:Ch ronic systolic heart failure Take 1 tablet by mouth once daily 90 tablet 01/17/2025 Jardiance 10 MGIndications:Ischem ic cardiomyopathy TAKE 1 TABLET BY MOUTH ONCE A DAY 90 tablet 3 08/16/2024 Melatonin 5 MG tablet tablet Take 1 tablet (5 mg) by mouth at night if needed. nitroglycerin (Nitrostat) 0.[address] 1 tablet (0.4 mg) under the tongue if needed for chest pain. 02/20/2023 pantoprazole (Protonix) 40 MG EC tablet Take 1 tablet (40 mg) by mouth 1 (one) time each day. 09/03/2023 spironolactone (Aldactone) 25 MG tabletIndications:Is chemic cardiomyopathy Take 1 tablet by mouth once daily 90 tablet 1 02/13/2025 sacubitril-valsartan (Entresto) 49-51 MG tabletIndications:Ca rdiomyopathy, ischemic Take 1 tablet by mouth 2 times a day. 60 tablet 5 03/06/2025 documented as of this encounter Plan of Treatment Upcoming Encounters Date Type Department Care Team (Late st Contact Info) Description 09/18/2025 11:40 AM EDT Office Visit [facility] [address], [address] [place] [address] Antony Maldonado MD [address] [place] [address] documented as of this encounter Procedures Procedure Name Priority Date/Time Associated Diagnosis Comments ECHO, ADULT TRANSTHORACIC COMPLETE Routine 03/06/2025 10:59 AM EDT Chronic systolic heart failure documented in this encounter Results * ECHO, ADULT TRANSTHORACIC COMPLETE (03/06/2025 10:59 AM EDT) Height 180.3 COLLIN ISCV Weight 93.9 COLLIN ISCV BSA 2.14 m2 COLLIN ISCV LVIDd 45 mm COLLIN ISCV LVIDs 34 mm COLLIN ISCV IVSd 10 mm COLLIN ISCV LVPWd 10 mm COLLIN ISCV LV MASS(C)D 153 g COLLIN ISCV [facility] CV ECHO LV MASS INDEX 71 g/m2 COLLIN ISCV LV RWT 0.44 mm COLLIN ISCV LV EDV(MOD-4ch) 102 mL COLLIN ISCV LV ESV(MOD4ch) 56 mL COLLIN ISCV EF(MOD-sp4) 45 % COLLIN ISCV LV EDV(MOD-2ch) 84 mL COLLIN ISCV LV ESV(MOD2ch) 49 mL COLLIN ISCV EF(MOD-sp2) 42 % COLLIN ISCV EDV(MOD-bp) 93 mL COLLIN ISCV ESV(MOD-bp) 53 mL COLLIN ISCV EF(MOD-bp) 44 % COLLIN ISCV LVOT diam 23 mm COLLIN ISCV LVOT AREA 4.2 cm2 COLLIN ISCV MV E Vmax 58.2 cm/s COLLIN ISCV MV A Vmax 52.4 cm/s COLLIN ISCV MV E/A 1.1 cm/s COLLIN ISCV LA dimension 33 mm COLLIN ISCV RV base 40 mm COLLIN ISCV RV Mid 27 mm COLLIN ISCV RV s' [place] 14.9 cm/s COLLIN ISCV TAPSE 20 mm COLLIN ISCV MV dec slope 247 cm/s2 COLLIN ISCV MV dec time 240 ms COLLIN ISCV MV P1/2t 70 ms COLLIN ISCV MVA(P1/2t) 3.2 cm2 COLLIN ISCV Ao Root Diam 36 mm COLLIN ISCV Asc Ao Diam 32 mm COLLIN ISCV LVLs ap2 6.6 mm COLLIN ISCV LAV(MOD-bp) Indexed 35 mL/m2 COLLIN ISCV LAV(MOD-4ch) 79 mL COLLIN ISCV LAV(MOD-2ch) 69 mL COLLIN ISCV RA MOD 4Ch 26 mL COLLIN ISCV BRITTANEY 12 mL/m2 COLLIN ISCV PA acc time 100 msec COLLIN ISCV mean PAP 34 mmHg COLLIN ISCV PA PA(ACCEL) 36.2 mmHg COLLIN ISCV PA acc slope 586.7 cm/s2 COLLIN ISCV LV Lat e' Velocity 7.0 cm/s COLLIN ISCV LV Sept e' [place] 4.3 cm/s COLLIN ISCV Lat E/e' 8.3 COLLIN ISCV Sep E/e' 13.5 COLLIN ISCV Avg E/e' 10.9 COLLIN ISCV Ao V2 VTI 13.4 cm COLLIN ISCV Ao mean PG 1 mmHg COLLIN ISCV Ao V2 Vmax 71.3 cm/s COLLIN ISCV Ao max PG 2 mmHg COLLIN ISCV Ao V2 mean 44.7 cm/s COLLIN ISCV Anatomical Region Laterality Modality Echocardiography Narrative 03/06/2025 1:22 PM EDT Based on the linear dimension and/or 2D volumes, the left ventricle is normal in size. There is normal left ventricular myocardial thickness and mass. The left ventricular systolic function is mildly reduced. The LVEF as measured by biplane volume is 44%. The diastolic function is abnormal. See diagram below for wall motion findings. The right ventricle is normal in size. The right ventricular systolic function is normal. No pericardial effusion. Compared to the most recently available prior study, and allowing for differences in image quality and technique, there is no significant interval change noted. Left Ventricle Based on the linear dimension and/or 2D volumes, the left ventricle is normal in size. There is normal left ventricular myocardial thickness and mass. The left ventricular systolic function is mildly reduced. The LVEF as measured by biplane volume is 44%. The diastolic function is abnormal. See diagram below for wall motion findings. Right Ventricle The right ventricle is normal in size. The right ventricular systolic function is normal. The estimated global right ventricular systolic function based upon the tricuspid annular plane of systolic excursion (TAPSE) is normal (>=17 mm). The estimated global right ventricular systolic function based upon the TDI maximal systolic velocity is normal (>=9.5 cm/s). The spectral Doppler envelope of TR is not adequate for calculating the right ventricular systolic pressure (RVSP). Based upon other 2D and Doppler features, the RVSP is probably normal or at most mildly elevated. Left Atrium The left atrial size is mildly increased with an indexed volume of 35-41 mL/m2. The interatrial septum is intact with no evidence for an atrial septal defect. Right Atrium The right atrial volume index is normal (<30mL/m2). IVC/SVC Based on the IVC size and respiratory variation, the estimated right atrial pressure is 3mmHg. Mitral Valve There is mild mitral annular calcification. There is mild mitral regurgitation with a central jet. There is no mitral stenosis. Tricuspid Valve The tricuspid valve is normal in appearance. There is trace tricuspid regurgitation. There is no tricuspid stenosis. Aortic Valve The aortic valve appears to be trileaflet. There is aortic annular calcification present. There is no valvular regurgitation. There is no hemodynamically significant valvular aortic stenosis. Pulmonic Valve The pulmonic valve is normal in appearance. There is no pulmonic regurgitation. There is no pulmonic stenosis. Pericardium No pericardial effusion. Great Vessels The aortic root is normal in size. The sinus of Valsalva (aortic root) diameter is 36 mm by leading edge to leading edge method. In the maximally visualized portion, the ascending aorta appears normal in size. The ascending aorta diameter is 32 mm. The main pulmonary artery is not well visualized. Study Details A complete transthoracic echocardiogram using two-dimensional (2D), m-mode, color and spectral flow Doppler imaging was performed. During the study the apical, parasternal, subcostal and suprasternal view was captured. Overall the study quality was poor. Heart rate was normal. Height: 180.3 cm. Weight: 93.9 kg. BSA: 2.14 m2. The heart rhythm during this exam was most suggestive of a sinus rhythm. Study Recommendation All cardiac valves were reasonably well interrogated with 2D imaging and/or Doppler assessment and no significant valve regurgitation or stenosis is seen. Compared to the most recently available prior study, and allowing for differences in image quality and technique, there is no significant interval change noted. Wall Scoring Baseline Score Index: 1.41 The following segments are akinetic: mid anteroseptal and apical septal. The following segments are hypokinetic: basal anteroseptal, basal inferoseptal and mid inferoseptal. All other segments are normal. Antony Maldonado MD CV ECHO PROCEDURES Final Result documented in this encounter Visit Diagnoses Diagnosis Chronic systolic heart failure documented in this encounter Additional Health Concerns Assessment Noted Time PHQ-9 Depression Total Score: 0 03/06/20 25 12:38 PM EDT A fall risk assessment has been complete d for the patient 03/06/2025 12:38 PM EDT A Body Mass Index follow-up plan has been documented for the patient 03/06/2025 1:04 PM EDT documented as of this encounter Care Teams Hydraulic Design Engineer Relationship Specialty Start Date End Date Nick Espinoza MD [address] [place] [address] [place] [id number] PCP - General 10/05/20 documented as of this encounter
--- OUTSIDE RECORDS SUMMARY | 2025-03-06 11:40 | XMS_ITS | Encounter Summary ---
Author Organization [facility] Address [address] [place] [address] Care Team Providers Care Human Resource Intern Name Role Phone Nick Espinoza MD Primary Care Provider [phone] Reason for Referral * Consultation (Routine) - Authorized Specialty Diagnoses / Procedures Referred By Contac t Referred To Contact Diagnoses Cardiomyopathy, ischemic Antony Maldonado MD [address] [place] [address] Phone: tel: fax: Referral ID Status Reason Start Date Expiration Date V isits Requested Visits Authorized [id number] Authorized 03/06/2025 09/05/2026 1 1 Reason for Visit * Reason Comments Chronic systolic heart failure (CMS/HCC) Coronary artery disease, unspecified ves lance or lesion type, Encounter Details Date Type Department Care Team ([facility] st Contact Info) Description 03/06/2025 12:40 PM EDT Office Visit [facility] [place] [address], [address] [place] [address] Antony Maldonado MD [address] [place] [address] Cardiomyopathy, ischemic (Primary Dx); Primary hypertension; Pure hypercholesterolemia; Shortness of breath; Healthcare maintenance; Coronary artery disease due to lipid rich plaque; Essential (primary) hypertension Social History Tobacco Use Types Packs/Day Years Used Date Smoking Tobacco: Former Cigarettes 1 43 1 972 - 2015 Smokeless Tobacco: Never Tobacco Cessation:Counseling Given: Not Answered Comments:Former smoker, stopped smoking in distant past Alcohol Use Standard [...] on file documented as of this encounter Last Filed Vital Signs Vital Sign Reading Time Taken Comments Blood Pressure 122/78 03/06/2025 12:30 PM EDT Pulse 65 03/06/2025 12:30 PM EDT Temperature - - Respiratory Rate - - Oxygen Saturation 94% 03/06/2025 12:30 PM EDT Inhaled Oxygen Concentration - - Weight 94.5 kg (208 lb 5.4 oz) 03/06/2025 12:30 PM EDT Height - - Body Mass Index 29.06 09/12/2024 10:08 AM EDT documented in this encounter Functional Status * Over the past 2 weeks, how often have you been bothered by any of the following problems? Question Answer Date of Assessment Author Little interest or pleasure in doing things Not at all 03/06/2025 12:38 PM EDT Jhonathan Perez RN Feeling down, depressed, or hopeless Not at all 03/06/2025 12:38 PM EDT Jhonathan Perez RN Patient Health Questionnaire -2 Score 0 03/06/2025 12:38 PM EDT Jhonathan Perez RN * Question Answer Date of Assessment Author Trouble falling or staying asleep, or sleeping too much Not at all 03/06/2025 12:38 PM EDT Jhonathan Perez RN Feeling tired or having mena le energy Not at all 03/06/2025 12:38 PM EDT Jhonathan Perez RN Poor appetite or overeating Not at all 03/06/2025 12 :38 PM EDT Jhonathan Perez RN Feeling bad about yourself - or that you are a failure or have let yourself or your family down Not at all 03/06/2025 12:38 PM EDT Jhonathan Peerz RN Trouble concentrating on things, such as reading the newspaper or watching television Not at all 03/06/2025 12:38 PM EDT Jhonathan Perez RN Moving or speaking so slowly that other people could have noticed? Or the opposite - being so fidgety or restless that you have been moving around a lot more than usual. Not at all 03/06/2025 12:38 PM EDT Jhonathan Perez RN Thoughts that you would be better off or hurting yourself in some way Not at all 03/06/2025 12:38 PM EDT Jhonathan Perez RN Patient Health Questionnaire -9 Score 0 03/06/2025 12:38 PM EDT Jhonathan Perez RN * How difficult have these problems made it for you to do your work, take care of things at home, or get along with other people? Answer Date of Assessment Author Not difficult at all 03/06/2025 12:38 PM EDT Jhonathan Corona RN documented as of this encounter Miscellaneous Notes * Patient Instructions - Nataly Ayoub PharmD - 03/06/2025 12:40 PM EDT - Increase Entresto to 49/51 mg twice daily. Will need to repeat labs in 2 weeks. You were given a printed lab request. * Addendum Note - Jhonathan Perez RN - 03/06/2025 12:40 PM EDTAddended by: JHONATHAN PEREZ on: 03/24/2025 11:26 AM Modules accepted: Orders * Addendum Note - Jhonathan Perez RN - 03/06/2025 12:40 PM EDTAddended by: JHONATHAN PEREZ on: 03/28/2025 03:55 PM Modules accepted: Orders * Progress Notes - Antony Maldonado MD - 03/06/2025 12:40 PM EDT Cardiology Clinic Note HPI: Les Pascual is a 74 y.o. male who presents for follow-up of CAD, PAD (s/p carotid endarterectomy), HTN, hyperlipidemia. Overall doing well and feeling well. No specific CV complaints reported. No physical limitations reported. 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 Nodule of upper lobe of right lung 04/01/2022 Other insomnia 08/20/2022 Acute meniscal tear of left knee 04/09/2015 Acute serous otitis media 01/31/2009 Arthropathy, lower leg 03/09/2015 Cardiomyopathy 03/09/2024 Carotid artery stenosis 10/20/2018 Corneal disorder 02/21/2009 Coronary artery disease 03/12/2018 Dizziness 03/09/2024 Dyslipidemia 03/12/2018 Dyspnea 03/09/2024 Elevated brain natriuretic peptide (BNP) level 03/09/2024 Essential hypertension 03/12/2018 HHD (hypertensive heart disease) 03/09/2024 Hyperlipidemia 10/20/2018 Injury of kidney 03/09/2024 Nephrolithiasis 03/09/2024 Obesity (BMI 30.0-34.9) 10/20/2018 Pain in joint, lower leg 03/01/2015 Unstable angina (CMS/HCC) 03/31/2016 Ureteral calculus 03/09/2024 Resolved Ambulatory Problems Diagnosis Date Noted Acute on chronic respiratory failure 03/30/2021 Shock (CMS/HCC) Organized pneumonia (CMS/HCC) 06/12/2021 Single subsegmental pulmonary embolism without acute cor pulmonale (CMS/HCC) 06/12/2021 LV (left ventricular) mural thrombus 06/12/2021 Abdominal wall hematoma 06/12/2021 NSTEMI (non-ST elevated myocardial infarction) 06/12/2021 Pre-syncope 06/12/2021 Physical deconditioning 04/01/2022 Acute COVID-19 03/09/2024 Acute kidney injury 09/08/2024 Past Medical History: Diagnosis Date Calculus of kidney CKD (chronic kidney disease) HLD (hyperlipidemia) Hypertension Old myocardial infarction Personal history of other diseases of the circulatory system PMH: 1. CAD, h/o PCI--> LAD, LCx,RCA (2016); LVEF 45-50%, anteroseptal HK/AK; h/o apical thrombus--> resolved on apixaban. 2. PAD, s/p CEA (2018) 3. HTN 4. Hyperlipidemia 5. CKD SH: Lives with spouse; one daughter age 30s and healthy. Former smoker, quit 7 years ago [email or web address] , former [employer], retired from [employer] FH: Mother - living, age 90s; healthy Father - , age 50s; [place] 6 Siblings - ages range 51-69 yrs; h/o CAD but no LA, CVA or heart failure Current Medications: Medications Ordered Prior to Encounter[1] ROS: Review of Systems Constitutional: Negative. HENT: Negative. Eyes: Negative. Cardiovascular: Negative. Respiratory: Negative. Endocrine: Negative. Hematologic/Lymphatic: Negative. Skin: Negative. Musculoskeletal: Negative. Gastrointestinal: Negative. Genitourinary: Negative. Neurological: Negative. Psychiatric/Behavioral: Negative. Allergic/Immunologic: Negative. PE: Visit Vitals BP 122/78 (BP Location: Left arm, Patient Position: Sitting) Pulse 65 Wt 94.5 kg (208 lb 5.4 oz) SpO2 94% BMI 29.06 kg/m?? Physical Exam Constitutional: General: He is not in acute distress. Appearance: He is not ill-appearing. HENT: Head: Normocephalic and atraumatic. Eyes: Extraocular Movements: Extraocular movements intact. Pupils: Pupils are equal, round, and reactive to light. Neck: Vascular: Normal carotid pulses. No carotid bruit, hepatojugular reflux or JVD. Cardiovascular: Rate and Rhythm: Normal rate and regular rhythm. Pulses: Carotid pulses are 2+ on the right side and 2+ on the left side. Radial pulses are 2+ on the right side and 2+ on the left side. Heart sounds: S1 normal and S2 normal. No murmur heard. No S3 or S4 sounds. Pulmonary: Effort: Pulmonary effort is normal. Breath sounds: Normal breath sounds. Abdominal: General: Bowel sounds are normal. There is no distension. Palpations: Abdomen is soft. Tenderness: There is no abdominal tenderness. Musculoskeletal: Cervical back: Neck supple. Right lower leg: No edema. Left lower leg: No edema. Skin: General: Skin is warm and dry. Neurological: Mental Status: He is alert and oriented to person, place, and time. Motor: No weakness. Psychiatric: Mood and Affect: Mood normal. Behavior: Behavior normal. Labs: Labs reviewed Results Cardiographics: Echocardiogram: Reviewed by Nd 2024 Echo, Adult Transthoracic Complete Result Date: 03/06/2025 Left Ventricle: Based on the linear dimension and/or 2D volumes, the left ventricle is normal in size. There is normal left ventricular myocardial thickness and mass. The LVEF as measured by biplane volume is 46%. The left ventricular filling pressure is elevated. Right Ventricle: The right ventricle is normal in size. The right ventricular systolic function is normal. Pericardium: No pericardialeffusion. There is no recent study available for direct [id number] comparison, but there are no significant changes from echocardiogram from 12/23/2022. ECG: NSR, 60 bpm; normal mean QRS/T wave axes; isoelectric ST segments. Assessment: 1. Ischemic Cardiomyopathy post COVID19, HFmrEF, NYHA Class IC - appears well compensated and euvolemic today. Plan to uptitrate sacubitril/valsartan to 49/51mg PO BID and continue other GDMT for HFrEF as precribed; results from the patient's echocardiogram were reviewed with the patient today. Permy assessment, LVEF ~ 38%; normal LV volume; KATALINA ~ 48 ml/m2; normal RV size and function; no significant valvular abnormalities. 2. CAD - asymptomatic; on aspirin 81mg daily; on high potency statin Rx. 3. HTN - well controlled currently. 4. Hyperlipidemia - on high potency statin Rx and tolerating well; last lipid panel from 2023 showsLDL at goal. 5. PAD - no symptoms reported today; on ASA. Plan: Increase sacubitril/valsartan to 49/51mg PO BID. Labs in 2 weeks. Continue other medications as prescribed. RTC 6 months. Time Spent:I spent 30 minutes of a total visit of 35 minutes in counseling/ direct management/discussion/coordination of patient's care. Antony Maldonado MD, PhD [facility], [facility] [place] [address] [email or web address] [[email or web address]] Current Outpatient Medications on File Prior to Visit Medication Sig Dispense Refill allopurinol (Zyloprim) 100 MG tablet Take 1 tablet (100 mg) by mouth 1 (one) time each day. Aspirin 81 MG capsule Take 1 tablet by mouth daily. aspirin 81 MG chewable tablet Chew 1 tablet (81 mg) 1 (one) time each day. aspirin 81 mg tablet 30 tablet 11 atorvastatin (Lipitor) 80 MG tablet Take 1 tablet by mouth once daily 90 tablet 0 bisoprolol (Zebeta) 10 MG tablet Take 1 tablet by mouth once daily 90 tablet 0 bisoprolol-hydroCHLOROthiazide (Ziac) 10-6.25 MG tablet Take 1 tablet by mouth daily. Jardiance 10 MG TAKE 1 TABLET BY MOUTH ONCE A DAY 90 tablet 3 Melatonin 5 MG tablet tablet Take 1 tablet (5 mg) by mouth at night if needed. nitroglycerin (Nitrostat) 0.[address] 1 tablet (0.4 mg) under the tongue if needed for chest pain. pantoprazole (Protonix) 40 MG EC tablet Take 1 tablet (40 mg) by mouth 1 (one) time each day. sacubitril-valsartan (Entresto) 24-26 MG tablet Take 1 tablet by mouth 2 times a day. 60 tablet 11 spironolactone (Aldactone) 25 MG tablet Take 1 tablet by mouth once daily 90 tablet 1 [DISCONTINUED] atorvastatin (Lipitor) 80 MG tablet Take 1 tablet by mouth once daily 90 tablet 0 No current facility-administered medications on file prior to visit. documented in this encounter Plan of Treatment Upcoming Encounters Date Type Department Care Team ([facility] st Contact Info) Description 09/18/2025 11:40 AM EDT Office Visit [facility] [place] [address], [address] [place] [address] Antony Maldonado MD [address] [place] [address] Scheduled Orders Name Type Priority Associated Diagnoses Orde r Schedule CBC and Differential Lab Routine Cardiomyopathy, ischemic Expected: 03/28/2025, Expires: 09/04/2026 Comprehensive metabolic panel Lab Routine Cardiomyopathy, ischemic Expected: 04/11/2025 (Approximate), Expires: 09/07/2026 Hemoglobin A1c Lab Routine Healthcare maintenance Expected: 03/28/2025 (Approximate), Expires: 09/07/2026 Lipid panel Lab Routine Pure hypercholesterolemia Expected: 03/28/2025 (Approximate), Expires: 09/07/2026 Magnesium, Plasma Lab Routine Cardiomyopathy, ischemic Expected: 04/11/2025, Expires: 03/06/2026 N-Terminal Probnp, Plasma Lab Routine Shortness of breath Expected: 03/28/2025, Expires: 03/06/2026 Protime-INR Lab Routine Cardiomyopathy, ischemic Expected: 03/28/2025 (Approximate), Expires: 09/07/2026 TSH Reflex FT4 Lab Routine Cardiomyopathy, ischemic Healthcare maintenance Essential (primary) hypertension Expected: 03/28/2025 (Approximate), Expires: 09/07/2026 Scheduled Referrals Name Type Priority Associated Diagnoses Order Schedule Follow Up Cardiology Outpatient Referral Routine Cardiomyopathy, ischemic Expected: 09/04/2025, Expires: 09/04/2026 documented as of this encounter Procedures Procedure Name Priority Date/Time Associated Diagnosis Comments ECG ADULT Routine 03/06/2025 12:33 PM EDT Cardiomyopathy, ischemic documented in this encounter Results * ECG Adult (03/06/2025 12:33 PM EDT) EKG DIAGNOSIS CLASS Abnormal MUSE ECG Ventricular Rate 60 BPM MUSE ECG Atrial Rate 60 BPM MUSE ECG DC Interval 148 ms MUSE ECG QRSD Interval 76 ms MUSE ECG QT Interval 402 ms MUSE ECG QTC Interval 402 ms MUSE ECG P Jackson 35 degrees MUSE ECG R Jackson -18 degrees MUSE ECG T Wave Jackson -5 degrees MUSE ECG Diagnosis Normal sinus rhythm MUSE ECG Diagnosis Cannot rule out Inferior infarct , age undetermined Need clinical information and correlation MUSE ECG Diagnosis Abnormal ECG MUSE ECG Diagnosis MUSE ECG Diagnosis Confirmed by Tao Portillo ([id number]) on 03/06/2025 12:36:09 PM MUSE ECG 03/06/2025 12:3 3 PM EDT 03/06/2025 12:36 PM EDT Antony Maldonado MD ECG ORDERABLES Final Result MUSE ECG documented in this encounter Visit Diagnoses Diagnosis Cardiomyopathy, ischemic- Primary Other specified forms of chronic ischemic heart disease Primary hypertension Unspecified essential hypertension Pure hypercholesterolemia Shortness of breath Healthcare maintenance Coronary artery disease due to lipid rich plaque Essential (primary) hypertension Unspecified essential hypertension documented in this encounter Additional Health Concerns Assessment Noted Time PHQ-9 Depression Total Score: 0 03/06/20 25 12:38 PM EDT A fall risk assessment has been complete d for the patient 03/06/2025 12:38 PM EDT A Body Mass Index follow-up plan has been documented for the patient 03/06/2025 1:04 PM EDT documented as of this encounter Care Teams Human Resource Intern Relationship Specialty Start Date End Date Nick Espinoza MD [address] [place] [address] PCP - General 10/05/20 documented as of this encounter
--- OUTSIDE RECORDS SUMMARY | 2025-03-29 13:18 | XMS_ITS | Encounter Summary ---
Author Organization [facility] Address [address] [place] [id number] Care Team Providers Care Pillowcase Maker Name Role Phone Nick Espinoza MD Primary Care Provider [phone] Encounter Details Date Type Department Care Team (Latest Contact Info) Description 03/06/2025 Travel Social History Tobacco Use Types Packs/Day Years [...] 12:38 PM EDT Rachele Perez RN Feeling tired or having mena le energy Not at all 03/06/2025 12:38 PM EDT Rachele Perez RN Poor appetite or overeating Not at all 03/06/2025 12 :38 PM EDT Rachele Perez RN Feeling bad about yourself - or that you are a failure or have let yourself or your family down Not at all 03/06/2025 12:38 PM EDT Rachele Perez RN Trouble concentrating on things, such as [...] difficult at all 03/06/2025 12:38 PM EDT Rachele Corona RN documented as of this encounter Plan of Treatment Upcoming Encounters Date Type Department Care Team (Late st Contact Info) Description 09/18/2025 11:40 AM EDT Office Visit [facility] [place] [address], [address] [place] [address] Antony Maldonado MD [address] [place] [address] documented as of this encounter Visit Diagnoses Not on filedocumented in this encounter Additional Health Concerns Assessment Noted Time PHQ-9 Depression Total Score: 0 03/06/20 25 12:38 PM EDT A fall risk assessment has been complete d for the patient 03/06/2025 12:38 PM EDT A Body Mass Index follow-up plan has been documented for the patient 03/06/2025 1:04 PM EDT documented as of this encounter Care Teams Pillowcase Maker Relationship Specialty Start Date End Date Nick Espinoza MD [address] [place] [address] PCP - General 10/05/20 documented as of this encounter
--- OUTSIDE RECORDS SUMMARY | 2025-03-29 13:19 | XMS_ITS | Encounter Summary ---
Author Organization [facility] Address [address] [place] [address] Care Team Providers Care Animal Impersonator Name Role Phone Nick Espinoza MD Primary Care Provider [phone] Encounter Details Date Type Department Care Team (Late Contact Info) Description 04/01/2021 Lab Requisition [facility] [address] [place] [id number] Volodymyr Anderson MD [address] [place] [address] Encounter for general adult medical examination without abnormal findings Social History Tobacco Use Types Packs/Day Years Used Date Smoking Tobacco: Former Comments:Former smoker, stop ped smoking in distant past Alcohol Use Standard Drinks/Week Comments Not Currently 0 (1 standard drink = 0.6 oz pur e alcohol) Sex and Gender Information Value Date Recorded Sex Assigned at Not on file Legal Sex Male 7:32 PM EDT Gender Identity Not on file Sexual Orientation Not on file documented as of this encounter Plan of Treatment Upcoming Encounters Date Type Department Care Team (Late Contact Info) Description 09/18/2025 11:40 AM EDT Office Visit [facility] [place] [address], [address] [place] [address] Antony Maldonado MD [address] [place] [address] documented as of this encounter Procedures Procedure Name Priority Date/Time Associated Diagnosis Comments MULTI DRUG RESISTANCE TEST Routine 04/01/2021 9:56 AM EST Encounter for general adult medical examination without abnormal findings documented in this encounter Results * Multi Drug Resistance Test (04/01/2021 9:56 AM EST) Culture No growth at day 2 04/03/2021 10:39 AM EST [facility] Swab (Nares and Laure Rectal) 04/01/2021 9:56 AM EST 04/01/2021 6:02 PM EST us Volodymyr Camp MD LAB MICROBIOLOGY - GENERAL ORDERABLES Final Result Performing Organization Address City/State/[facility] Co de Phone Number HEALTHCARE LAB [address] [place] [address] documented in this encounter Visit Diagnoses Diagnosis Encounter for general adult medical examination without abnormal findings documented in this encounter Care Teams Animal Impersonator Relationship Specialty Start Date End Date Nick Espinoza MD [address] [place] [address] PCP - General 10/05/20 documented as of this encounter
--- OUTSIDE RECORDS SUMMARY | 2025-03-29 13:19 | XMS_ITS | Encounter Summary ---
Author Organization [facility] Address [address] [place] [address] Care Team Providers Care Entry Clerk Name Role Phone Nick Espinoza MD Primary Care Provider [phone] Reason for Visit * Reason Comments Med Refill Encounter Details Date Type Department Care Team ([facility] Contact Info) Description 03/03/2025 Refill [facility] [place] [address] , [address] [place] [address] Antony Maldonado MD [address] [place] [address] Mixed hyperlipidemia Social History Tobacco Use Types Packs/Day Years Used Date Smoking Tobacco: Former Cigarettes 1 43 1 972 - 2014 Smokeless Tobacco: Never Comments:Former smoker, stop ped smoking in distant past Alcohol Use Standard Drinks/Week Comments Yes 0 (1 standard drink = 0.6 oz pur e alcohol) social PHQ-2 Answer Date Recorded Patient Health Questionnaire-2 Score 0 09/12/2024 PHQ-9 Answer Date Recorded Patient Health Questionnaire-9 Score 0 09/12/2024 PHQ-2A Answer Date Recorded Patient Health Questionnaire-2 Score 0 10/01/2022 Sex and Gender Information Value Date Recorded Sex Assigned at Not on file Legal Sex Male 7:32 PM EDT Gender Identity Not on file Sexual Orientation Not on file documented as of this encounter Plan of Treatment Upcoming Encounters Date Type Department Care Team ([facility] Contact Info) Description 09/18/2025 11:40 AM EDT Office Visit [facility] [place] [address] , [address] [place] [address] Antony Maldonado MD [address] [place] [address] documented as of this encounter Visit Diagnoses Diagnosis Mixed hyperlipidemia documented in this encounter Additional Health Concerns Assessment Noted Time PHQ-9 Depression Total Score: 0 09/13/19 25 10:20 AM EDT A fall risk assessment has been complete d for the patient 09/12/2024 10:20 AM EDT A Body Mass Index follow-up plan has been documented for the patient 09/12/2024 11:01 AM EDT documented as of this encounter Care Teams Entry Clerk Relationship Specialty Start Date End Date Nick Espinoza MD [address] [place] [address] PCP - General 10/05/20 documented as of this encounter
--- OUTSIDE RECORDS SUMMARY | 2025-03-29 13:19 | XMS_ITS | Encounter Summary ---
Author Organization [facility] Address [address] [place] [address] Care Team Providers Care Accreditation Specialist Name Role Phone Nick Espinoza MD Primary Care Provider [phone] Reason for Visit * Reason Comments Med Refill Encounter Details Date Type Department Care Team ([facility] Contact Info) Description 02/11/2025 Refill [facility] [place] [address] , [address] [place] [address] Antony Maldonado MD [address] [place] [address] Ischemic cardiomyopathy Social History Tobacco Use Types Packs/Day Years [...] Upcoming Encounters Date Type Department Care Team ([facility] Contact Info) Description 09/18/2025 11:40 AM EDT Office Visit [facility] [address] , [address] [place] [address] Antony Maldonado MD [address] [place] [address] documented as of this encounter Visit Diagnoses Diagnosis Ischemic cardiomyopathy Other specified forms of chronic ischemic heart disease documented in this encounter Additional Health Concerns Assessment Noted Time PHQ-9 Depression Total Score: 0 09/13/19 25 10:20 AM EDT A fall risk assessment has been complete d for the patient 09/12/2024 10:20 AM EDT A Body Mass Index follow-up plan has been documented for the patient 09/12/2024 11:01 AM EDT documented as of this encounter Care Teams Accreditation Specialist Relationship Specialty Start Date End Date Nick Espinoza MD [address] [place] [address] PCP - General 10/05/20 documented as of this encounter
--- OUTSIDE RECORDS SUMMARY | 2025-03-29 13:19 | XMS_ITS | Encounter Summary ---
Author Organization [facility] Address [address] [id number] Care Team Providers Care Financial Aid Advisor Name Role Phone Nick Espinoza MD Primary Care Provider [phone] Encounter Details Date Type Department Care Team (Late Contact Info) Description 03/28/2021 Orders Only External Location [address] [place] [address] Camden Woo MD [address] [place] [address] Social History Tobacco Use Types Packs/Day Years Used Date Smoking Tobacco: Former Comments:Former smoker, stop ped smoking in distant past Alcohol Use Standard Drinks/Week Comments No 0 (1 standard drink = 0.6 oz [...] Description 09/18/2025 11:40 AM EDT Office Visit [facility] [place] [address] [facility] [place], [address] [place] [address] Antony Maldonado MD [address] [place] [address] documented as of this encounter Procedures Procedure Name Priority Date/Time Associated Diagnosis Comments CT THORACIC OUTSIDE IMAGES 03/28/2021 8:39 PM EDT documented in this encounter Results * CT THORACIC OUTSIDE IMAGES (03/28/2021 8:39 PM EDT) Anatomical Region Laterality Modality Computed Tomogra phy 03/28/2021 8:39 PM EDT Camden Woo MD IMG CT PROCEDURES Final Resu lt documented in this encounter Visit Diagnoses Not on filedocumented in this encounter Additional Health Concerns Infection Onset Date Last Indicated Resolved Time COVID 19 (Confirmed) 02/23/2021 03/29/2021 8:43 AM EDT COVID 19 (Confirmed) Comment:IPAC has verified patient has a COVID-19 positive result. A chart review has been completed, EPI PUI has been completed and sent to appropriate Health Dept. IPAC Pearl Peller: Romina Flores 02/23/2021 03/30/202103/30 3:59 PM EDT Respiratory Rule-Out 03/30/2021 03/30/2021 11:18 AM EDT documented as of this encounter Care Teams Financial Aid Advisor Relationship Specialty Start Date End Date Nick Espinoza MD [address] [place] [address] PCP - General 10/05/20 documented as of this encounter
--- OUTSIDE RECORDS SUMMARY | 2025-03-29 13:19 | XMS_ITS | Encounter Summary ---
Author Organization [facility] Address [address] [id number] Care Team Providers Care Data Governance Consultant Name Role Phone Nick Espinoza MD Primary Care Provider [phone] Encounter Details Date Type Department Care Team (Late Contact Info) Description 03/28/2021 Orders Only External Location [address] [place] [address] Camden Woo MD [address] [place] [address] Social History Tobacco Use Types Packs/Day Years [...] Description 09/18/2025 11:40 AM EDT Office Visit [facility] [place] [address] [facility], [address] [place] [address] Antony Maldonado MD [address] [place] [address] documented as of this encounter [...] and sent to appropriate Health Dept. IPAC Examination Scorer: Romina Flores 02/23/2021 03/30/202103/30 3:59 PM EDT Respiratory Rule-Out 03/30/2021 03/30/2021 11:18 AM EDT documented as of this encounter Care Teams Data Governance Consultant Relationship Specialty Start Date End Date Nick Espinoza MD [address] [place] [address] PCP - General 10/05/20 documented as of this encounter
--- OUTSIDE RECORDS SUMMARY | 2025-03-29 13:19 | XMS_ITS | Encounter Summary ---
Author Organization [facility] Address [address] [place] [address] Care Team Providers Care Equity Manager Name Role Phone Nick Espinoza MD Primary Care Provider [phone] Reason for Visit * Reason Onset Date Comments HCN - Patient Message 03/28/2025 Encounter Details Date Type Department Care Team (Late st Contact Info) Description 03/28/2025 Telephone [facility] [place] [address] [facility], [address] [place] [address] Antony Maldonado MD [address] [place] [address] HCN - Patient Message Social History Tobacco Use Types Packs/Day Years Used Date Smoking Tobacco: Former Cigarettes 1 43 1 2 - 2014 Smokeless Tobacco: Never Comments:Former smoker, [...] on file documented as of this encounter Miscellaneous Notes * Telephone Encounter - JulioAlicia Cesilia - 03/28/2025 2:22 PM EST Clinical Concern/Question Reason for Call: pt needs his labs fax locally to [facility], Best contact number: [phone] (home) Optimal time of day to reach caller: ANYTIME Additional comments/information from caller: None Note: Please do not reply to this message. Follow-up communication and further actions as a result of this message need to be communicated with the patient directly, if the patient is not active onMyChart. If the patient is active on MyChart, they will receive notification of the communication/outcome via Poeticahart. documented in this encounter Plan of Treatment Upcoming Encounters Date Type Department Care Team ([facility] st Contact Info) Description 09/18/2025 11:40 AM EDT Office Visit [facility] [place] [address] [facility], [address] [place] [address] Antony Maldonado MD [address] [place] [address] documented as of this encounter [...] documented as of this encounter Care Teams Equity Manager Relationship Specialty Start Date End Date Nick Espinoza MD [address] [place] [address] PCP - General 10/05/20 documented as of this encounter
--- OUTSIDE RECORDS SUMMARY | 2025-03-29 13:19 | XMS_ITS | Clinical Summary ---
Author Organization [facility] Address [address] [place] [address] Care Team Providers Care Flight Crew Time Clerk Name Role Phone Nick Espinoza MD Primary Care Provider [phone] Allergies No known active allergies Medications * This document contains information received from the source organization and may not represent a complete record from that organization. allopurinol (Zyloprim) 100 MG tablet Take 1 tablet (100 mg) by mouth 1 (one) time each day. Active aspirin 81 MG chewable tablet Chew 1 tablet (81 mg) 1 (one) time each day. aspirin 81 mg tablet 30 tablet 11 07/01/19 22 Active Melatonin 5 MG tablet tablet Take 1 tablet (5 mg) by mouth at night if needed. Active nitroglycerin (Nitrostat) 0.[address] 1 tablet (0.4 mg) under the tongue if needed for chest pain. 02/21/20 23 Active pantoprazole (Protonix) 40 MG EC tablet Take 1 tablet (40 mg) by mouth 1 (one) time each day. 09/03/19 24 Active Jardiance 10 MGIndications:Isc hemic cardiomyopathy TAKE 1 TABLET BY MOUTH ONCE A DAY 90 tablet 3 08/17/19 25 Active bisoprolol (Zebeta) 10 MG tabletIndications :Chronic systolic heart failure Take 1 tablet by mouth once daily 90 tablet 01/18/20 25 Active spironolactone (Aldactone) 25 MG tabletIndications :Ischemic cardiomyopathy Take 1 tablet by mouth once daily 90 tablet 1 02/14/20 25 Active atorvastatin (Lipitor) 80 MG tabletIndications :Mixed hyperlipidemia Take 1 tablet by mouth once daily 90 tablet 03/03/20 25 Active sacubitril-valsar perales (Entresto) 49-51 MG tabletIndications :Cardiomyopathy, ischemic Take 1 tablet by mouth 2 times a day. 60 tablet 5 03/06/20 Active atorvastatin (Lipitor) 80 MG tabletIndications :Mixed hyperlipidemia Take 1 tablet by mouth once daily 90 tablet 12/07/19 25 025 Discontinued sacubitril-valsar perales (Entresto) 24-26 MG tablet Take 1 tablet by mouth 2 times a day. 60 tablet 11 01/25/20 25 025 Discontinued(Do se adjustment) bisoprolol-hydroC HLOROthiazide (Ziac) 10-6.25 MG tablet Take 1 tablet by mouth daily. Discontinued Aspirin 81 MG capsule Take 1 tablet by mouth daily. 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 Nodule of upper lobe of right lung 04/01/2022 COVID-19 long hauler 06/12/2021 Systolic congestive heart failure 06/12/2021 Carotid artery stenosis 10/20/2018 Hyperlipidemia 10/20/2018 Obesity (BMI 30.0-34.9) 10/20/2018 Coronary artery disease 03/12/2018 Dyslipidemia 03/12/2018 Essential hypertension 03/12/2018 Unstable angina 03/31/2016 Acute meniscal tear of left knee 04/09/2015 Arthropathy, lower leg 03/09/2015 Overview (03/09/2024): Pain in joint, lower leg 03/01/2015 Overview (03/09/2024): Corneal disorder 02/21/2009 Overview (03/09/2024): Acute serous otitis media 01/31/2009 Overview (03/09/2024): Resolved Problems Problem Noted Date Diagnosed Date Resolved Date Acute kidney injury 09/08/2024 02/13/20 25 Acute COVID-19 03/09/2024 02/12/2025 Physical deconditioning 04/01/202201/24 Organized pneumonia 06/12/2021 04/01/20 Single subsegmental pulmonar y embolism without acute cor pulmonale 06/12/2021 04/01/2022 LV (left ventricular) mural thrombus 06/12/2021 04/01/2022 Abdominal wall hematoma 06/12/202102/22 NSTEMI (non-ST elevated myoc ardial infarction) 06/12/2021 02/12/2025 Pre-syncope 06/12/2021 02/12/2025 Acute on chronic respiratory failure 03/30/2021 04/01/2022 Shock 04/01/2022 Encounters Date Type Department Care Team Description 03/28/2025 Telephone [facility] [place] [address], [address] [place] [address] Antony Maldonado MD HCN - Patient Message 03/06/2025 12:40 PM EDT Office Visit [facility] [address], [address] [place] [address] Antony Maldonado MD Cardiomyopathy, ischemic (Primary Dx); Primary hypertension; Pure hypercholesterolemia; Shortness of breath; Healthcare maintenance; Coronary artery disease due to lipid rich plaque; Essential (primary) hypertension 03/06/2025 10:17 AM EDT - 03/06/2025 11:59 PM EDT Hospital Encounter Medical Office Building Cardiac Diagnostic Testing Medical Office Building [facility] [address], [address] [place] [address] Chronic systolic heart failure Discharge Disposition: Home or Self Care 03/06/2025 Travel 03/03/2025 Refill [facility] [place] [address], [address] [place] [address] Antony Maldonado MD Mixed hyperlipidemia 03/01/2025 Orders Only [facility] [place] [address], [address] [place] [address] Carol Philippe 02/27/2025 Travel 02/11/2025 Refill [facility] [place] [address], [address] [place] [address] Antony Maldonado MD Ischemic cardiomyopathy 01/24/2025 Refill [facility] [place] [address], [address] [place] [address] Antony Maldonado MD 01/17/2025 Refill [facility] [place] [address], [address] [place] [address] Antony Maldonado MD Chronic systolic heart failure (CMS/HCC) from Last 3 Months Immunizations Immunization Administration Dates Next Due Influenza, High-dose, Split Virus, Trivalent, Injectable, preservative free 02/29/2024,03/23/2023,03/24/2022,04/02,03/28/2019,03/22/2018 Influenza, high-dose, quadrivalent 02/28,03/23/2023,03/24/2022,04/02,03/28/2019,03/22/2018 Influenza, injectable, quadrivalent 03/09/2017 Pneumococcal 20-jeanine Conj Vaccine 12/25/2021 Pneumococcal Conjugate PCV 13 03/28/2019 Pneumococcal Polysaccharide PPV23 09/07/2017 Family History Medical History Relation Name Comments Conversions - Other Mother Healthy adult Relation Name Status Comments Mother Social History Tobacco Use Types Packs/Day Years [...] on file Sexual Orientation Not on file Last Filed Vital Signs Vital Sign Reading Time Taken Comments Blood Pressure 122/78 03/06/2025 12:30 PM EDT Pulse 65 03/06/2025 12:30 PM EDT Temperature 36.6 C (97.9 F) 09/12/2024 10:08 AM EDT Respiratory Rate 18 09/12/2024 10:08 AM EDT Oxygen Saturation 94% 03/06/2025 12:30 PM EDT Inhaled Oxygen Concentration - - Weight 94.5 kg (208 lb 5.4 oz) 03/06/2025 12:30 PM EDT Height 180.3 cm (5' 11 ) 09/12/2024 10:08 AM EDT Body Mass Index 29.06 09/12/2024 10:08 AM EDT Plan of Treatment Upcoming Encounters Date Type Department Care Team (Late st Contact Info) Description 09/18/2025 11:40 AM EDT Office Visit [facility] [place] [address] [facility], [address] [place] [address] Antony Maldonado MD [address] [place] [address] Health Maintenance Due Date Last Done Comments [facility]-Hepatitis C Screening 1950 [facility]-Medicare Annual Wellness (AWV) 1950 [facility]-Infant/Child/Adol SDOH Screenings 1950 [facility]- SDOH Screenings 1970 [facility]-Adult SDOH Screenings 1970 [facility]-DTaP,Tdap,and Td Vaccines (1 - Tdap) 12/19/1971 CT Colonography 1997 Colonoscopy 1997 FIT-DNA 1997 FIT 1997 FOBT 1997 Sigmoidoscopy 1997 [facility]-Colorectal Cancer Screening 1997 Lung Cancer Screening Shared Decision Making 2002 [facility]-Zoster Vaccines (1 of 2) 2002 [facility]-RSV Vaccine: 60+ Years or (1 - Risk 60-74 years 1-dose series) 2012 [facility]-Abdominal Aortic Aneurysm (AAA) Screening 2017 [facility]-Lung Cancer Screening 10/02/20232022, 04/01/2022, 07/01/2021, Additional history exists [id number] Vaccine ( - season) 2025 04/04/2022, 08/01/2020 [facility]-Depression Screening 03/06/2026 025, 03/06/2025, 01/08/2022 [facility]-Diabetes: Hemoglobin A1C Discontinued 03/30/2021 [facility]-Pneumococcal Vaccine: 50+ Years Completed 12/25/2021, 03/28/2019, 09/07/2017 [facility]-Influenza Vaccine Completed 02/10/2025 , 02/29/2024, 02/29/2024, Additional history exists [facility]-Obesity Intervention Completed 025, 09/12/2024, 03/14/2024, Additional history exists HPV Vaccines Aged Out No longer eligi ble based on patient's age to complete this topic [facility]-HIB Vaccines Aged Out No longer e ligible based on patient's age to complete this topic [facility]-Hepatitis A Vaccines Aged Out No longer eligible based on patient's age to complete this topic [facility]-IPV Vaccines Aged Out No longer e ligible based on patient's age to complete this topic [facility]-Rotavirus Vaccines Aged Out No lo nger eligible based on patient's age to complete this topic Procedures Procedure Name Priority Date/Time Associated Diagnosis Comments ECG ADULT Routine 03/06/2025 12:33 PM EDT Cardiomyopathy, ischemic ECHO, ADULT TRANSTHORACIC COMPLETE Routine 03/06/2025 10:59 AM EDT Chronic systolic heart failure CT CHEST WO IV CONTRAST Routine 10/01/2022 10:15 AM EDT Nodule of upper lobe of right lung HEMOGLOBIN A1C Routine 03/30/2021 1:43 AM EDT from Last 3 Months or Most Recently Relevant to Health Maintenance Results * ECG Adult (03/06/2025 12:33 PM EDT) EKG DIAGNOSIS CLASS Abnormal MUSE ECG Ventricular Rate 60 BPM MUSE ECG Atrial Rate 60 BPM MUSE ECG PA Interval 148 ms MUSE ECG QRSD Interval 76 ms MUSE ECG QT Interval 402 ms MUSE ECG QTC Interval 402 ms MUSE ECG P [place] 35 degrees MUSE ECG R [place] -18 degrees MUSE ECG T Wave [place] -5 degrees MUSE ECG Diagnosis Normal sinus rhythm MUSE ECG Diagnosis Cannot rule out Inferior infarct , age undetermined Need clinical information and correlation MUSE ECG Diagnosis Abnormal ECG MUSE ECG Diagnosis MUSE ECG Diagnosis Confirmed by Tao Portillo ([id number]) on 03/06/2025 12:36:09 PM MUSE ECG 03/06/2025 12:3 3 PM EDT 03/06/2025 12:36 PM EDT us Antony Maldonado MD ECG ORDERABLES Final Result MUSE ECG * ECHO, ADULT TRANSTHORACIC COMPLETE (03/06/2025 10:59 [...] Maldonado MD CV ECHO PROCEDURES Final Result * CT Chest wo IV Contrast (10/01/2022 10:15 AM EDT) Anatomical Region Laterality Modality Chest Computed Tomogra phy Impressions 10/01/2022 10:56 AM EDT Stable right upper lobe nodule. No new suspicious lung lesions. Redemonstration of background of non-UIP lung fibrosis. CRITICAL RESULT: No. COMMUNICATION: Per this written report. Drafted by Kary Martinez MD on 10/01/2022 10:49 AM Final report signed by Kary Martinez MD on 10/01/2022 10:56 AM Narrative 10/01/2022 10:56 AM EDT CLINICAL INDICATION: Lung nodule, 6-8mm TECHNIQUE: Multiple CT helical images were obtained from thoracic inlet through upper abdomen without administration of IV contrast. Total DLP (Dose-Length Product): 199.99 mGy.cm. Please note: The reported value represents the total of one or more individual components during the CT acquisition on this date and at this time, and as such, the same value may appear in more than one CT report depending on the interpreting/reporting physicians. COMPARISON: April 01, 2022 FINDINGS: Mediastinum and Pleura: No enlarged lymph nodes. Severe three-vessel coronary artery calcifications. Pre-existing mild multichamber cardiac dilatation. No pleural or pericardial effusions. Lungs: Bilateral multifocal interstitial reticulations, with peripheral and peribronchial distribution, most severe within upper lobes, with associated traction bronchiectasis and distortion of pulmonary architecture , not significantly changed. No acute groundglass opacities. No new discrete suspicious lung lesions. Stable peripheral right upper lobe nodule, image 117 of series 3. Upper Abdomen: No suspicious lesions in the partially visualized upper abdomen. Musculoskeletal: No suspicious lytic or sclerotic lesion. Procedure Note Kary Martinez MD - 10/01/2022 CLINICAL INDICATION: Lung nodule, 6-8mm TECHNIQUE: Multiple CT helical images were obtained from thoracic inlet through upperabdomen without administration of IV contrast. Total DLP (Dose-Length Product): 199.99 mGy.cm. Please note: The reportedvalue represents the total of one or more individual components during theCT acquisition on this date and at this time, and as such, the same valuemay appear in more than one CT report depending on theinterpreting/reporting physicians. COMPARISON: April 01, 2022 FINDINGS: Mediastinum and Pleura: No enlarged lymph nodes. Severe three-vesselcoronary artery calcifications. Pre-existing mild multichamber cardiacdilatation. No pleural or pericardial effusions. Lungs: Bilateral multifocal interstitial reticulations, with peripheraland peribronchial distribution, most severe within upper lobes, withassociated traction bronchiectasis and distortion of pulmonaryarchitecture , not significantly changed. No acute groundglass opacities.No new discrete suspicious lung lesions. Stable peripheral right upperlobe nodule, image 117 of series 3. Upper Abdomen: No suspicious lesions in the partially visualized upperabdomen. Musculoskeletal: No suspicious lytic or sclerotic lesion. IMPRESSION: Stable right upper lobe nodule. No new suspicious lung lesions. Redemonstration of background of non-UIP lung fibrosis. CRITICAL RESULT: No. COMMUNICATION: Per this written report. Drafted by Kary Martinez MD on 10/01/2022 10:49 AM Final report signed by Kary Martinez MD on 10/01/2022 10:56 AM [facility] IMG CT PROCEDURES Final Res ult * (ABNORMAL) Hemoglobin A1c (03/30/2021 1:43 AM EDT) Hemoglobin A1c 6.4(H) <5.7 % 03/30/2021 4:47 AM EDT [facility] Blood Venous blood specimen / Unknown Venipuncture / Unknown 03/30/2021 1:43 AM EDT 03/30/2021 1:55 AM EDT Narrative [facility] - 03/30/2021 4:47 AM EDT HA1C Interpretive Data: Diagnosis of Diabetes: Diabetic > or = 6.5% Pre-diabetic 5.7 to 6.4% Non-diabetic < or = 5.6% Glycemic Targets for Type I and Type II Diabetics: Non- Adults <7.0% Adults <6.0% Children and Adolescents <7.5% Source: [place] [employer]. Standards of medical care in diabetes,2017. Diabetes Care.2017:40 (suppl 1):S1-S135. HbA1c assay performed by an ion-exchange chromatography method that is certified traceable to the DCCT. Meghan Bosch APRN, DNP LAB BLOOD ORDERABLES Final Result [facility] [address] [place] [address] from Last 3 Months or Most Recently Relevant to Health Maintenance Insurance MEDICARE [facility] Advance Directives * Full Code (Latest Code Status on File) Date Activated Date Inactivated Comments 04/01/2021 3:39 PM 04/22/2021 4:57 PM Question Answer Comments Patient has decision-making capacity? No Healthcare Surrogate: Spouse Name of Healthcare Surrogate: Na Pascual Care Teams Flight Crew Time Clerk Relationship Specialty Start Date End Date Nick Espinoza MD [address] [place] [address] PCP - General 10/05/20
--- OUTSIDE RECORDS SUMMARY | 2025-03-29 13:19 | XMS_ITS | Encounter Summary ---
Author Organization [facility] Address [address] [address] Care Team Providers Care Lozenge Maker Name Role Phone Nick Espinoza MD Primary Care Provider [phone] Encounter Details Date Type Department Care Team (Late Contact Info) Description 03/29/2021 Orders Only External Location [address] [place] [address] Camden Woo MD [address] [place] [address] Social History Tobacco Use Types Packs/Day Years [...] Description 09/18/2025 11:40 AM EDT Office Visit [facility] [place] [address] [facility], [address] [place] [address] Antony Maldonado MD [address] [place] [address] documented as of this encounter Procedures Procedure Name Priority Date/Time Associated Diagnosis Comments US OUTSIDE IMAGES 03/29/2021 6:41 AM EDT documented in this encounter Results * US OUTSIDE IMAGES (03/29/2021 6:41 AM EDT) Anatomical Region Laterality Modality Ultrasound 03/29/2021 6:41 AM EDT us Camden Woo MD IMG US PROCEDURES Final Resu lt documented in this [...] and sent to appropriate Health Dept. IPAC Baggage Agent: Romina Flores 02/23/2021 03/30/202103/30 3:59 PM EDT Respiratory Rule-Out 03/30/2021 03/30/2021 11:18 AM EDT documented as of this encounter Care Teams Lozenge Maker Relationship Specialty Start Date End Date Nick Espinoza MD [address] [place] [address] PCP - General 10/05/20 documented as of this encounter
--- OUTSIDE RECORDS SUMMARY | 2025-03-29 13:19 | XMS_ITS | Encounter Summary ---
Author Organization [facility] Address [address] [place] [address] Care Team Providers Care Group Product Manager Name Role Phone Nick Espinoza MD Primary Care Provider [phone] Encounter Details Date Type Department Care Team (Late st Contact Info) Description 03/27/2015 Orders Only External Location [address] [place] [address] Provider, External Social History Tobacco Use Types Packs/Day Years Used Date Smoking Tobacco: Never Assessed Sex and Gender Information Value Date Recorded Sex Assigned at Not on file Legal Sex Male 7:32 PM EDT Gender Identity Not on file Sexual Orientation Not on file documented as of this encounter Plan of Treatment Upcoming Encounters Date Type Department Care Team (Late st Contact Info) Description 09/18/2025 11:40 AM EDT Office Visit [facility] [place] [address] [address] [facility], [address] [place] [address] Antony Maldonado MD [address] [place] [address] documented as of this encounter Procedures Procedure Name Priority Date/Time Associated Diagnosis Comments MR MSK OUTSIDE IMAGES 03/27/2015 10:57 AM EST documented in this encounter Results * MR MSK OUTSIDE IMAGES (03/27/2015 10:57 AM EST) Anatomical Region Laterality Modality Magnetic Resonan ce 03/27/2015 10:5 7 AM EST us External Provider IMG MRI PROCEDURES Final Resul t documented in this encounter Visit Diagnoses Not on filedocumented in this encounter Additional Health Concerns Infection Onset Date Last Indicated Resolved Time COVID 19 (Confirmed) 02/23/2021 03/29/2021 021 8:43 AM EDT COVID 19 (Confirmed) Comment:IPAC has verified patient has a COVID-19 positive result. A chart review has been completed, EPI PUI has been completed and sent to appropriate Health Dept. IPA Union Representative: Romina Mark 02/23/2021 03/30/202103/30 3:59 PM EDT Respiratory Rule-Out 03/30/2021 03/30/2021 021 11:18 AM EDT documented as of this encounter Care Teams Group Product Manager Relationship Specialty Start Date End Date Nick Espinoza MD [address] [place] [address] PCP - General 10/05/20 documented as of this encounter
--- OUTSIDE RECORDS SUMMARY | 2025-03-29 13:19 | XMS_ITS | Encounter Summary ---
Author Organization [facility] Address [address] [place] [address] Care Team Providers Care Enterprise Systems Engineer Name Role Phone Nick Espinoza MD Primary Care Provider [phone] Encounter Details Date Type Department Care Team (Late Contact Info) Description 03/01/2025 Orders Only [facility] [address], [address] [place] [address] [place] [address] Social History Tobacco Use Types Packs/Day Years Used Date Smoking Tobacco: Former Cigarettes 1 43 1 - 2014 Smokeless Tobacco: Never Comments:Former smoker, [...] Description 09/18/2025 11:40 AM EDT Office Visit [facility] [address], [address] [place] [address] Antony Maldonado MD [address] [place] [address] documented as of this encounter Visit [...] documented as of this encounter Care Teams Enterprise Systems Engineer Relationship Specialty Start Date End Date Nick Espinoza MD [address] [place] [address] PCP - General 10/05/20 documented as of this encounter
--- OUTSIDE RECORDS SUMMARY | 2025-03-29 13:19 | XMS_ITS | Encounter Summary ---
Author Organization [facility] Address [address] [place] [address] Care Team Providers Care Clinique Counter Manager Name Role Phone Nick Espinoza MD Primary Care Provider [phone] Encounter Details Date Type Department Care Team (Latest Contact Info) Description 02/27/2025 Travel Social History Tobacco Use Types Packs/Day [...] Description 09/18/2025 11:40 AM EDT Office Visit [facility] [address], [address] [place] [address] Antony Maldonado MD [address] [place] [address] documented as of this encounter [...] documented as of this encounter Care Teams Clinique Counter Manager Relationship Specialty Start Date End Date Nick Espinoza MD [address] [place] [address] PCP - General 10/05/20 documented as of this encounter
--- OUTSIDE RECORDS SUMMARY | 2025-03-29 13:19 | XMS_ITS | Data Portability ---
Author Organization [facility] Mohinder mo, [facility] Address [address] [place] [address] Care Team Providers Care Medical Doctor Nuclear Medicine Name Role Phone ADRYAN GUIDO Primary Care Provider Assessment Encounter Date Assessment Date Assessment LastModified by Organization Details LastModified Time 08/03/2023 08/03/2023 good rehab potential return for upgraded HEP after sutures removed Not available 08/03/2023 10:37:34 08/12/2023 08/12/2023 good rehab potential with HEP only now Not available 08/12/2023 15:48:04 08/12/2023 08/12/2023 CTR/SQUNT [email or web address] Not available 07/24 11:29:31 Plan of Treatment Reminders Order Date Submit Date Provider Last Modified By Organization Details Last Modified Time Details Appointments None record ed. Lab None record ed. Referral None record ed. Procedures None record ed. Surgeries None record ed. Imaging None record ed. Medication Orders None record ed. Patient TargetsNo targets recorded. Patient InstructionsNo instructions recorded. Reason for Referral None Reported. Results Created Date Observation Date Name Description Value Unit Range Abnormal Flag Note LastModifiedBy Organization Detail LastModifiedTime 07/22/19 24 07/22/2023 nerve condu ction study /EMG, upper extre mity (PROC ) No observ ation record ed. mona Hutchison MD [address] [place], [address], 07/22/2023 12:56:39 Result Notes None recorded. Problems No Known Problems Procedures Surgical History Date Name Laterality Status Provider Name and Address Organization Details Recorded Time 08/12/19 24 OT Therapeutic Exercise completed CHARLES WISE JR, OTR/L, CHT [address] [place], [address], [facility] 08/12/2023 15:47:44 08/12/19 24 PT Hot/Cold Pack completed CHARLES WISE JR, OTR/L, CHT [address] [place], [address], [facility] 08/12/2023 15:47:46 08/03/19 24 OT Evaluation - Moderate complexity completed CHARLES WISE JR, OTR/L, CHT [address] [place], [address], [facility] 08/03/2023 10:11:43 08/03/19 24 OT Therapeutic Exercise completed CHARLES WISE JR, OTR/L, CHT [address] [place], [address], [facility] 08/03/2023 10:37:11 07/30/19 24 Op Note completed ADRYAN JACKMAN MD [address] [place], [address], [facility] 07/30/2023 13:20:46 07/22/19 24 Electromyography (EMG) with Nerve Conduction Study (NCV) completed Ashleigh Black (Nicky) [facility] 07/22/2023 12:44:37 Imaging Results None recorded. Procedure Notes None recorded. Medical Equipment None Reported. Allergies No known drug allergies Medications Name Sig Start Date Stop Date Status Note LastModified by Organization Details LastModified Time atorvastati n 80 mg tablet Take 1 tablet every day by oral route. active Not Available Not Available No t Available bisoprolol 10 mg-hydrochl orothiazide 6.25 mg tablet Take 1 tablet every day by oral route. active Not Available Not Available No t Available allopurinol 100 mg tablet Take 1 tablet every day by oral route. active Not Available Not Available No t Available hydrocodone 10 mg-acetamin ophen 325 mg tablet TAKE 1/2 - 1 TABLET EVERY 6 HOURS NEEDED FOR SEVERE POST SURGICAL PAIN 08/11 completed Not Available Not Available Not Available spironolact one 25 mg tablet Take 1 tablet every day by oral route. active Not Available Not Available No t Available meloxicam 7.5 mg tablet TAKE 1 TABLET PO DAILY WITH FOOD REGARDLES S OF PAIN FOR 1 WEEK, THEN ONLY NEEDED FOR PAIN RELIEF THEREKHURRAM R 08/11 completed Not Available Not Available Not Available gabapentin 100 mg capsule TAKE 1 CAPSULE EVERY NIGHT BEFORE BED FOR 1 WEEK 08/11 completed Not Available Not Available Not Available Asprin Ec Low Dose 81 mg tablet,mansi yed release Take 1 tablet every day by oral route. active Not Available Not Available No t Available Entresto 24 mg-26 mg tablet Take 1 tablet twice a day by oral route. active Not Available Not Available No t Available Vitals Date Recorded Body height Body mass index (BMI) Body weight Pain severity - 0-10 verbal numeric rating [Score] - Reported Provider Name and Address Organization Details Last Updated DateTime 07/22/2023 180.34 cm 29.3 kg/m2 65073.4 g 5 [facility] 07/22/2023 13:35:04 Date Recorded Body height Body mass index (BMI) Body weight Pain severity - 0-10 verbal numeric rating [Score] - Reported Provider Name and Address Organization Details Last Updated DateTime 08/12/2023 180.34 cm 29.3 kg/m2 77952.4 g 0 [facility] 08/12/2023 14:58:54 Social History None recorded. Functional Status None recorded. Mental Status None recorded. Family History Nothing Reported. Medical History No medical history recorded. Past Encounters Encounter ID Performer Location Encounter Start Date Encounter Closed Date Diagnosis/Indication Diagnosis SNOMED-CT Code Diagnosis ICD10 Code Diagnosis IMO Codes Diagnosis Note [id number] OSMAR AGUIRRE PA-C [facility] [address] [place] [address] 07/08/2023 11:41:01 07/08/2023 12:19:45 Carpal tunnel syndrome 03216931 G56.01 Right carpal tunnel versus cubital tunnel syndrome. [id number] ADRYAN JACKMAN MD [facility] [address] [place] [address] 07/22/2023 13:27:30 07/22/2023 14:01:14 Carpal tunnel syndrome 82498588 G56.01 Right carpal tunnel & cubital tunnel syndrome. [id number] GABINO HUTCHISON MD [facility]UR[facility] [address] [place] [address] 07/22/2023 10:25:58 07/23/2023 04:34:28 Carpal tunnel syndrome of right wrist 6858466988 26769 G56.01 Ulnar neur opathy of right arm 8432241181 76015 G56.21 Paresthesia of hand 3090 45691 R20.2 Pain of right hand 16789 85445 11287 M79.641 [id number] ADRYAN JACKMAN MD SURGERY SCHEDULE [address] [place] [address] 07/30/2023 09:44:04 07/30/2023 09:44:38 [id number] CHARLES WISE JR, OTR/L, CHT PHYSICAL THERAPY / HAND THERAPY [facility] [address] [place] [address] 08/03/2023 10:07:16 08/04/2023 12:31:51 Ulnar nerve entrapment at elbow 716846350 G56.21 [id number] ADRYAN JACKMAN MD [facility] [address] [place] [address] 08/12/2023 13:55:46 08/12/2023 15:22:07 Postoperative care [id number] Z48.89 10-14 days s/p right Carpal Tunnel Release, and right subcutaneo us ulnar nerve transposit ion.Adrian hardy is doing well postoperat ively. The patient should refrain from heavy lifting for 2 weeks. He should continue to work with hand therapist. Patient is healing well, and able to get incisions wet or apply lotion. F/U PRN. [id number] CHARLES WISE JR, OTR/L, CHT PHYSICAL THERAPY / HAND THERAP[facility] [address] [place] [address] 08/12/2023 13:56:23 08/13/2023 04:43:11 Ulnar nerve entrapment at elbow [id number] G56.21 Health Concerns Section Related Observation LastModified by Organization Detai ls LastModified Time None Recorded Concern Status LastModified by Organization Details LastModified Time None Recorded Advance Directives Directive None Recorded Payers Insurance Date Sequence Insurance Name Policy Number Policy Reid Covered Member ID Reid Member ID Guarantor Name 07/30/2023 1 [place]ESS (PP[place]) [id number] Les Pascual [id number] Les Pascual 07/30/2023 [employer] - DMEPOS ASSIGNED (MEDICARE DME REGION B) Les Pascual [id number] Les Pascual 08/09/2023 2 AARP (MEDICARE SUPPLEMENT) Les Pascual [id number] Les Pascual 07/30/2023 1 [place] Les Pascual [id number] Les Pascual 07/30/2023 1 [facility] Les Pascual [id number] Les Pascual Notes Date Note Type Note Provider Name and Address Organization Details Recorded Time 4 text/html Consult requested by: [facility] Care Physician: Dr. Skip Guido Hand dominance: RightLocation: Right Hand Pain level: 5 /10 Duration: 1 month Recent Surgery: NoProcedure:Date of surgery:Duration: In office procedure? No Previous upper extremity surgery? NoProcedure:Approximate date of surgery:Surgeon (if known):Have you or any of your immediate family members been seen by our hand surgeons before? Yes , Raegan is a pt of Dr. Jackman's Currently employed?: Retired Patient arrived in: n/a Special Service Representative Strength: right: left: Mr. Pascual is here for recheck of rt hand and to discuss EMG results. ADRYAN JACKMAN MD [address] [place], [address], [facility] 07/22/2023 14:23:59 4 text/html [id number] CTR; RIGHT SQUNTPerformed by MD CHARLES Osullivan JR, OTR/L, CHT [address] [place], [address], [facility] 08/03/2023 10:37:52 4 text/html POST OP GLOBAL VISITDATE OF SURGERY: 07/30/2023TIME POST SURGERY:10-14 DAYSSURGERY:right Carpal Tunnel ReleaseRight subcutaneous ulnar nerve transpositionINTERVAL HISTORY: PREOP SYMPTOMSBETTER PAIN LEVEL (VAS)0/10 OVERALL ASSESSMENTIMPROVING NEW SYMPTOMS OR QUESTIONS: Mr. Pascual is here a post op visit. Overall doing well, he stated the n/t has subsided. OTHER RECENT SURGERIES: n/a EMPLOYMENT STATUS: retired ADRYAN JACKMAN MD [address] [place], [address], [facility] 08/12/2023 15:38:50 4 text/html [id number] CTR; RIGHT SQUNTPerformed by MD CHARLES Osullivan JR, OTR/L, T [address] [place], [address], [facility] 08/12/2023 15:48:18
--- OUTSIDE RECORDS SUMMARY | 2025-03-29 13:19 | XMS_ITS | Clinical Summary ---
Author Organization [facility] Address [address] [place] [address] Care Team Providers Care Police Guard Name Role Phone Nick Espinoza MD Primary Care Provider [phone] Allergies No known active allergies Medications bisoprolol (ZEBeta) 10 MG tablet Take 10 mg by mouth Daily. Active lisinopril (PRINIVIL,ZESTR IL) 20 MG tablet Take 20 mg by mouth Daily. Active nitroglycerin (NITROSTAT) 0.[address] 0.4 mg under the tongue Every 5 (Five) Minutes As Needed for chest pain. Take no more than 3 doses in 15 minutes. Active aspirin EC 325 MG EC tablet Take 1 tablet by mouth Daily. 90 tablet 4 04/02/2016 Active atorvastatin (LIPITOR) 80 MG tablet Take 1 tablet by mouth Every Night. 90 tablet 4 04/02/2016 Active prasugrel (EFFIENT) 10 MG tablet Take 1 tablet by mouth Daily. 90 tablet 4 04/02/2016 Active amLODIPine (NORVASC) 10 MG tablet TAKE ONE TABLET BY MOUTH ONCE DAILY 90 tablet 3 02/22/2018 Active Active Problems Problem Noted Date Diagnosed Date Coronary artery disease 03/12/2018 Essential hypertension 03/12/2018 Dyslipidemia 03/12/2018 Unstable angina 03/31/2016 Family History Medical History Relation Name Comments Heart attack Father No Known Problems Mother Relation Name Status Comments Father Mother Alive Social History Tobacco Use Types Packs/Day Years Used Date Smoking Tobacco: Former Cigarettes 0 07/09/1969 - 07/09/2014 Smokeless Tobacco: Never Tobacco Cessation:Counseling Given: No Alcohol Use Standard Drinks/Week Comments No 0 (1 standard drink = 0.6 oz pur e alcohol) Abuse Screen Answer Date Recorded Unsafe at Home or Work/School Not on file Feels Threatened by Someone? Not on file 03/2023 Does Anyone Keep You from Co ntacting Others or Doint Things Outside the Home? Not on file 03/04/2023 Physical Sign of Abuse Present Not on file 1 Housing Stability Answer Date Recorded Current Living Arrangements Not on file 02/22 Potentially Unsafe Housing Conditions Not on mary e 03/04/2023 Family and Community Support Answer Fernandez e Recorded Help with Day-to-Day Activities Not on file 03/04/2023 Lonely or Isolated Not on file 03/04/2023 Employment Answer Date Recorded Do you want help finding or keeping work or a filemon b? Not on file 03/04/2023 Disabilities Answer Date Recorded Concentrating, Remembering, or Making Decisions Difficulty Not on file 03/04/2023 Doing Errands Independently Difficulty Not on fi le 03/04/2023 Education Answer Date Recorded Help with school or training? Not on file Preferred Language Not on file 03/04/2023 Sex and Gender Information Value Date Recorded Sex Assigned at Not on file Legal Sex Male 3:51 AM EST Gender Identity Not on file Sexual Orientation Not on file Last Filed Vital Signs Vital Sign Reading Time Taken Comments Blood Pressure 154/88 03/09/2017 1:28 PM EDT Pulse 70 03/09/2017 1:28 PM EDT Temperature 36.6 C (97.9 F) 04/02/2016 9:31 AM EST Respiratory Rate 16 04/02/2016 9:31 AM EST Oxygen Saturation 98% 04/01/2016 7:00 PM EST Inhaled Oxygen Concentration - - Weight 98 kg (216 lb) 03/09/2017 1:28 PM EDT Height 180.3 cm (5' 11 ) 03/09/2017 1:28 PM EDT Body Mass Index 30.13 03/09/2017 1:28 PM EDT Plan of Treatment Health Maintenance Due Date Last Done Comments TDAP/TD VACCINES (1 - Tdap) 12/19[birth year]1971 COLOGUARD 1997 COLON CANCER SCREENING 5 YEAR SIGMOIDOSCOPY 1997 COLONOSCOPY 1997 [address] CANCER SCREENING [address] COLONOGRAPHY 1997 FECAL OCCULT BLOOD TEST 1997 FIT Testing (1 year) 1997 Pneumococcal Vaccine 50+ (1 of 1 - PCV) 2002 ZOSTER VACCINE (1 of 2) 2002 ANNUAL PHYSICAL 03/09/2017 HEPATITIS C SCREENING 03/09/2017 AAA SCREEN ONCE 2017 INFLUENZA VACCINE 12/23/2024 COVID-19 Vaccine ( season) 2025 Medical Devices Implanted Type Area Crystal Finisher Device Identifier Shelf Expiration Date Model / Serial / Lot Stent Xience Alpine Topher Rx [id number] - [id number] Implanted:Qty: 1 on 03/31/2016 by Venkat Hatch MD at [facility] [employer] [id number] / / Stent [employer]ience Alpine Topher Rx [id number] - [id number] Implanted:Qty: 1 on 03/31/2016 by Venkat Hatch MD at [facility] [employer] [id number] / / Stent [employer]ience Alpine Topher Rx [id number] - [id number] Implanted:Qty: 1 on 03/31/2016 by Venkat Hatch MD at [facility] [employer] [id number] / / Advance Directives * Full Code (Latest Code Status on File) Date Activated Date Inactivated Comments 03/31/2016 12:32 PM 04/02/2016 1:32 PM Care Teams Police Guard Relationship Specialty Start Date End Date Nick Espinoza MD [address] [place] [address] [address] [facility] [place] [address] PCP - General Adolescent Medicine 03/31/16
--- OUTSIDE RECORDS SUMMARY | 2025-03-29 13:20 | XMS_ITS | Patient Health Record ---
Author Organization [facility] Address [address] [place] [address] Care Team Providers Care Sales And Management Trainee Name Role Phone Nick Espinoza Primary Care Provider Migration, Provider Unavailable Unavailable Allergies No Known Allergies Medications Medication SIG (Take, Route, Frequency, Duration) Notes Start Date End Date Status Aspirin 81 MG 1 tab(s) orally once a day; Duration: 90 days 04/02/2020 Active Valsartan 80 MG 1 tab(s) orally once a day Active Jardiance 25 MG 1 tab(s) orally once a day (in the morning) Active Allopurinol 100 MG Take 1 tablet by jr th once daily; Duration: 90 Active Spironolactone 25 MG 1 tablet orally onc e a day; Duration: 30 days Active Atorvastatin Calcium 80 MG 1 tab(s) oral ly once a day; Duration: 90 days Active Nitroglycerin 0.4 MG 1 tab(s) sublingual ly every 5 minutes; Duration: 30 days Active Bisoprolol Fumarate 10 MG 1 tab(s) orall y once a day; Duration: 30 days Active Pantoprazole Sodium 40 MG Take 1 tablet by mouth once daily for 90 days; Duration: 90 Active Diclofenac Sodium 1 % appy three times d aily Externally daily; Duration: 90 days 09/19/2024 Active Immunizations Vaccine Route Administration Date Status Comme nts Prevnar PCV-13 (Pneumococcal conjugate 13) IM Intramuscular 03/28/2019 Administered Pneumovax 23 IM Intramuscular 09/07/2017 Administered Influenza-Fluzone 3+years (NON-MEDICARE) IM Intramuscular 05/14/2015 Administered Influenza-Fluzone 3+years (NON-MEDICARE) IM Intramuscular 03/29/2016 Administered Influenza-Fluzone 3+years (NON-MEDICARE) IM Intramuscular 03/09/2017 Administered Fluzone High Dose IM Intramuscular 03/22/2018 Administered Fluzone High Dose IM Intramuscular 03/28/2019 Administered Fluzone High Dose IM Intramuscular 04/02/2020 Administered Fluzone High Dose IM Intramuscular 03/24/2022 Administered Fluzone High Dose IM Intramuscular 03/23/2023 Administered Fluzone High Dose IM Intramuscular 02/29/2024 Administered Fluzone High Dose IM Intramuscular 02/10/2025 Administered Social History Tobacco Use: Social History Observation Description Date Details (start date - stop date) Former Smoker NA - NA Smoking: Question Answer Notes Are you a: former smoker How long has it been since you last smoked? 1-5 years Section Notes: Lives with spouse. Lives with spouse. Lives with spouse. Lives with spouse. Lives with spouse. Lives with spouse. Lives with spouse. Lives with spouse. Lives with spouse. Lives with spouse. Lives with spouse. Lives with spouse. Lives with spouse. Lives with spouse. Lives with spouse. Lives with spouse. Lives with spouse. Lives with spouse. Lives with spouse. Lives with spouse. Lives with spouse. Lives with spouse. Lives with spouse. Lives with spouse. Lives with spouse. Lives with spouse. Lives with spouse. Lives with spouse. Lives with spouse. Lives with spouse. Lives with spouse. Lives with spouse. Lives with spouse. Lives with spouse. Lives with spouse. Problems Problem Type SNOMED Code ICD Code Onset Dates Problem Status W/U Status Risk Notes Problem Mixed hyperlipidemia (662708351) Mixed hyperlipidemia (E78.2) Active confirmed Problem Essential hypertension (24043375) Essential (primary) hypertension (I10) Active confirmed Problem Arthropathy (581453889) Arthropathy, unspecified (M12.9) Active confirmed Problem Arthritis (5558340) Arthritis (M19.90) Active confirmed Problem Hyperlipidemia (56772069) Hyperlipemia, idiopathic familial (E78.5) Active confirmed Problem Exertional angina (473685545) Exertional angina (I20.8) Active confirmed Problem Hyperlipidemia (11767469) Hyperlipidemia, unspecified (E78.5) Active confirmed Problem Tachycardia (3150947) Tachycardia (R00.0) Active confirmed Problem Right shoulder pain (3509970891) Right shoulder pain (M25.511) Active confirmed Problem Atherosclerosis of coronary artery without angina pectoris (712898713587156) Atherosclerosis of [place] coronary artery of [place] heart without angina pectoris (I25.10) Active confirmed Problem Polycythemia (402526149) Polycythemia (D75.1) Active confirmed Problem Dyspnea on exertion (45828270) Dyspnea on exertion (R06.09) Active confirmed Problem Pulmonary nodule (265003472) Pulmonary nodule (R91.1) Active confirmed Problem Insomnia (052960295) Insomnia, unspecified type (G47.00) Active confirmed Problem Chronic kidney disease stage 3 (disorder) (432980881) CKD (chronic kidney disease), stage III (N18.3) Active confirmed Problem Pulmonary fibrosis (19135955) Pulmonary fibrosis (J84.10) Active confirmed Problem History of pulmonary embolus (291970428) History of pulmonary embolism (Z86.711) Active confirmed Problem Kidney stone (19938997) Left nephrolithiasis (N20.0) Active confirmed Problem History of carotid endarterectomy (012388073) Status post carotid endarterectomy (Z98.890) Active confirmed Problem Chronic kidney disease stage 3A (disorder) (140926034) Chronic kidney disease, stage 3a (N18.31) Active confirmed Problem Ventricular premature depolarization (593817572) Premature ventricular beat (I49.3) Active confirmed Problem Chronic kidney disease stage 3B (disorder) (873249930) Stage 3b chronic kidney disease (CKD) (N18.32) Active confirmed Problem Left ventricular thrombus (disorder) (236496101) LV (left ventricular) mural thrombus (I51.3) Active confirmed Problem Systolic heart failure (627452912) Heart failure with reduced left ventricular function (I50.20) Active confirmed Vital Signs Heart Rate 78 /min 02/10/2025 Temperature 97.6 degrees Fahrenheit 02/10/2025 Blood pressure diastolic 72 mm Hg 02/10/2025 Height 5 ft 10 in in 02/10/2025 Blood pressure systolic 106 mm Hg 02/10/2025 Weight 204.6 lbs 02/10/2025 BMI 29.35 kg/m2 02/10/2025 Encounters Encounter Location Date Provider Diagnosis [facility] [address] [place] [address] 08/27/2024 Provider Migration [facility] [address] [facility] [place] [phone] 07/06/2024 Nick Besson Essential (primary) hypertension I10 ; Arthritis M19.90 ; Hyperlipidemia, unspecified E78.5 and Atherosclerosis of [place] coronary artery of [place] heart without angina pectoris I25.10 [facility] [address] [facility] [address] [place] [address] 09/19/2024 Nick Besson Polycythemia D75.1 ; Arthritis M19.90 and Muscular imbalance M62.89 [facility] [address] [place] [address] 10/12/2024 Nick Besson Essential (primary) hypertension I10 ; Stage 3b chronic kidney disease (CKD) N18.32 and Snoring R06.83 [facility] [address] [place] [address] 02/10/2025 Nick Besson Immunization(s) administered Z23 ; Heart failure with reduced left ventricular function I50.20 ; Essential (primary) hypertension I10 ; Atherosclerosis of [place] coronary artery of [place] heart without angina pectoris I25.10 and Chronic kidney disease, stage 3a N18.31 [facility] [address] [facility] [address] [place] [address] 09/19/2024 Nick Besson Assessments Encounter Date Diagnosis (ICD Code) Assessment Notes Treatment Notes Treatment Clinical Notes Section Notes 07/06/2024 Essential (primary) hypertension (ICD-10 - I10) well-controlled. Continue medications. Follow-up in 4 months. 07/06/2024 Arthritis (ICD-10 - M19.90) Continue Tylenol as needed. 09/19/2024 Arthritis (ICD-10 - M19.90) knot on elbow and swollen fingers on right hand seem to be OA related he is right hand dominant no concerns for infection or gout attack start voltaren gel, can take tylenol as needed, avoid NSAIDs 09/19/2024 Polycythemia (ICD-10 - D75.1) last hCT 55.9, previously elevated to 53 quit smoking about a decade ago Plan for sleep study and repeat labs at annual visit at the end of 10/12/2024 Essential (primary) hypertension (ICD-10 - I10) Blood pressure under excellent control. No changes in plan. Continue current medications. 10/12/2024 Stage 3b chronic kidney disease (CKD) (ICD-10 - N18.32) Good urine output. No change in character of urine, follow-up 4 months with urinalysis and labs 02/10/2025 Immunization(s) administered (ICD-10 - Z23) Flu [...] hypertension (ICD-10 - I10) See notes above 10/12/2024 Snoring (ICD-10 - R06.83) I reviewed order for sleep study. Will personally review sleep study when he returns. 09/19/2024 Muscular imbalance (ICD-10 - M62.89) intermittent pain in right shoulder and neck in trapezius or levator scapulae territory no loss of sensation, strenght, numbness, tingline, headache, no point tenderness in cervical spine recommended tylenol and Solanpas patches 07/06/2024 Hyperlipidemia, unspecified (ICD-10 - E78.5) Most recent labs looked good. No interventions necessary. Continue medications and follow-up in 4 months. 07/06/2024 Atherosclerosis of [place] coronary artery of [place] heart without angina pectoris (ICD-10 - I25.10) Follow-up in 4 months. Reviewed prior labs... will need close f/u in September with labs... ordered by me 02/10/2025 Atherosclerosis of [place] coronary artery of [place] heart without angina pectoris (ICD-10 - I25.10) Asymptomatic, on appropriate therapy 02/10/2025 Chronic kidney disease, stage 3a (ICD-10 - N18.31) Function been stable, I reviewed last labs with him. No changes in plan Plan Of Treatment Pending Test Test Name Order Date N-CBC 06/28/2007 X-Lipid Profile 06/28/2007 N-CMP 06/28/2007 Echocardiogram 03/28/2021 Physical Therapy 06/22/2012 N-PSA Screening 06/28/2007 H-CBC with AUTO DIFF 07/20/2009 H-CBC with AUTO DIFF 08/09/2010 H-CMP 05/05/2013 H-CMP 04/04/2011 H-CMP 07/20/2009 H-CMP 08/09/2010 H-LIPID PANEL 08/09/2010 H-LIPID PANEL 07/20/2009 H-LIPID PANEL 04/04/2011 H-LIPID PANEL 05/05/2013 H-PSA SCREEN 05/05/2013 H-PSA SCREEN 07/20/2009 H-PSA SCREEN 08/09/2010 H-TSH 07/20/2009 H-URINALYSIS 08/09/2010 C-CBC 03/28/2019 C-CMP 03/28/2019 C-LIPID PANEL 03/28/2019 C-URINE CULTURE 07/08/2013 H-TESTOSTERONE 08/09/2010 M-Complete Blood Count Auto Diff 020 M-Comprehensive Metabolic Panel 04/02/20 20 M-Lipid Panel 04/02/2020 Physical Therapy Eval and Treat 09/18/19 23 Future Test Test Name Order Date H-CBC with AUTO DIFF 12/17/2015 H-CMP 12/17/2015 H-LIPID PANEL 12/17/2015 Next Appt Details Provider Name:Nick Espinoza, 04/10/2025 10:30:00 AM, [address] [facility], [address], [place], [address], Insurance Providers Payer Name Payer Address Payer Phone Subscriber Number Group Number Insured Name Patient Relationship to Insured Coverage Start Date Coverage End Date [place] [address] [place] [address] [id number] Ankur Les Self - patient is the insured [facility] [address] [place] [phone] [id number] Ankur Les Self - patient is the insured [address] [place] [address] ACL Les Pascual Self - patient is the insured Medications Administered Medication Instructions Date of Administration Dosage Notes Dexamethasone 4mg Injection 03/06/2021 4 mg Triamcinolone Acetonide 40mg Injection 04/12/2019 1 mL Medical (General) History Medical History History ICD Code Arthritis hypertension erectile dysfunction Hyperlipidemia CKD Kidney stones Normal colonoscopy 2016 at [facility] Low Dose CT chest 11/11 with nodule requiring 6 month f/u - follow up on CT with contrast 05/13 unchanged. - [email or web address] 02/2024 covid LV mural thrombus Surgical History Surgery Date(Month/Year) Right knee arthroscopy 2007 Nasal septum repair 2009 Orthoscopic surgery-lt knee 05/2015 stents x 3 03/2016 cardiac cath 03/2016 kidney stone 05/2017 LEft carotid endarterectomy 10/25 Rt carotid endarterectomy 12/17 right carpal tunnel release 08/2023 Hospitalization History Reason Date(Month/Year) Codie Coreas for 1 wk 04/2021 - Covid 03/28-04/29/2021 Lt and Rt carotid endarterectomy 10/28 an d 12/17 [facility] then transferred to [facility] for kidney s tones 05/2017 [facility] ([facility]) [id number]
[2025-03-29 13:32] LABS: Hematocrit 51.5 % (42.0-52.0); Hemoglobin 17.6 g/dL (14.1-18.0); Immature Granulocytes % 0.3 %; Mean Corpuscular HGB Conc 34.2 g/dL (31.8-35.4); Mean Corpuscular Hemoglobin 32.3 pg (27.0-31.2); Mean Corpuscular Volume 94.5 fl (80-94); Nucleated Red Blood Cells % 0 %; Platelet Count 243 K/mm3 (142-424); Red Blood Count 5.45 M/mm3 (4.60-6.20); Red Cell Distribution Width-SD 46.0 fL; White Blood Count 8.8 K/mm3 (4.8-10.8)
[2025-03-29 13:41] LABS: INR 1.01 (0.9-1.1); Prothrombin Time 11.2 seconds (10.1-12.5)
[2025-03-29 14:20] LABS: Alanine Aminotransferase 21 U/L (12-78); Albumin Level 4.3 g/dl (3.5-5.0); Albumin/Globulin Ratio 1.1 (1.1-1.8); Alkaline Phosphatase 90 U/L (38-126); Anion Gap 12.4 mEq/L (5-15); Aspartate Amino Transferase 28 U/L (17-59); Bilirubin,Total 0.8 mg/dl (0.2-1.3); Blood Urea Nitrogen 18 mg/dl (9-20); Calcium 9.5 mg/dl (8.4-10.2); Carbon Dioxide 26 mmol/L (22.0-30.0); Chloride 102 mmol/L (98-107); Cholesterol 120 mg/dl (140-200); Creatinine,Serum 1.20 mg/dl (0.66-1.25); Estimated Glomerular Filt Rate 60 ml/min (>60); GFR (African American) 72 ML/MIN (>60); Globulin 4.0 g/dL (1.3-3.2); Glucose 92 mg/dl (74-100); HDL Cholesterol 47 mg/dl (40-60); Magnesium 1.6 mg/dl (1.6-2.3); Potassium 4.4 mmoL/L (3.5-5.1); Sodium 136 mmol/L (136-145); Total Protein,Serum 8.3 g/dl (6.3-8.2); Triglycerides 153 mg/dl (30-150)
[2025-03-29 14:30] LABS: NT Pro Brain Natriuretic Pep. 258 pg/mL (0-125)
[2025-03-29 14:36] LABS: Free T4 (Free Thyroxine) 1.11 ng/dl (0.78-2.19)
[2025-03-29 14:37] LABS: Hemoglobin A1C 6.3 % (4.0-6.0)
[2025-03-29 14:52] LABS: Thyroid Stimulating Hormone 2.14 uIU/mL (0.465-4.68)
== END 2025-03-29 23:59 | disposition home or self-care (01) ==
LOC: LAB 13:06
PROVIDERS: PCP Internal Medicine Adolescent Medicine; Visit Provider Internal Medicine
DX: Z00.00 Encounter for general adult medical examination without abnormal findings (principal); I25.5 Ischemic cardiomyopathy; E11.9 Type 2 diabetes mellitus without complications; E78.00 Pure hypercholesterolemia, unspecified; I10 Essential (primary) hypertension; R06.02 Shortness of breath
CPT/HCPCS: 36415; 80053; 80061; 83036; 83735; 83880; 84439; 84443; 85025; 85610

== ENCOUNTER 2025-04-10 12:06 | Outpatient (CLI) | payer MEDICARE, SELFPAY ==
--- NOTE | 2025-04-10 12:10 | XR_ITS ---
FINAL REPORT TECHNIQUE: Right forearm 2 views CLINICAL HISTORY: SUBCUTANEOUS NODULE OF UPPER EXTREMITY COMPARISON: None FINDINGS: RIGHT FOREARM: Two images of the right forearm were obtained. There is no evidence of fracture or dislocation. The joint spaces are intact. Markers were placed at the site of a soft tissue nodule. There is a small soft tissue protuberance involving the posterior aspect of the forearm at the marker. There is no evidence of bony mass or erosion, and the underlying radius and ulna appear normal. IMPRESSION: Small soft tissue protuberance involving the posterior aspect of the forearm without underlying osseous abnormality. Reviewed, Interpreted and Dictated by Harvey Saldana MD Transcribed by Marcela Do Authenticated and . [facility]
== END 2025-04-10 23:59 | disposition home or self-care (01) ==
LOC: RAD 12:07
PROVIDERS: PCP Internal Medicine Adolescent Medicine; Visit Provider Internal Medicine Adolescent Medicine
DX: R22.31 Localized swelling, mass and lump, right upper limb (principal)
CPT/HCPCS: 73090